=== PATIENT | male | born 1940 | race Caucasian/White ===

== ENCOUNTER 2017-07-08 09:10 | Observation (INO) ==
[2017-07-08] MEDS ORDERED: 0.9 % Sodium Chloride 1,000 ML IVC ONE (09:34)
--- NOTE | 2017-07-08 09:43 | Emergency Department Note ---
Disposition Clinical Impression: [id number] kidney injury, Dizziness, Near syncope, Exertional dyspnea Disposition: Admitted As Inpatient Condition: Good Time of Disposition: 12:32 General Adult HPI - General Chief complaint: ED Back Pain/Injury Stated complaint: Low back,hip pain,weakness Time Seen by Provider: 07/08/17 09:16 Source: patient, family Mode of arrival: wheelchair Limitations: no limitations Nursing Notes Reviewed: Yes Vital Signs Reviewed: Yes - History of Present Illness HPI Narrative: Patient presents to the ED via wheelchair with the chief complaint of dizziness. Patient reports that he has been feeling dizzy for about the last year but it has been worsening over the last few months. Reports that he has had several falls because he will stand up and feel very off-balance. States that he has seen his primary care physician for this, but no one has been able to figure out what was going on. States that he feels like he is on too many medications for his blood pressure, which he thinks could be contributing. States he just does not know what going on because he feels generally weak. Reports several falls over the last few months. Also complains of feeling short of breath sometimes at rest, but more so with exertion. He also gets dizzy with exertion. Denies any chest pain or heaviness. No abdominal pain, nausea, vomiting, diarrhea. Is also complaining of some low back pain with bilateral states that it makes his legs feel weak. No focal numbness, weakness or tingling. States that he just cannot keep going on like this. Pain Scale: 8 - Related Data Home Medications Medication Instructions Recorded Confirmed Antiox#10/Om3/Dha/Epa/Lut/Zeax 1 cap PO DAILY 07/08/17 07/08/17 [I-Caps with Lutein-[place] 3 Sfg] Aspirin [Lo-Dose Aspirin EC] 81 mg PO HS 07/08/17 07/08/17 Atorvastatin [Lipitor] 40 mg PO HS 07/08/17 07/08/17 Carvedilol [Coreg] 25 mg PO BID 07/08/17 07/08/17 Cholecalciferol (D-3) [Vitamin D] 5,000 unit PO DAILY 07/08/17 07/08/17 Clopidogrel [Plavix] 75 mg PO HS 07/08/17 07/08/17 Dutasteride [Dutasteride] 0.5 mg PO HS 07/08/17 07/08/17 Furosemide [Lasix] 20 mg PO DAILY 07/08/17 07/08/17 Gabapentin [Neurontin] 300 mg PO HS 07/08/17 07/08/17 Hydralazine HCl 100 mg PO BID 07/08/17 07/08/17 Insulin ASPART [NovoLOG] 15 - 18 unit SQ TIDWM 07/08/17 07/08/17 Insulin Glargine [Lantus] 35 unit SQ BID 07/08/17 07/08/17 Losartan Potassium [Cozaar] 50 mg PO DAILY 07/08/17 07/08/17 Magnesium Oxide [Magnesium] 400 mg PO BID 07/08/17 07/08/17 NIFEdipine XL (24 HR) [Procardia 60 mg PO HS 07/08/17 07/08/17 XL] Ranitidine HCl [Acid [employer]] 150 mg PO BID 07/08/17 07/08/17 Spironolactone [Aldactone] 25 mg PO BID 07/08/17 07/08/17 Allergies Allergy/AdvReac Type Severity Reaction Status Date / Time clonidine AdvReac Nausea Verified 07/08/17 12:03 enalaprilat [From Vasotec] AdvReac Nausea Verified 07/08/17 12:03 fentanyl AdvReac Nausea Verified 07/08/17 12:03 lisinopril AdvReac Nausea Verified 07/08/17 12:03 naproxen AdvReac Nausea Verified 07/08/17 12:03 simvastatin AdvReac Nausea Verified 07/08/17 12:03 tramadol AdvReac Nausea Verified 07/08/17 12:03 Review of Systems: As reviewed in the HPI. All other systems reviewed are negative or normal. Past Medical History - Past Medical History Attestation: Yes The following information was validated with the patient. Source: patient Medical history: Reports: arthritis, coronary artery disease, CVA, diabetes, GERD, glaucoma, hypertension, renal disease, other Surgical history: Reports: orthopedic, other (bilateral shoulder surgeries.), other (cervical and lumbar laminectmy with dissectomies.) Psychiatric history: Reports: anxiety, depression - Social History Smoking Status: Never smoker Smokeless Tobacco Status: No Alcohol use: Reports: none Drug use: Reports: none Physical Exam CONSTITUTIONAL: [no acute distress but does appear to feel unwell] SKIN: [Warm, dry, and intact without rash] EYES: [extraocular movements are intact, clear conjunctiva] HENT: [Normocephalic, atraumatic, moist mucus membranes] NECK: [no obvious swelling, normal range of motion, no carotid bruits] PULMONARY: [normal chest rise and fall, no respiratory distress or stridor CARDIOVASCULAR: [regular rate, distal extremities are warm and well perfused, no murmurs] GASTROINSTESTINAL: [nondistended, non-tender] GENITOURINARY: [deferred] NEUROLOGIC: [normal speech, moves all extremities, generalized weakness with no focal weakness. Finger to nose normal but slowed, rapid alternating movements slow but symmetric b/l, normal sensation throughout, CN 2-12 intact] MUSCULOSKELETAL: [no gross deformities, atraumatic] PSYCHIATRIC: [normal mood and affect] Course Course Narrative: Patient presenting with generalized weakness and dizziness which he describes more as near-syncope. Could be related to his multiple anti-hypertensive medications we are also considering neurologic and cardiogenic causes. Do not appreciate any murmurs to make me suspect aortic stenosis and he is not volume overloaded to suggest CHF. We will get labs including troponin, head CT, EKG, chest x-ray. We will likely need to admit for MRI, carotid ultrasound and echo. - Reevaluation(s) Reevaluation #1: Labs are back and are relatively unremarkable. He has a normal head CT and chest x-ray. His EKG is nonischemic. We will admit for the rest of the workup as described earlier. Patient and family agreeable with plan. Patient admitted to the hospitalist service under Dr. Ruelas. He did request that we get orthostatics, which have already been ordered. Vital Signs Temperature 98.7 F 07/08/17 09:13 Pulse Rate 64 07/08/17 09:13 Respiratory Rate 18 07/08/17 09:13 Blood Pressure 119/71 07/08/17 09:13 O2 Sat by Pulse Oximetry 95 07/08/17 09:13 Temperature 98.7 F 07/08/17 09:39 Pulse Rate 70 07/08/17 11:56 Respiratory Rate 18 07/08/17 12:06 Blood Pressure 122/59 07/08/17 12:06 O2 Sat by Pulse Oximetry 97 07/08/17 11:56 Oxygen Delivery Oxygen Delivery Room Air Medical Decision Making - Medical Records Medical records reviewed: Yes I reviewed the patient's medical records. - Lab Data Lab results reviewed: Yes I reviewed the patient's lab results. Result diagrams: 07/08/17 09:55 07/08/17 09:55 Lab Results 07/08/17 07/08/17 07/08/17 Range/Units 09:55 09:55 09:57 WBC 8.1 (4.3-11.1) K/mcL RBC 3.60 L (4.19-5.50) M/mcL Hgb 11.8 L (12.9-16.9) g/dL Hct 34.7 L (37.5-50.1) % MCV 96.4 (83.0-100.0) fL MCH 32.8 (28.0-33.3) pg MCHC 34.0 (31.6-35.5) g/dL RDW 13.1 (11.5-14.5) % Plt Count 246 (140-400) K/mcL MPV 9.6 (9.4-12.4) fL Immature Gran % 0.7 (0-4) % Seg Neutrophils % 67.4 % Lymphocytes % 16.9 % Monocytes % 9.9 % Eosinophils % 4.2 % Basophils % 0.9 % Neutrophils # 5.4 (1.6-8.9) K/mcL Lymphocytes # 1.4 (0.6-4.6) K/mcL Monocytes # 0.8 (0.0-1.3) K/mcL Eosinophils # 0.3 (0.0-0.6) K/mcL Basophils # 0.1 (0.0-0.2) K/mcL Sodium 138 (136-145) mEq/L Potassium 5.0 (3.5-5.1) mEq/L Chloride 110 H (98-107) mEq/L Carbon Dioxide 21 L (23-29) mEq/L BUN 48 H (8-23) mg/dL Creatinine 2.19 H (0.70-1.30) mg/dL Est GFR ( Amer) 35 L (> 60) Est GFR (Non-Af Amer) 29 L (> 60) BUN/Creatinine Ratio 22 (6-26) Glucose 170 H (70-105) mg/dL Calculated Osmolality 303 H (280-300) Calcium 8.9 (8.6-10.3) mg/dL Total Bilirubin 0.4 (0.3-1.0) mg/dL AST 14 (13-39) Units/L ALT 32 (7-52) Units/L Alkaline Phosphatase 44 (34-104) Units/L Troponin I < 0.03 (< 0.04) ng/mL Serum Total Protein 6.2 L (6.4-8.9) g/dL Albumin 3.9 (3.5-5.7) g/dL Globulin 2.3 L (2.4-3.5) g/dL Albumin/Globulin Ratio 1.7 (1.1-2.2) Urine Color Yellow (Yellow) Urine Clarity Clear (Clear) Urine pH 5.5 (5.0-8.0) pH Units Ur Specific [place] 1.024 (1.010-1.025) Urine Protein Negative (Neg-Trace) mg/dL Urine Glucose (UA) Normal (Normal) mg/dL Urine Ketones Negative (Negative) mg/dL Urine Blood Negative (Negative) Urine Nitrite Negative (Negative) Urine Bilirubin Negative (Negative) Urine Urobilinogen Normal (Normal) mg/dL Ur Leukocyte Esterase Negative (Negative) Ur Culture Indicated? NO (NO) - Radiology Data Radiology results reviewed: Yes I reviewed the patient's radiology results. - EKG Data EKG #1 EKG attestation: Yes I reviewed and interpreted this EKG. EKG results narrative: Sinus rhythm, rate 66, GA interval 186, QRS 93, QTc 400, left axis deviation, no acute ischemic changes
[2017-07-08 10:19] LABS: Basophils # 0.1 K/mcL (0.0-0.2); Basophils % 0.9 %; Eosinophils # 0.3 K/mcL (0.0-0.6); Eosinophils % 4.2 %; Hematocrit 34.7 % (37.5-50.1); Hemoglobin 11.8 g/dL (12.9-16.9); Immature Granulocytes % 0.7 % (0-4); Lymphocytes # 1.4 K/mcL (0.6-4.6); Lymphocytes % 16.9 %; Mean Corpuscular Hemoglobin 32.8 pg (28.0-33.3); Mean Corpuscular Volume 96.4 fL (83.0-100.0); Mean Platelet Volume 9.6 fL (9.4-12.4); Monocytes # 0.8 K/mcL (0.0-1.3); Monocytes % 9.9 %; Neutrophils # 5.4 K/mcL (1.6-8.9); Platelet Count 246 K/mcL (140-400); Red Cell Distribution Width 13.1 % (11.5-14.5); Segmented Neutrophils % 67.4 %
--- NOTE | 2017-07-08 10:26 | Emergency Department Note ---
Disposition Clinical Impression: [id number] kidney injury, Dizziness, Near syncope, Exertional dyspnea Disposition: Admitted As Inpatient Condition: Good General Adult HPI - General Chief complaint: ED Back Pain/Injury Stated complaint: Low back,hip pain,weakness Time Seen by Provider: 07/08/17 09:16 Source: patient, family Mode of arrival: wheelchair Limitations: no limitations - History of Present Illness Pain Scale: 8 - Related Data Home Medications Medication Instructions Recorded Confirmed Antiox#10/Om3/Dha/Epa/Lut/Zeax 1 cap PO DAILY 07/08/17 07/08/17 [I-Caps with Lutein-[place] 3 Sfg] Aspirin [Lo-Dose Aspirin EC] 81 mg PO HS 07/08/17 07/08/17 Atorvastatin [Lipitor] 40 mg PO HS 07/08/17 07/08/17 Carvedilol [Coreg] 25 mg PO BID 07/08/17 07/08/17 Cholecalciferol (D-3) [Vitamin D] 5,000 unit PO DAILY 07/08/17 07/08/17 Clopidogrel [Plavix] 75 mg PO HS 07/08/17 07/08/17 Dutasteride [Dutasteride] 0.5 mg PO HS 07/08/17 07/08/17 Furosemide [Lasix] 20 mg PO DAILY 07/08/17 07/08/17 Gabapentin [Neurontin] 300 mg PO HS 07/08/17 07/08/17 Hydralazine HCl 100 mg PO BID 07/08/17 07/08/17 Insulin ASPART [NovoLOG] 15 - 18 unit SQ TIDWM 07/08/17 07/08/17 Insulin Glargine [Lantus] 35 unit SQ BID 07/08/17 07/08/17 Losartan Potassium [Cozaar] 50 mg PO DAILY 07/08/17 07/08/17 Magnesium Oxide [Magnesium] 400 mg PO BID 07/08/17 07/08/17 NIFEdipine XL (24 HR) [Procardia 60 mg PO HS 07/08/17 07/08/17 XL] Ranitidine HCl [Acid Healthcare Insurance Sales Agent] 150 mg PO BID 07/08/17 07/08/17 Spironolactone [Aldactone] 25 mg PO BID 07/08/17 07/08/17 Allergies Allergy/AdvReac Type Severity Reaction Status Date / Time clonidine AdvReac Nausea Verified 07/08/17 12:03 enalaprilat [From Vasotec] AdvReac Nausea Verified 07/08/17 12:03 fentanyl AdvReac Nausea Verified 07/08/17 12:03 lisinopril AdvReac Nausea Verified 07/08/17 12:03 naproxen AdvReac Nausea Verified 07/08/17 12:03 simvastatin AdvReac Nausea Verified 07/08/17 12:03 tramadol AdvReac Nausea Verified 07/08/17 12:03 Past Medical History - Past Medical History Medical history: Reports: arthritis, coronary artery disease, CVA, diabetes, GERD, glaucoma, hypertension, renal disease, other Surgical history: Reports: orthopedic, other (bilateral shoulder surgeries.), other (cervical and lumbar laminectmy with dissectomies.) Psychiatric history: Reports: anxiety, depression - Social History Smoking Status: Never smoker Smokeless Tobacco Status: No Alcohol use: Reports: none Drug use: Reports: none Physical Exam - General Limitations: no limitations General appearance: alert, in no apparent distress Course Vital Signs Temperature 98.7 F 07/08/17 09:13 Pulse Rate 64 07/08/17 09:13 Respiratory Rate 18 07/08/17 09:13 Blood Pressure 119/71 07/08/17 09:13 O2 Sat by Pulse Oximetry 95 07/08/17 09:13 Temperature 97.7 F 07/08/17 12:30 Pulse Rate 68 07/08/17 12:30 Respiratory Rate 18 07/08/17 12:30 Blood Pressure 126/60 07/08/17 12:30 O2 Sat by Pulse Oximetry 96 07/08/17 12:30 Oxygen Delivery Oxygen Delivery Room Air Medical Decision Making - Lab Data Result diagrams: 07/08/17 09:55 07/08/17 09:55 Lab Results 07/08/17 07/08/17 07/08/17 Range/Units 09:55 09:55 09:57 WBC 8.1 (4.3-11.1) K/mcL RBC 3.60 L (4.19-5.50) M/mcL Hgb 11.8 L (12.9-16.9) g/dL Hct 34.7 L (37.5-50.1) % MCV 96.4 (83.0-100.0) fL MCH 32.8 (28.0-33.3) pg MCHC 34.0 (31.6-35.5) g/dL RDW 13.1 (11.5-14.5) % Plt Count 246 (140-400) K/mcL MPV 9.6 (9.4-12.4) fL Immature Gran % 0.7 (0-4) % Seg Neutrophils % 67.4 % Lymphocytes % 16.9 % Monocytes % 9.9 % Eosinophils % 4.2 % Basophils % 0.9 % Neutrophils # 5.4 (1.6-8.9) K/mcL Lymphocytes # 1.4 (0.6-4.6) K/mcL Monocytes # 0.8 (0.0-1.3) K/mcL Eosinophils # 0.3 (0.0-0.6) K/mcL Basophils # 0.1 (0.0-0.2) K/mcL Sodium 138 (136-145) mEq/L Potassium 5.0 (3.5-5.1) mEq/L Chloride 110 H (98-107) mEq/L Carbon Dioxide 21 L (23-29) mEq/L BUN 48 H (8-23) mg/dL Creatinine 2.19 H (0.70-1.30) mg/dL Est GFR ( Amer) 35 L (> 60) Est GFR (Non-Af Amer) 29 L (> 60) BUN/Creatinine Ratio 22 (6-26) Glucose 170 H (70-105) mg/dL Calculated Osmolality 303 H (280-300) Calcium 8.9 (8.6-10.3) mg/dL Total Bilirubin 0.4 (0.3-1.0) mg/dL AST 14 (13-39) Units/L ALT 32 (7-52) Units/L Alkaline Phosphatase 44 (34-104) Units/L Troponin I < 0.03 (< 0.04) ng/mL Serum Total Protein 6.2 L (6.4-8.9) g/dL Albumin 3.9 (3.5-5.7) g/dL Globulin 2.3 L (2.4-3.5) g/dL Albumin/Globulin Ratio 1.7 (1.1-2.2) Urine Color Yellow (Yellow) Urine Clarity Clear (Clear) Urine pH 5.5 (5.0-8.0) pH Units Ur Specific [place] 1.024 (1.010-1.025) Urine Protein Negative (Neg-Trace) mg/dL Urine Glucose (UA) Normal (Normal) mg/dL Urine Ketones Negative (Negative) mg/dL Urine Blood Negative (Negative) Urine Nitrite Negative (Negative) Urine Bilirubin Negative (Negative) Urine Urobilinogen Normal (Normal) mg/dL Ur Leukocyte Esterase Negative (Negative) Ur Culture Indicated? NO (NO) Attestation Statement - Attestation Attestation: I examined this patient and my medical decision-making was reviewed with the GYPSUM ROOFER/PA/Advanced Practice Nurse/Resident Physician. I agree with the documented findings, disposition and treatment plan as described except to the extent set forth below. Patient presents with multiple symptoms including generalized weakness, dyspnea with exertion and I did review the previous record, I have reviewed EKG showing normal sinus rhythm with rate of 66 without acute ischemic change and the patient does have a minimally weak appearance but is nontoxic in appearance, he does not have any vomiting or fevers. Workup in progress to look for intracranial mass or stroke, myocardial ischemia, question of abnormality is in progress. One other possibility is medication reaction or interactions or overmedication and the patient does feel that he takes too many blood pressure medicines so this is one other consideration. [id number]
[2017-07-08 10:38] LABS: Bilirubin,Urine Negative (Negative); Blood,Urine Negative (Negative); Clarity,Urine Clear (Clear); Color,Urine Yellow (Yellow); Glucose,Urine (UA) Normal (Normal); Ketones,Urine Negative (Negative); Leukocyte Esterase,Urine Negative (Negative); Nitrite,Urine Negative (Negative); PH,Urine 5.5 pH Units (5.0-8.0); Protein,Urine Negative (Neg-Trace); Specific Gravity,Urine 1.024 (1.010-1.025); Urobilinogen,Urine Normal (Normal)
[2017-07-08 10:39] LABS: Troponin I < 0.03 ng/mL (< 0.04)
[2017-07-08 11:11] LABS: Alanine Aminotransferase 32 Units/L (7-52); Albumin 3.9 g/dL (3.5-5.7); Albumin/Globulin Ratio 1.7 (1.1-2.2); Alkaline Phosphatase 44 Units/L (34-104); Aspartate Amino Transferase 14 Units/L (13-39); BUN/Creatinine Ratio 22 (6-26); Bilirubin,Total 0.4 mg/dL (0.3-1.0); Blood Urea Nitrogen 48 mg/dL (8-23); Calcium 8.9 mg/dL (8.6-10.3); Carbon Dioxide 21 mEq/L (23-29); Chloride 110 mEq/L (98-107); Globulin 2.3 g/dL (2.4-3.5); Glucose 170 mg/dL (70-105); Osmolality,Calculated 303 (280-300); Sodium 138 mEq/L (136-145); Total Protein 6.2 g/dL (6.4-8.9); eGFR For African Americans 35 (> 60); eGFR For Non-African Americans 29 (> 60)
[2017-07-08] MEDS ORDERED: Naloxone 0.4 MG/ML INJ IVP PRN (12:36)
[2017-07-08] MEDS ORDERED: D5% in Water 1,000 ML IVC PRN (12:49)
[2017-07-08] MEDS ORDERED: Dextrose Gel 15 GM/37.5 ML TUBE PO PRN ×2 (12:49)
[2017-07-08] MEDS ORDERED: *HR* Dextrose 50 % in Water (Syg) 50 ML SYRINGE IVP PRN (12:49)
--- NOTE | 2017-07-08 12:56 | Internal Med History&Physical ---
Date of Encounter: 07/08/17 Time of Encounter: 12:49 Internal Medicine - H&P: HPI Chief complaint: syncopal episode Admitted From: Emergency Dept Plans for Post Hospital Care: Home History of present illness: Mr. Mesa is a 77 year old male who has a background history of diabetes, hypertension, dyslipidemia, coronary artery disease, multiple back surgeries in the past, multiple shoulder surgeries in the past. Patient was brought to the emergency department as a shunt has a multiple episodes of fall/near fall in last 48 hours. It was noted that patient is progressively losing his balance and unable to stand on his feet. Patient recently had a fall. Patient denies chest pain, nausea, vomiting, abdominal pain, diarrhea or dizziness. Workup in the emergency room: Patient was evaluated in the emergency department. Basic labs were done. CT head was done. X-ray chest was negative for any acute abnormality. Reason for admission: Recurrent presyncopal syncopal episode of uncertain etiology with recurrent fall. This needs an workup as well as evaluation by the multi-speciality. Family history: Noncontributory Past Med Surg Social Fam HX - Past Medical History Medical history: arthritis, coronary artery disease, CVA, diabetes, GERD, glaucoma, hypertension, renal disease, other Psychiatric history: anxiety, depression - Past Surgical History Surgical History: orthopedic, other (bilateral shoulder surgeries.), other ( cervical and lumbar laminectmy with dissectomies.) - Social History Smoking Status: Never smoker Smokeless Tobacco Status: No Alcohol use: none Drug use: none - Family History Mother Family Member Ethnicity: Non- Living Status: Hx Family Cardiac Disorders: Yes (HEART PROBLEMS) Hx Family Respiratory Disorders: No Hx Family Cancer: No Hx Family GI Disorders: No Hx Family Endocrine Disorder: Yes (DM) Hx Family Neuromuscular Disorders: No Hx Family Neurologic Disorders: No Hx Family HEENT Disorders: No Hx Family Autoimmune Disorders: No Internal Medicine - H&P: Meds Antiox#10/Om3/Dha/Epa/Lut/Zeax [I-Caps with Lutein-[place] 3 Sfg] 1 cap PO DAILY 07/08/17 [History] Aspirin [Lo-Dose Aspirin EC] 81 mg PO HS 07/08/17 [History] Atorvastatin [Lipitor] 40 mg PO HS 07/08/17 [History] Carvedilol [Coreg] 25 mg PO BID 07/08/17 [History] Cholecalciferol (D-3) [Vitamin D] 5,000 unit PO DAILY 07/08/17 [History] Clopidogrel [Plavix] 75 mg PO HS 07/08/17 [History] Dutasteride [Dutasteride] 0.5 mg PO HS 07/08/17 [History] Furosemide [Lasix] 20 mg PO DAILY 07/08/17 [History] Gabapentin [Neurontin] 300 mg PO HS 07/08/17 [History] Hydralazine HCl 100 mg PO BID 07/08/17 [History] Insulin ASPART [NovoLOG] 15 - 18 unit SQ TIDWM 07/08/17 [History] Insulin Glargine [Lantus] 35 unit SQ BID 07/08/17 [History] Losartan Potassium [Cozaar] 50 mg PO DAILY 07/08/17 [History] Magnesium Oxide [Magnesium] 400 mg PO BID 07/08/17 [History] NIFEdipine XL (24 HR) [Procardia XL] 60 mg PO HS 07/08/17 [History] Ranitidine HCl [Acid [employer]obile Service [employer] Attendant] 150 mg PO BID 07/08/17 [History] Spironolactone [Aldactone] 25 mg PO BID 07/08/17 [History] 3 Allergy/AdvReac Type Severity Reaction Status Date / Time clonidine AdvReac Nausea Verified 07/08/17 12:03 enalaprilat [From Vasotec] AdvReac Nausea Verified 07/08/17 12:03 fentanyl AdvReac Nausea Verified 07/08/17 12:03 lisinopril AdvReac Nausea Verified 07/08/17 12:03 naproxen AdvReac Nausea Verified 07/08/17 12:03 simvastatin AdvReac Nausea Verified 07/08/17 12:03 tramadol AdvReac Nausea Verified 07/08/17 12:03 All Systems PM: A 10-system review of systems was performed and is negative for pertinent findings except as documented above in the HPI. - Constitutional Constitutional: fatigue, lethargy, malaise, night sweats, weakness - EENT Eyes: no change in vision, no discharge, no pain, no photophobia Ears: no ear discharge, no ear pain, no tinnitus Nose, mouth and throat: no dysphagia, no nasal discharge, no neck pain, no sore throat - Cardiovascular Cardiovascular ROS IM: no chest pain, no diaphoresis, no dyspnea, no lightheadedness, no palpitations, no syncope - Respiratory Respiratory: no cough, no dyspnea, no wheezing, no excessive phlegm production - Gastrointestinal Gastrointestinal: no abdominal pain, no diarrhea, no hematemesis, no hematochezia, no melena, no nausea, no vomiting - Musculoskeletal Musculoskeletal ROS IM: no numbness, no tingling - Integumentary Integumentary IM: no rash, no unusual bruising - Neurological Neurological ROS: no confusion, no convulsions, no focal weakness, no numbness, no tingling, no tremor(s) - Hematologic/Lymphatic Hematologic/Lymphatic: no easy bruising - Constitutional Vitals: Temp Pulse Resp BP Pulse Ox 97.7 F 68 18 126/60 96 07/08/17 12:30 07/08/17 12:30 07/08/17 12:30 07/08/17 12:30 07/08/17 12:30 General appearance: Present: A&O X 3, pleasant, no acute distress, answers questions appropriately - Head Head exam: Present: atraumatic, normocephalic - Eye Eye exam: Present: PERRL, conjuntiva pink, sclera anicteric Pupils: Present: PERRL - Neck Neck exam general surgery: Present: supple, trachea midline. Absent: lymphadenopathy - Respiratory Respiratory exam: Present: CTAB. Absent: accessory muscle use, rales, rhonchi, wheezes - Cardiovascular Cardiovascular exam: Present: RRR, +S1, +S2. Absent: diastolic murmur, gallop, rubs, systolic murmur - GI/Abdominal GI/Abdominal exam: Present: normal bowel sounds, soft, no peritoneal signs. Absent: distended, tenderness - Extremities Exam Extremities exam: Present: warm, radial pulses palpable and symmetrical. Absent : calf tenderness, cyanotic, pedal edema - Neurological Exam Neurological exam: Present: CN II-XII intact, oriented X3, no focal deficits. Absent: pronater drift, facial droop, speech deficit - Skin Skin exam: Present: dry, intact Internal Med - H&P Results - Labs CBC & Chem 7: 07/08/17 09:55 07/08/17 09:55 - Assessment and plan (1) Near syncope Current Visit: Yes Status: Acute Assessment and plan: Patient had a multiple episodes of near-syncope/syncope. Plan: Admit as observation. CT head: Negative. Ultrasound carotid, echocardiogram. Patient was complaining of hip joint pain. We will get the imaging of both hips. I examined this patient in the emergency department room #33. Patient's daughter and son-in-law were present at the bedside. Plan of care explained to the patient and family members. They verbalize understanding. (2) CAD (coronary artery disease) Current Visit: No Status: Acute Assessment and plan: Patient does have a coronary artery disease. At this point patient is on aspirin/Plavix/coreg/Lipitor We will continue home medication. Patient does not have any active chest pain now Qualifiers: Coronary Disease-Associated Artery/Lesion type: [place] artery [place] vs. transplanted heart: [place] heart Associated angina: without angina Qualified Code(s): I25.10 - Atherosclerotic heart disease of [place] coronary artery without angina pectoris (3) CKD (chronic kidney disease) Current Visit: No Status: Acute Assessment and plan: Patient is known to have a chronic kidney disease stage III. We will closely monitor the patient's renal physician. Qualifiers: Chronic kidney disease stage: stage 3 (moderate) Qualified Code(s): N18.3 - Chronic kidney disease, stage 3 (moderate) (4) Hypertension Current Visit: No Status: Acute Assessment and plan: Patient is presently on 3 different kinds of antihypertensive medication. This may be one of the reason for his recurrent dizziness. At this point I would like to hold the hydralazine for now. Close monitoring of the blood pressure. Qualifiers: Hypertension type: essential hypertension Qualified Code(s): I10 - Essential (primary) hypertension (5) Uncontrolled type 2 DM with peripheral circulatory disorder Current Visit: No Status: Acute Assessment and plan: Patient does have uncontrolled type 2 diabetes with peripheral circulatory disorder. We have resume the patient's home medication for the diabetes. We will follow the recommendations from the subcutaneous insulin order set. (6) DVT prophylaxis Current Visit: No Status: Acute Assessment and plan: Heparin Medical decision making: This patient has a moderate to severe risk of worsening in spite of being on appropriate medication due to the underlying complex comorbid condition. - Time Spent With Patient Total time spent is greater than 50% in coordination of care (as documented) at patient's floor/unit and/or counseling patient:
--- NOTE | 2017-07-08 15:05 | Electrocardiograph Report ---
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
[2017-07-08] MEDS: *HR* Heparin 5,000 UNIT/ML VIAL SQ SCH ×2 (15:28→21:10)
[2017-07-08] MEDS: Insulin LISPRO 300 UNITS/3 ML VIAL SQ SCH ×3 (16:58→20:35)
[2017-07-08] MEDS ORDERED: NON-FORMULARY MEDICATION 1 EACH EACH (Insulin Aspart 0 UNIT) SQ SCH (17:00)
[2017-07-08] MEDS ORDERED: NON-FORMULARY MEDICATION 1 EACH EACH (Insulin Glargine [Lantus] 35 UNIT) SQ SCH (21:00)
[2017-07-08] MEDS ORDERED: NIFEdipine XL (24 HR) 60 MG TAB.ER.24 PO SCH (21:00)
[2017-07-08] MEDS ORDERED: NON-FORMULARY MEDICATION 1 EACH EACH (Ranitidine Hcl [Acid Reducer] 150 MG) PO SCH (21:00)
[2017-07-08] MEDS: Magnesium Oxide 400 MG TABLET PO SCH (21:10)
[2017-07-08] MEDS: Spironolactone 25 MG TABLET PO SCH (21:10)
[2017-07-08] MEDS: Finasteride 5 MG TABLET PO SCH (21:10)
[2017-07-08] MEDS: Aspirin Enteric Coated 81 MG Tablet PO SCH (21:10)
[2017-07-08] MEDS: Insulin DETEMIR 100 UNIT/ML X5UNITS SQ SCH (21:12)
[2017-07-09 01:08] LABS: Basophils # 0.1 K/mcL (0.0-0.2); Basophils % 0.9 %; Eosinophils # 0.4 K/mcL (0.0-0.6); Eosinophils % 5.8 %; Hematocrit 32.7 % (37.5-50.1); Hemoglobin 10.7 g/dL (12.9-16.9); Immature Granulocytes % 0.4 % (0-4); Lymphocytes # 1.8 K/mcL (0.6-4.6); Lymphocytes % 25.2 %; Mean Corpuscular HGB Conc 32.7 g/dL (31.6-35.5); Mean Corpuscular Hemoglobin 31.5 pg (28.0-33.3); Mean Corpuscular Volume 96.2 fL (83.0-100.0); Mean Platelet Volume 9.6 fL (9.4-12.4); Monocytes # 0.8 K/mcL (0.0-1.3); Platelet Count 243 K/mcL (140-400); Red Cell Distribution Width 12.9 % (11.5-14.5); Segmented Neutrophils % 56.7 %
[2017-07-09 01:10] LABS: INR 1.1; Prothrombin Time 11.3 Seconds (9.4-12.1)
[2017-07-09 01:13] LABS: Activated Partial Thrombo Time 26.3 Seconds (26.0-36.0)
[2017-07-09 01:32] LABS: Albumin 3.8 g/dL (3.5-5.7); Albumin/Globulin Ratio 1.7 (1.1-2.2); Bilirubin,Total 0.2 mg/dL (0.3-1.0); Calcium 8.8 mg/dL (8.6-10.3); Chol/HDL Ratio 3.4 (0-4.9); Globulin 2.2 g/dL (2.4-3.5); Magnesium 2.1 mg/dL (1.6-2.6); Phosphorous 4.2 mg/dL (2.7-4.5); Potassium 4.8 mEq/L (3.5-5.1)
[2017-07-09] MEDS: *HR* Heparin 5,000 UNIT/ML VIAL SQ SCH ×3 (05:48→21:17)
[2017-07-09] MEDS: Insulin LISPRO 300 UNITS/3 ML VIAL SQ SCH ×7 (07:24→21:01)
[2017-07-09] MEDS: Spironolactone 25 MG TABLET PO SCH ×2 (08:35→21:17)
[2017-07-09] MEDS: Cholecalciferol (D-3) 1,000 UNIT TABLET PO SCH (08:35)
[2017-07-09] MEDS: Famotidine 20 MG TABLET PO SCH (08:35)
[2017-07-09] MEDS: Magnesium Oxide 400 MG TABLET PO SCH ×2 (08:35→21:17)
[2017-07-09] MEDS: Insulin DETEMIR 100 UNIT/ML X5UNITS SQ SCH ×2 (08:39→21:18)
[2017-07-09] MEDS: Multivit/Ca/Min/Fe/FA 1 TAB TABLET PO SCH (10:41)
[2017-07-09] MEDS: Acetaminophen 325 MG TABLET PO PRN ×2 (11:04→19:39)
--- NOTE | 2017-07-09 17:45 | Internal Med Progress Note ---
Date of Encounter: 07/09/17 Time of Encounter: 16:17 - Assessment and plan (1) Near syncope Current Visit: Yes Status: Acute Assessment and plan: Patient has had multiple episodes of near-syncope/syncope over last [address] head negative. U/S carotids with non-stenotic plaque. ECHO with LVEF 60-65%, normal LV size and function, mild concentric left ventricular hypertrophy, mild left ventricular diastolic dysfunction, normal RV structure and function, mild pulmonary hypertension, and no significant valvular dysfunction. This issues seems to be subacute, and PCP and recovery assistant have been trying to address BP medication for last 1 year. I believe that this most recent syncopal episode is likely secondary to hypotension with orthostatic worsening. Dizziness at this time is only when get gets up and tries to ambulate. Will order 1L normal saline bolus and IVF at 125 ml/hr to address hypotension as per below. Will hold home hydralazine and home nifedipine. Up only with assist. Will consult PT/OT as family believes he may be having difficulty walking due to multiple back/hip surgeries and chronic pain. Will consult his recovery assistant group as they have been trying to address this issue and may be able to provide some insight and guidance. Appreciate their input. Will monitor vitals and symptoms closely. If dizziness resolves with above measures, plan for discharge home tomorrow with close PCP and nephrology follow up. (2) Hypotension Current Visit: Yes Status: Acute Assessment and plan: Will give 1L NS bolus and continue IV NS at 125 ml/hr. BP medications adjusted as per above. Monitor vitals closely. Qualifiers: Hypotension type: hypotension due to drug Qualified Code(s): I95.2 - Hypotension due to drugs (3) CAD (coronary artery disease) Current Visit: Yes Status: Chronic Assessment and plan: Continue home medications, except adjustments made to BP regimen as per above. Qualifiers: Coronary Disease-Associated Artery/Lesion type: [place] artery [place] vs. transplanted heart: [place] heart Associated angina: without angina Qualified Code(s): I25.10 - Atherosclerotic heart disease of [place] coronary artery without angina pectoris (4) CKD (chronic kidney disease) Current Visit: Yes Status: Chronic Assessment and plan: History of chronic kidney disease stage III. Nephrology consulted; appreciate input. IVF as per above. Creatinine currently on high end of baseline. Repeat BMP in AM. Qualifiers: Chronic kidney disease stage: stage 3 (moderate) Qualified Code(s): N18.3 - Chronic kidney disease, stage 3 (moderate) (5) Hypertension Current Visit: Yes Status: Chronic Assessment and plan: Currently hypotensive and symptomatic. Adjusting BP medications as per above. Nephrology consulted; appreciate input. Monitor vitals closely. 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 (7) DVT prophylaxis Current Visit: Yes Status: Acute Assessment and plan: Continue SQ heparin. - Time Spent With Patient Total time spent is greater than 50% in coordination of care (as documented) at patient's floor/unit and/or counseling patient: 25 - 35 minutes - Subjective Interval history: Patient had no acute events overnight. No dizziness at rest during my interview and exam. He did have dizziness when getting up earlier today. He states that PCP and recovery assistant have been trying to optimize BP medications for last 1 year. He denies chest pain, SOB, fever, chills, nausea, vomiting, or abdominal pain. He has no complaints at this time. - Constitutional Vitals: Temp Pulse Resp BP Pulse Ox 97.4 F L 61 17 131/64 95 07/09/17 15:24 07/09/17 15:24 07/09/17 15:24 07/09/17 15:24 07/09/17 15:24 General appearance: Present: cooperative, A&O X 3, pleasant, no acute distress, obese, answers questions appropriately - Respiratory Respiratory exam: Present: CTAB. Absent: accessory muscle use, rales, rhonchi, wheezes Additional comments: Normal WOB - Cardiovascular Cardiovascular exam: Present: RRR, +S1, +S2. Absent: diastolic murmur, gallop, rubs, systolic murmur Additional comments: No BLE edema - GI/Abdominal GI/Abdominal exam: Present: normal bowel sounds, soft. Absent: distended, hepatomegaly, mass, splenomegaly, tenderness - Neurological Exam Neurological exam: Present: alert, CN II-XII intact, oriented X3, no focal deficits, strengths equal and symetr throughout. Absent: motor sensory deficit , facial droop, speech deficit - Psychiatric Psychiatric exam: Present: normal affect, normal mood. Absent: agitated, anxious, depressed - Skin Skin exam: Present: dry, intact, warm. Absent: cyanosis, rash Internal Medicine: Result - Labs CBC & Chem 7: 07/09/17 00:37 07/09/17 00:37 Labs: Short CBC 07/09/17 Range/Units 00:37 WBC 7.0 (4.3-11.1) K/mcL Hgb 10.7 L (12.9-16.9) g/dL Hct 32.7 L (37.5-50.1) % Plt Count 243 (140-400) K/mcL Neutrophils # 4.0 (1.6-8.9) K/mcL BMP 07/09/17 00:37 Sodium 138 Potassium 4.8 Chloride 109 H Carbon Dioxide 21 L BUN 41 H Creatinine 2.12 H Glucose 209 H Calcium 8.8 Cardiac Enzymes 07/08/17 07/09/17 Range/Units 19:54 00:37 Troponin I < 0.03 < 0.03 (< 0.04) ng/mL Liver Function 07/09/17 Range/Units 00:37 Total Bilirubin 0.2 L (0.3-1.0) mg/dL AST 12 L (13-39) Units/L ALT 26 (7-52) Units/L Alkaline Phosphatase 41 (34-104) Units/L Albumin 3.8 (3.5-5.7) g/dL - ABG Interpretation ABG results: PT/INR, D-dimer PT 11.3 Seconds (9.4-12.1) 07/09/17 00:37 - Impressions Impressions Echocardiogram 07/08/17 12:45 Impressions: LVEF 60-65%. Normal LV chamber size and function. Mild concentric left ventricular hypertrophy. Mild left ventricular diastolic dysfunction. Normal right ventricular structure and function. Mild pulmonary hypertension. No significant valvular dysfunction. Left Ventricular Wall Motion: Rest Echo Findings All wall segments showed normal motion. Findings: Study Quality * Technically adequate exam. ECG Findings * Normal sinus rhythm. Left Ventricle * LVEF 60-65%. * Normal LV chamber size and function. * Mild concentric left ventricular hypertrophy. * Mild left ventricular diastolic dysfunction. Right Ventricle * Normal right ventricular structure and function. Left Atrium * Mildly dilated left atrium. Right Atrium * Mildly dilated right atrium. Aortic Valve * Trileaflet aortic valve. * Mildly sclerotic aortic valve leaflets. * No aortic regurgitation. * No aortic stenosis. Mitral Valve * Mild mitral annular calcification * Trace mitral regurgitation. * No mitral stenosis. Tricuspid Valve * Normal tricuspid valve structure and function. * Trace tricuspid regurgitation. * Mild pulmonary hypertension. Pulmonic Valve * Pulmonic valve not well visualized. Aorta * Normally sized aortic root. Pericardium * The pericardium appears normal. IVC * The IVC is not well evaluated. Pulmonary Artery * Normal visualized portions of the main pulmonary artery. Consult Discharge Plan - Plan Referrals: Raven Rhodes DO [Primary Care Provider] -
[2017-07-09] MEDS ORDERED: 0.9 % Sodium Chloride 1,000 ML IVC ONE (17:52)
[2017-07-09] MEDS: 0.9 % Sodium Chloride 1,000 ML IVC SCH (19:39)
[2017-07-09] MEDS ORDERED: NIFEdipine XL (24 HR) 30 MG TAB.ER.24 PO SCH (21:00)
[2017-07-09] MEDS: Finasteride 5 MG TABLET PO SCH (21:17)
[2017-07-09] MEDS: Aspirin Enteric Coated 81 MG Tablet PO SCH (21:17)
[2017-07-10] MEDS: 0.9 % Sodium Chloride 1,000 ML IVC SCH (03:17)
[2017-07-10 05:42] LABS: Basophils # 0.1 K/mcL (0.0-0.2); Basophils % 0.8 %; Eosinophils # 0.5 K/mcL (0.0-0.6); Eosinophils % 6.7 %; Hematocrit 32.7 % (37.5-50.1); Hemoglobin 11.1 g/dL (12.9-16.9); Immature Granulocytes % 0.4 % (0-4); Lymphocytes # 1.6 K/mcL (0.6-4.6); Lymphocytes % 21.6 %; Mean Corpuscular HGB Conc 33.9 g/dL (31.6-35.5); Mean Corpuscular Hemoglobin 32.5 pg (28.0-33.3); Mean Corpuscular Volume 95.6 fL (83.0-100.0); Mean Platelet Volume 9.5 fL (9.4-12.4); Monocytes % 12.7 %; Neutrophils # 4.3 K/mcL (1.6-8.9); Platelet Count 233 K/mcL (140-400); Red Blood Count 3.42 M/mcL (4.19-5.50); Red Cell Distribution Width 12.8 % (11.5-14.5); Segmented Neutrophils % 57.8 %
[2017-07-10 06:00] LABS: Calcium 8.9 mg/dL (8.6-10.3)
[2017-07-10] MEDS: *HR* Heparin 5,000 UNIT/ML VIAL SQ SCH ×2 (06:03→13:53)
[2017-07-10] MEDS: Insulin LISPRO 300 UNITS/3 ML VIAL SQ SCH ×4 (07:55→11:28)
[2017-07-10] MEDS: Famotidine 20 MG TABLET PO SCH (08:55)
[2017-07-10] MEDS: Multivit/Ca/Min/Fe/FA 1 TAB TABLET PO SCH (08:55)
[2017-07-10] MEDS: Magnesium Oxide 400 MG TABLET PO SCH (08:55)
[2017-07-10] MEDS: Spironolactone 25 MG TABLET PO SCH (08:56)
[2017-07-10] MEDS: Cholecalciferol (D-3) 1,000 UNIT TABLET PO SCH (08:56)
[2017-07-10] MEDS: Insulin DETEMIR 100 UNIT/ML X5UNITS SQ SCH (08:57)
[2017-07-10] MEDS ORDERED: NIFEdipine XL (24 HR) 30 MG TAB.ER.24 PO SCH (12:00)
--- NOTE | 2017-07-10 13:12 | Nephrology Consult Note ---
Date of Encounter: 07/10/17 Time of Encounter: 12:52 Assessment and Plan (1) CKD (chronic kidney disease) Status: Chronic REnal function stable. He is followed by Dr. Mercado. Qualifiers: Chronic kidney disease stage: stage 3 (moderate) Qualified Code(s): N18.3 - Chronic kidney disease, stage 3 (moderate) (2) Hypertension Status: Chronic Patient describes labile hypertension. Currently his blood pressure is sightly elevated and I spoke with the covering hospitalist to add enough medication to get his SBP around 150 prior to discharge. I recommend he follow with Dr. Mercado for additional blood pressure management. Consider work-up for secondary causes given his report of labile blood pressure and possible symptoms with a sbp in the 120s?. Will defer for outpatient managment. Patient is currently asymptomatic with holding 2 antihypertensive medications. If patient remains asymptomatic I would be okay with discharge from a renal standpoint. Qualifiers: Hypertension type: essential hypertension Qualified Code(s): I10 - Essential (primary) hypertension History of Present Illness - Reason for Consult Consult date: 07/10/17 Chronic Kidney Disease - Chief Complaint near syncope - History of Present Illness Patient seen his family is at his bedside. Please see admission H&P for details. Patient reports he has a history of labile blood pressure and recently his medications were adjusted. He experienced a near syncopal episode. At the time of evaluation he states he feels "fine". He denies chest pain, dyspnea, palpitations, weakness or any other problems. Past Med Surg Social Fam HX - Past Medical History Medical history: arthritis, coronary artery disease, CVA, diabetes, GERD, glaucoma, hypertension, renal disease, other Psychiatric history: anxiety, depression - Past Surgical History Surgical History: orthopedic, other, other - Social History Smoking Status: Never smoker Smokeless Tobacco Status: No Alcohol use: none Drug use: none - Family History Mother Family Member Ethnicity: Non- Living Status: Hx Family Cardiac Disorders: Yes (HEART PROBLEMS) Hx Family Respiratory Disorders: No Hx Family Cancer: No Hx Family GI Disorders: No Hx Family Endocrine Disorder: Yes (DM) Hx Family Neuromuscular Disorders: No Hx Family Neurologic Disorders: No Hx Family HEENT Disorders: No Hx Family Autoimmune Disorders: No Medications and Allergies Antiox#10/Om3/Dha/Epa/Lut/Zeax [I-Caps with Lutein-[place] 3 Sfg] 1 cap PO DAILY 07/08/17 [History] Aspirin [Lo-Dose Aspirin EC] 81 mg PO HS 07/08/17 [History] Atorvastatin [Lipitor] 40 mg PO HS 07/08/17 [History] Carvedilol [Coreg] 25 mg PO BID 07/08/17 [History] Cholecalciferol (D-3) [Vitamin D] 5,000 unit PO DAILY 07/08/17 [History] Clopidogrel [Plavix] 75 mg PO HS 07/08/17 [History] Dutasteride 0.5 mg PO HS 07/08/17 [History] Furosemide [Lasix] 20 mg PO DAILY 07/08/17 [History] Gabapentin [Neurontin] 300 mg PO HS 07/08/17 [History] Insulin ASPART [NovoLOG] 15 - 18 unit SQ TIDWM 07/08/17 [History] Insulin Glargine [Lantus] 35 unit SQ BID 07/08/17 [History] Losartan Potassium [Cozaar] 50 mg PO DAILY 07/08/17 [History] Magnesium Oxide [Magnesium] 400 mg PO BID 07/08/17 [History] Ranitidine HCl [Acid Scoop Machine Operator] 150 mg PO BID 07/08/17 [History] Spironolactone [Aldactone] 25 mg PO BID 07/08/17 [History] NIFEdipine XL (24 HR) [Procardia XL] 30 mg PO DAILY 7 Days #7 tab.er.24 [Rx] NIFEdipine XL (24 HR) [Procardia XL] 30 mg PO DAILY 7 Days #7 tablet.er [Rx] 3 Allergy/AdvReac Type Severity Reaction Status Date / Time clonidine AdvReac Nausea Verified 07/08/17 12:03 enalaprilat [From Vasotec] AdvReac Nausea Verified 07/08/17 12:03 fentanyl AdvReac Nausea Verified 07/08/17 12:03 lisinopril AdvReac Nausea Verified 07/08/17 12:03 naproxen AdvReac Nausea Verified 07/08/17 12:03 simvastatin AdvReac Nausea Verified 07/08/17 12:03 tramadol AdvReac Nausea Verified 07/08/17 12:03 Review of Systems All Systems: reviewed and no additional remarkable complaints except as stated ( as documented in the HPI.) Exam - Vital Signs Vital signs: Initial Vital Signs Temp Pulse Resp BP Pulse Ox 98.7 F 64 18 119/71 95 07/08/17 09:13 07/08/17 09:13 07/08/17 09:13 07/08/17 09:13 07/08/17 09:13 Vital Signs - Last 8 Hours Temp Pulse Resp BP Pulse Ox 07/10/17 11:00 98.3 F 56 18 161/78 97 07/10/17 07:32 98.2 F 62 16 174/75 97 Intake and Output 07/09/17 07/10/17 07/10/17 23:59 07:59 15:59 Intake Total 240 / 240 1000 / 1000 120 / 120 Output Total 100 / 100 650 / 650 200 / 200 Balance 140 / 140 350 / 350 -80 / -80 Intake: IV Fluids 1000 / 1000 0.9 % Sodium Chloride 1,000 ML 1000 / 1000 @ 125 mls/hr IVC .Q8H MELITON Rx#: [id number] Oral 240 / 240 120 / 120 Output: Urine 100 / 100 650 / 650 200 / 200 Other: Meal Dinner Breakfast Percent of Meal Consumed 85% 100% Weight 93.894 kg Blood Glucose* 99 88 195 Patient Weight 07/10/17 23:59 Weight 93.894 kg - General Appearance General appearance: well-developed, well-nourished, obese EENT: ATNC Neck: supple Respiratory: clear Cardiology: no edema, regular rate, regular rhythm Gastrointestinal: obese Integumentary: warm and dry Neurologic: alert and oriented x3 Musculoskeletal: no cyanosis Psychiatric: mood/affect appropriate Results - Lab Results 07/10/17 04:51 07/10/17 04:51 Most recent lab results Calcium 8.9 mg/dL (8.6-10.3) 07/10/17 04:51 Phosphorus 4.2 mg/dL (2.7-4.5) 07/09/17 00:37 Magnesium 2.1 mg/dL (1.6-2.6) 07/09/17 00:37 Consult Discharge Plan - Plan Instructions: Syncope (DC), Hypotension (DC) Additional Instructions: Follow up with PCP in 2-3 days after discharge. Recheck BMP (CKD) at that time. Recheck BP at that time (labile hypertension). Hydralazine was discontinued during this hospitalization. Nifedipine dose was decreased during this hospitalization. Please adjust blood pressure medications as necessary to maintain systolic BP < 150 without syncope/dizziness. Follow up with nephrology as directed. Referred to outpatient PT/OT. Referrals: Raven Rhodes DO [Primary Care Provider] - Prescriptions: NIFEdipine XL (24 HR) [Procardia XL] 30 mg PO DAILY 7 Days #7 tab.er.24 NIFEdipine XL (24 HR) [Procardia XL] 30 mg PO DAILY 7 Days #7 tablet.er
[2017-07-10 13:25] VITALS: BP 139/55
--- NOTE | 2017-07-10 15:27 | Discharge Summary ---
- NOTES TO OUTPATIENT PROVIDER Notes to Outpatient Provider: Follow up with PCP in 2-3 days after discharge. Recheck BMP (CKD) at that time. Recheck BP at that time (labile hypertension). Hydralazine was discontinued during this hospitalization. Nifedipine dose was decreased during this hospitalization. Please adjust blood pressure medications as necessary to maintain systolic BP < 150 without syncope/ dizziness. Follow up with nephrology as directed. Referred to outpatient PT/ OT. Orders not resulted at time of discharge: Pending orders 07/11/17 04:00 Basic Metabolic Panel AM 0400 CBC [Complete Blood Count] [HEME] AM 0400 Date of Encounter: 07/10/17 Time of Encounter: 14:17 - Discharge Diagnosis (1) Near syncope Priority: Primary Status: Resolved (2) Hypotension Priority: Secondary Status: Resolved Qualifiers: Hypotension type: hypotension due to drug Qualified Code(s): I95.2 - Hypotension due to drugs (3) CAD (coronary artery disease) Priority: Secondary Status: Chronic Qualifiers: Coronary Disease-Associated Artery/Lesion type: [place] artery [place] vs. 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 Mesa is a 77 year old male admitted for syncope likely secondary to hypotension. Patient was admitted to general medical floor with telemetry. Fall precautions were instituted. He was given 1L NS bolus on the floor, then continued at NS at 100 ml/hr. Home hydralazine and nifedipine were held. ECHO and carotid ultrasound were obtained. ECHO showed LVEF 60-65%, normal LV size and function, mild concentric LV hypertrophy, mild LV diastolic dysfunction, normal RV structure and function, mild pulmonary hypertension, and no significant valvular dysfunction. Carotid duplex showed non-stenotic plaque bilaterally. Patient's syncope/dizziness resolved the next day with improvement in BP to 160s. Given complicated labile hypertension being managed by his graphotype operator Dr. Mercado, covering graphotype operator Dr. Castro was consulted. He recommended keeping systolic BP < 150. Patient's nifedipine was restarted at half usual dose of 30 mg QD. BP after this improved to systolic 130s, and he was still asymptomatic. He had PT/OT evaluation, and they recommended outpatient therapy. He will be provided a prescription for outpatient PT/OT. He will follow up with PCP in 2-3 days after discharge. BMP (CKD) can be rechecked at that time. BP can be rechecked at that time (labile hypertension). Hydralazine was discontinued during this hospitalization. Nifedipine dose was decreased during this hospitalization. Please adjust blood pressure medications as necessary to maintain systolic BP < 150 without syncope/ dizziness. Follow up with nephrology as directed. Patient has met maximum benefit of this hospitalization and will be discharged home in stable condition. Discharge discussed with: patient, nurse, clinical consultant (Program Rep Dr. Castro) - Time Spent with Patient Total time spent providing and/or coordinating discharge services: Less than 30 minutes - Discharge Medications Prescriptions: RX: NIFEdipine XL (24 HR) [Procardia XL] 30 mg PO DAILY 7 Days #7 tab.er.24 Home Medications: RX: Antiox#10/Om3/Dha/Epa/Lut/Zeax [I-Caps with Lutein-[place] 3 Sfg] 1 cap PO DAILY 07/08/17 [History] RX: Aspirin [Lo-Dose Aspirin EC] 81 mg PO HS 07/08/17 [History] RX: Atorvastatin [Lipitor] 40 mg PO HS 07/08/17 [History] RX: Carvedilol [Coreg] 25 mg PO BID 07/08/17 [History] RX: Cholecalciferol (D-3) [Vitamin D] 5,000 unit PO DAILY 07/08/17 [History] RX: Clopidogrel [Plavix] 75 mg PO HS 07/08/17 [History] RX: Dutasteride 0.5 mg PO HS 07/08/17 [History] RX: Furosemide [Lasix] 20 mg PO DAILY 07/08/17 [History] RX: Gabapentin [Neurontin] 300 mg PO HS 07/08/17 [History] RX: Insulin ASPART [NovoLOG] 15 - 18 unit SQ TIDWM 07/08/17 [History] RX: Insulin Glargine [Lantus] 35 unit SQ BID 07/08/17 [History] RX: Losartan Potassium [Cozaar] 50 mg PO DAILY 07/08/17 [History] RX: Magnesium Oxide [Magnesium] 400 mg PO BID 07/08/17 [History] RX: Ranitidine HCl [Acid Support Merchandiser] 150 mg PO BID 07/08/17 [History] RX: Spironolactone [Aldactone] 25 mg PO BID 07/08/17 [History] RX: NIFEdipine XL (24 HR) [Procardia XL] 30 mg PO DAILY 7 Days #7 tab.er.24 02/15 [Rx] Allergies/Adverse Reactions: 3 Allergy/AdvReac Type Severity Reaction Status Date / Time clonidine AdvReac Nausea Verified 07/08/17 12:03 enalaprilat [From Vasotec] AdvReac Nausea Verified 07/08/17 12:03 fentanyl AdvReac Nausea Verified 07/08/17 12:03 lisinopril AdvReac Nausea Verified 07/08/17 12:03 naproxen AdvReac Nausea Verified 07/08/17 12:03 simvastatin AdvReac Nausea Verified 07/08/17 12:03 tramadol AdvReac Nausea Verified 07/08/17 12:03 Date of admission: 07/08/17 11:47 Primary care physician: Nat Torres Consults: 07/09/17 14:59 Consult to Physical Therapy [CONS] Routine Comment: Evaluate, develop and implement POC Reason for Consult: weakness, trouble walking Does patient have active BEDREST order?: No Is patient medically & hemodynamically stable?: Yes Patient assessed for mobility or mobilized this visit?: Yes 07/09/17 15:13 Consult to Nephrology [CONS] Routine Consulting Provider: Kidney Kim/SARA/TALON/TED Reason for Consult: CKD 3, HTN Call Completed: No 07/10/17 08:44 Consult to Physical Therapy [CONS] Stat Comment: Evaluate, develop and implement POC Reason for Consult: Please see today. Evaluate, treat, and make recommendations. Plan for discharge today. Thanks. Does patient have active BEDREST order?: No Is patient medically & hemodynamically stable?: Yes Patient assessed for mobility or mobilized this visit?: No Discharging clinician: Yvan Green Anticipated date of discharge: 07/10/17 - Constitutional Vitals: Temp Pulse Resp BP Pulse Ox 98.3 F 63 18 139/55 97 07/10/17 11:00 07/10/17 13:23 07/10/17 11:00 07/10/17 13:24 07/10/17 11:00 General appearance: Present: cooperative, A&O X 3, pleasant, no acute distress, obese, answers questions appropriately - Respiratory Respiratory exam: Present: CTAB. Absent: accessory muscle use, rales, rhonchi, wheezes Additional comments: Normal WOB - Cardiovascular Cardiovascular exam: Present: RRR, +S1, +S2. Absent: diastolic murmur, gallop, rubs, systolic murmur Additional comments: No BLE edema - GI/Abdominal GI/Abdominal exam: Present: normal bowel sounds, soft. Absent: distended, hepatomegaly, mass, splenomegaly, tenderness - Psychiatric Psychiatric exam: Present: normal affect, normal mood. Absent: agitated, anxious, depressed - Skin Skin exam: Present: dry, intact, warm. Absent: cyanosis, rash - Patient Status Disposition: Home, Self-Care Condition: Good Functional capacity at discharge: uses cane/walker Overall status at discharge: patient is back to baseline - Discharge Instructions Instructions: Syncope (DC), Hypotension (DC) Follow Up With: Raven Rhodes DO [Primary Care Provider] - Additional Instructions: Follow up with PCP in 2-3 days after discharge. Recheck BMP (CKD) at that time. Recheck BP at that time (labile hypertension). Hydralazine was discontinued during this hospitalization. Nifedipine dose was decreased during this hospitalization. Please adjust blood pressure medications as necessary to maintain systolic BP < 150 without syncope/dizziness. Follow up with nephrology as directed. Referred to outpatient PT/OT. - Diet and Activity Activity: as per physical therapy Diet: diabetic diet, low fat, low cholesterol, low salt diet, other (Cardiac Diet, Renal Diet)
== END 2017-07-10 16:00 | disposition home or self-care (01) ==
LOC: 2ANU 09:10 → EMEROO 09:10 → 2ANU 12:18
PROVIDERS: ADMIT Hospitalist; ATTEND Hospitalist

== ENCOUNTER 2018-07-19 16:45 | Inpatient (IN) ==
[2018-07-19] MEDS ORDERED: Isovue-370 500 ML BOTTLE IVP ONE (17:06)
[2018-07-19] MEDS ORDERED: 0.9 % Sodium Chloride 1,000 ML IVC ONE (17:07)
--- NOTE | 2018-07-19 17:07 | Emergency Department Note ---
Disposition Clinical Impression: Hyperkalemia Cerebrovascular accident Qualifiers: CVA mechanism: unspecified Qualified Code(s): I63.9 - Cerebral infarction, unspecified [id number] kidney injury Qualifiers: Acute renal failure type: unspecified Chronic kidney disease stage: stage 3 (mami rincon) Qualified Code(s): N17.9 - Acute kidney failure, unspecified Disposition: Admitted As Inpatient Condition: Undetermined Time of Disposition: 22:27 General Adult HPI - General Stated complaint: weakness, Lt arm numbness Time Seen by Provider: 07/19/18 16:55 - Related Data Home Medications Medication Instructions Recorded Confirmed Antiox#10/Om3/Dha/Epa/Lut/Zeax 1 cap PO DAILY 07/08/17 07/19/18 [I-Caps with Lutein-[place] 3 Sfg] Aspirin [Lo-Dose Aspirin EC] 81 mg PO HS 07/08/17 07/19/18 Atorvastatin [Lipitor] 40 mg PO HS 07/08/17 07/19/18 Cholecalciferol (D-3) [Vitamin D] 5,000 unit PO DAILY 07/08/17 07/19/18 Clopidogrel [Plavix] 75 mg PO HS 07/08/17 07/19/18 Furosemide [Lasix] 20 mg PO DAILY 07/08/17 07/19/18 Gabapentin [Neurontin] 300 mg PO HS 07/08/17 07/19/18 Losartan Potassium [Cozaar] 50 mg PO DAILY 07/08/17 07/19/18 Ranitidine HCl [Acid Financial Analyst] 150 mg PO BID 07/08/17 07/19/18 Carvedilol 12.5 mg PO BID 07/19/18 07/19/18 Dutasteride 0.5 mg PO HS 07/19/18 07/19/18 Insulin Aspart Prot/Insuln Asp 30 - 60 unit SQ BID 07/19/18 07/19/18 [Novolog Mix 70-30 Vial] Magnesium Oxide [Magnesium] 400 mg PO BID 07/19/18 07/19/18 Spironolactone 50 mg PO BID 07/19/18 07/19/18 Previous Rx's Medication Instructions Recorded NIFEdipine XL (24 HR) [Procardia 30 mg PO DAILY 7 Days #7 tablet.er 07/10/17 XL] Allergies Allergy/AdvReac Type Severity Reaction Status Date / Time clonidine AdvReac Nausea Verified 08/24/17 16:47 enalaprilat [From Vasotec] AdvReac Nausea Verified 08/24/17 16:47 fentanyl AdvReac Nausea Verified 08/24/17 16:47 lisinopril AdvReac Nausea Verified 08/24/17 16:47 naproxen AdvReac Nausea Verified 08/24/17 16:47 simvastatin AdvReac Nausea Verified 08/24/17 16:47 tramadol AdvReac Nausea Verified 08/24/17 16:47 Past Medical History - Past Medical History Medical history: Reports: non-contributory Surgical history: Reports: orthopedic, other, other Psychiatric history: Reports: anxiety, depression - Social History Smoking Status: Never smoker Smokeless Tobacco Status: No Alcohol use: Reports: none Drug use: Reports: none Course Vital Signs Temperature 98.9 F 07/19/18 16:59 Pulse Rate 60 07/19/18 16:59 Respiratory Rate 18 07/19/18 16:59 Blood Pressure 146/65 07/19/18 16:59 O2 Sat by Pulse Oximetry 97 07/19/18 16:59 Temperature 98.9 F 07/19/18 16:59 Pulse Rate 60 07/19/18 22:08 Respiratory Rate 16 07/19/18 22:08 Blood Pressure 127/61 07/19/18 22:08 O2 Sat by Pulse Oximetry 98 07/19/18 22:08 Oxygen Delivery Oxygen Delivery Room Air Medical Decision Making - Lab Data Result diagrams: 07/19/18 17:10 07/19/18 17:10 Lab Results 07/19/18 07/19/18 07/19/18 Range/Units 17:10 17:10 17:10 WBC 7.5 (4.3-11.1) K/mcL RBC 3.90 L (4.19-5.50) M/mcL Hgb 12.2 L (12.9-16.9) g/dL Hct 36.6 L (37.5-50.1) % MCV 93.8 (83.0-100.0) fL MCH 31.3 (28.0-33.3) pg MCHC 33.3 (31.6-35.5) g/dL RDW 12.8 (11.5-14.5) % Plt Count 224 (140-400) K/mcL MPV 9.4 (9.4-12.4) fL PT 11.6 (9.4-12.1) Seconds INR 1.0 APTT 26.6 (26.0-36.0) Seconds Sodium 134 L (136-145) mEq/L Potassium 5.5 H (3.5-5.1) mEq/L Chloride 107 (98-107) mEq/L Carbon Dioxide 20 L (23-29) mEq/L BUN 58 H (8-23) mg/dL Creatinine 2.62 H (0.70-1.30) mg/dL Est GFR ( Amer) 29 L (> 60) Est GFR (Non-Af Amer) 24 L (> 60) BUN/Creatinine Ratio 22 (6-26) Glucose 253 H (70-105) mg/dL Calculated Osmolality 303 H (280-300) Calcium 8.6 (8.6-10.3) mg/dL Troponin I < 0.03 (< 0.04) ng/mL Attestation Statement - Attestation Attestation: I reviewed the residents documentation and agree with the residents assessment and plan of care. I have personally had face to face time with the patient. (Brief History, Brief Exam, and MDM) I personally supervised and was present for the tsai/critical portions of the following procedures completed by the resident: (add procedures performed here). [id number] time provided Patient arrives with neurologic symptoms including dysarthria and left upper extremity weakness that started 2 hours prior to arrival. Please see the resident physician's NIH stroke scale for detailed neurologic exam. Stroke alert activated. I attest to supervising the resident physician's interpretation of the ECG
--- NOTE | 2018-07-19 17:10 | Emergency Department Note ---
Disposition Clinical Impression: Hyperkalemia Cerebrovascular accident Qualifiers: CVA mechanism: unspecified Qualified Code(s): I63.9 - Cerebral infarction, unspecified [id number] kidney injury Qualifiers: Acute renal failure type: unspecified Chronic kidney disease stage: stage 3 (mami rincon) Qualified Code(s): N17.9 - Acute kidney failure, unspecified Disposition: Admitted As Inpatient Condition: Undetermined Referrals: Raven Rhodes DO [Primary Care Provider] - Forms: ED Satisfaction Letter Time of Disposition: 18:48 Neuro HPI - General Chief Complaint: ED Neuro Symptoms/Deficit Stated Complaint: weakness, Lt arm numbness Time Seen by Provider: 07/19/18 16:55 Source: patient, family Mode of arrival: wheelchair Limitations: no limitations Nursing Notes Reviewed: Yes Vital Signs Reviewed: Yes - History of Present Illness HPI Narrative: 78-year-old male with last known well, history of hypertension, hyperlipidemia, stage III kidney disease arrives to the emergency department with complaint of bilateral lower extremity weakness, paresthesias on the left upper extremity, slurring of his words and some expressive aphasia. Last known well 3 PM. This was 2 hours prior to presentation. Patient denies any chest pain, difficulty b reathing other than this weakness. He is also describing dizziness on evaluation in the room. - Related Data Home Medications: Home Medications Medication Instructions Recorded Confirmed Antiox#10/Om3/Dha/Epa/Lut/Zeax 1 cap PO DAILY 07/08/17 08/24/17 [I-Caps with Lutein-[place] 3 Sfg] Aspirin [Lo-Dose Aspirin EC] 81 mg PO HS 07/08/17 08/24/17 Atorvastatin [Lipitor] 40 mg PO HS 07/08/17 08/24/17 Carvedilol [Coreg] 25 mg PO BID 07/08/17 08/24/17 Cholecalciferol (D-3) [Vitamin D] 5,000 unit PO DAILY 07/08/17 08/24/17 Clopidogrel [Plavix] 75 mg PO HS 07/08/17 08/24/17 Dutasteride 0.5 mg PO HS 07/08/17 08/24/17 Furosemide [Lasix] 20 mg PO DAILY 07/08/17 08/24/17 Gabapentin [Neurontin] 300 mg PO HS 07/08/17 08/24/17 Insulin ASPART [NovoLOG] 15 - 18 unit SQ TIDWM 07/08/17 08/24/17 Insulin Glargine [Lantus] 35 unit SQ BID 07/08/17 08/24/17 Losartan Potassium [Cozaar] 50 mg PO DAILY 07/08/17 08/24/17 Magnesium Oxide [Magnesium] 400 mg PO BID 07/08/17 08/24/17 Ranitidine HCl [Acid Nuclear Medical Tech] 150 mg PO BID 07/08/17 08/24/17 Spironolactone [Aldactone] 25 mg PO BID 07/08/17 08/24/17 Previous Rx's Medication Instructions Recorded NIFEdipine XL (24 HR) [Procardia 30 mg PO DAILY 7 Days #7 tab.er.24 07/10/17 XL] NIFEdipine XL (24 HR) [Procardia 30 mg PO DAILY 7 Days #7 tablet.er 07/10/17 XL] cephALEXin [Cephalexin] 250 mg PO TID #21 tablet 08/24/17 Allergies/Adverse Reactions: Allergies Allergy/AdvReac Type Severity Reaction Status Date / Time clonidine AdvReac Nausea Verified 08/24/17 16:47 enalaprilat [From Vasotec] AdvReac Nausea Verified 08/24/17 16:47 fentanyl AdvReac Nausea Verified 08/24/17 16:47 lisinopril AdvReac Nausea Verified 08/24/17 16:47 naproxen AdvReac Nausea Verified 08/24/17 16:47 simvastatin AdvReac Nausea Verified 08/24/17 16:47 tramadol AdvReac Nausea Verified 08/24/17 16:47 All systems ED: reviewed and negative except as stated. Constitutional: Reports: weakness. Denies: fever, chills ENT ED: Denies: dysphagia Cardiovascular: Denies: chest pain Respiratory: Denies: dyspnea Gastrointestinal: Denies: abdominal pain, nausea, vomiting Genitourinary: Denies: urgency Musculoskeletal: Denies: back pain Integumentary: Denies: rash Neurological: Reports: weakness, numbness, paresthesias, vertigo. Denies: headache, confusion Past Medical History - Past Medical History Attestation: Yes The following information was validated with the patient. Source: patient, old records reviewed Medical history: Reports: hyperlipidemia, hypertension, renal disease Surgical history: Reports: orthopedic, other, other Psychiatric history: Reports: anxiety, depression - Social History Smoking Status: Never smoker Smokeless Tobacco Status: No Alcohol use: Reports: none Drug use: Reports: none Physical Exam - General Limitations: no limitations General appearance: alert, in no apparent distress - Head Head exam: atraumatic, normocephalic, normal inspection - Eye Eye exam: Present: normal appearance, PERRL, EOMI - ENT ENT exam: normal exam, normal oropharynx, mucous membranes moist - Neck Neck exam: Present: normal inspection, full ROM, trachea midline - Chest Chest inspection: Present: normal inspection, symmetric chest wall rise - Respiratory Respiratory exam: Present: normal lung sounds bilaterally - Cardiovascular Cardiovascular exam: Present: regular rate, normal rhythm, normal heart sounds - Abdominal Exam Abdominal exam: Present: soft, Non-Tender. Absent: tenderness, distention, guarding, rebound, rigidity - Extremities Exam Extremities exam: Present: normal inspection, full ROM, normal capillary refill. Absent: tenderness, pedal edema - Neurological Exam Neurological exam: Present: alert, oriented X3, CN II-XII intact - Expanded Neurological Exam Patient oriented to: Present: person, place, time Speech: Present: expressive aphasia Cranial nerves: EOM function (II, III, IV, ): Normal, facial sensation (V): Normal, facial palsy (VII): Normal Cerebellar function: finger to nose: Normal Motor strength - LUE: 4/5 Motor strength - RUE: 4/5 Motor strength - LLE: 3/5 Motor strength - RLE: 3/5 Sensory exam upper extremity: light touch: Abnormal Left Sensory exam lower extremity: light touch: Normal Coma Scale Eye Opening: Spontaneous Coma Scale Motor Response: Obeys Commands Coma Scale Verbal Response: Oriented Coma Scale Total: 15 - Skin Skin exam: Present: warm, dry, intact, normal color Course - Reevaluation(s) Reevaluation #1: I spoke with Dr. Duff who felt that the patient is not a tPa candidate. He stated to continue with CTA and admit patient if unremarkable. Patient will be given aspirin. We had a discussion regarding patient's CTA and kidney function. Using shared decision making, we agreed that it was worth the risk for the CTA. CTA and head CT noncontrast negative. The patient will be admitted to the hospital at this time and the administered aspirin. No further questions or concerns noted. The patient does have an acute kidney injury with an elevated potassium of 5.5. The patient was given a liter of IV fluids here in the ED. Troponin and EKG are unremarkable. Patient family made aware plan. No further questions or concerns. Time: 18:23 Vital Signs Temperature 98.9 F 07/19/18 16:59 Pulse Rate 60 07/19/18 16:59 Respiratory Rate 18 07/19/18 16:59 Blood Pressure 146/65 07/19/18 16:59 O2 Sat by Pulse Oximetry 97 07/19/18 16:59 Temperature 98.9 F 07/19/18 16:59 Pulse Rate 64 07/19/18 17:47 Respiratory Rate 18 07/19/18 17:47 Blood Pressure 133/64 07/19/18 17:47 O2 Sat by Pulse Oximetry 98 07/19/18 17:47 Oxygen Delivery Oxygen Delivery Room Air Neuro Symptoms/Deficit - MDM Narrative Medical decision making narrative: Accepted by Dr. Rodriguez. - Medical Records Medical records reviewed: Yes I reviewed the patient's medical records. - Lab Data Lab results reviewed: Yes I reviewed the patient's lab results. Result diagrams: 07/19/18 17:10 07/19/18 17:10 Lab Results 07/19/18 07/19/18 07/19/18 Range/Units 17:10 17:10 17:10 WBC 7.5 (4.3-11.1) K/mcL RBC 3.90 L (4.19-5.50) M/mcL Hgb 12.2 L (12.9-16.9) g/dL Hct 36.6 L (37.5-50.1) % MCV 93.8 (83.0-100.0) fL MCH 31.3 (28.0-33.3) pg MCHC 33.3 (31.6-35.5) g/dL RDW 12.8 (11.5-14.5) % Plt Count 224 (140-400) K/mcL MPV 9.4 (9.4-12.4) fL PT 11.6 (9.4-12.1) Seconds INR 1.0 APTT 26.6 (26.0-36.0) Seconds Sodium 134 L (136-145) mEq/L Potassium 5.5 H (3.5-5.1) mEq/L Chloride 107 (98-107) mEq/L Carbon Dioxide 20 L (23-29) mEq/L BUN 58 H (8-23) mg/dL Creatinine 2.62 H (0.70-1.30) mg/dL Est GFR ( Amer) 29 L (> 60) Est GFR (Non-Af Amer) 24 L (> 60) BUN/Creatinine Ratio 22 (6-26) Glucose 253 H (70-105) mg/dL Calculated Osmolality 303 H (280-300) Calcium 8.6 (8.6-10.3) mg/dL Troponin I < 0.03 (< 0.04) ng/mL - Radiology Data Radiology results reviewed: Yes I reviewed the patient's radiology results. Chest X-Ray 07/19/18 17:06 IMPRESSION: Stable portable study. D/ / Dyana Andrade Cha, MD / Dyana Andrade Cha, MD Interpreting Provider: Dyana Andrade Cha, MD Head CT 07/19/18 17:06 IMPRESSION: No acute intracranial abnormality. Mild generalized atrophy and chronic ischemic changes as above. 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 Paranasal sinuses and mastoids are otherwise clear. D/ / Stephen Pisano MD / Stephen Pisano MD Interpreting Provider: Stephen Pisano MD Head CTA 07/19/18 17:06 IMPRESSION: Unremarkable CTA of the head and neck. D/ / 07/19/2018 17:49:03 Parviz Bonilla MD / sari Interpreting Provider: Parviz Bonilla MD Neck CTA 07/19/18 17:07 IMPRESSION: Unremarkable CTA of the head and neck. D/ / 07/19/2018 17:49:03 Parviz Bonilla MD / sari Interpreting Provider: Parviz Bonilla MD - EKG Data EKG attestation: Yes I reviewed and interpreted this EKG. EKG results narrative: Heart rate 61 beats for minute. Normal sinus rhythm. No ST elevation or ST depression noted. No acute changes NIH Stroke Scale - Level of Consciousness LOC: Alert - LOC Questions LOC Questions: Answers both correctly - LOC Commands LOC Commands: Performs both correctly - Best Gaze Best Gaze: Normal - Visual Visual: No visual loss - Facial Palsy Facial Palsy: Normal - Motor Arms Motor Arm-Left: No drift for 10 seconds Motor Arm-Right: No drift for 10 seconds - Motor Legs Motor Leg-Left: Drift, does NOT hit bed Motor Leg-Right: Drift, does NOT hit bed - Limb Ataxia Limb Ataxia: Normal, No Ataxia - Sensory Sensory: Mild to moderate loss, "not as sharp" - Best Language Best Language: No aphasia - Dysarthria Dysarthria: Mild, slurs some words - Extinction and Inattention Extinction and Inattention: Normal - NIHSS Total Score NIHSS Total Score: 4 TPA Checklist - LKW: 3-4.5 hrs Add. Warnings/Precautions Patient/family understanding: The patient/family members have been counseled and understood the risk, benefit, and alternatives of treatment.
[2018-07-19 17:30] LABS: Hematocrit 36.6 % (37.5-50.1); Hemoglobin 12.2 g/dL (12.9-16.9); Mean Corpuscular HGB Conc 33.3 g/dL (31.6-35.5); Mean Corpuscular Hemoglobin 31.3 pg (28.0-33.3); Mean Corpuscular Volume 93.8 fL (83.0-100.0); Mean Platelet Volume 9.4 fL (9.4-12.4); Platelet Count 224 K/mcL (140-400); Red Cell Distribution Width 12.8 % (11.5-14.5)
[2018-07-19 17:37] LABS: Prothrombin Time 11.6 Seconds (9.4-12.1)
[2018-07-19 17:40] LABS: Activated Partial Thrombo Time 26.6 Seconds (26.0-36.0)
[2018-07-19 17:47] LABS: BUN/Creatinine Ratio 22 (6-26); Blood Urea Nitrogen 58 mg/dL (8-23); Calcium 8.6 mg/dL (8.6-10.3); Carbon Dioxide 20 mEq/L (23-29); Chloride 107 mEq/L (98-107); Glucose 253 mg/dL (70-105); Osmolality,Calculated 303 (280-300); Potassium 5.5 mEq/L (3.5-5.1); Sodium 134 mEq/L (136-145); eGFR For Non-African Americans 24 (> 60)
[2018-07-19 17:48] LABS: Troponin I < 0.03 ng/mL (< 0.04)
[2018-07-19] MEDS ORDERED: Aspirin 325 MG TABLET PO ONE (18:16)
[2018-07-19] MEDS ORDERED: *HR* Dextrose 50 % in Water (Syg) 50 ML SYRINGE IVP PRN (20:31)
[2018-07-19] MEDS ORDERED: Dextrose Gel 15 GM/37.5 ML TUBE PO PRN ×2 (20:31)
[2018-07-19] MEDS ORDERED: D5% in Water 1,000 ML IVC PRN (20:31)
--- NOTE | 2018-07-19 20:42 | Internal Med History&Physical ---
Date of Encounter: 07/19/18 Time of Encounter: 20:35 Internal Medicine - H&P: HPI Chief complaint: Strokelike symptoms History of present illness: Mr. Mesa is a 78 year old male with a past medical history of hypertension, hyperlipidemia, stage III kidney disease and diabetes who presented to the ED with complaints of bilateral lower extremity weakness, paresthesias a left upper extremity and slurred speech. Patient states that around noon today shortly after having lunch he felt extremely weak in his lower extremities from the hip down towards. He stated he had difficulty standing and ambulating to his car. The patient drove himself home and upon arrival required a family member to help him into the house. Denies any numbness or paresthesias of the lower extremities. No reports of loss of bowel or bladder control. He also expressed numbness in his left arm which she states he has at baseline but was worse than usual. He checked his blood sugar at home which was around 250. Patient subsequently presented to the ED 5 hours after symptom onset. ED documentation reports slurred speech and expressive aphasia to which the patient states he may have had. Family members in the room also noted some difficulty with his speech. Patient denies any prior history of stroke. He does report a recent 3- 4 day bout of loose stools which has since resolved. No recent use of antibiotics. No reports of fever, chills, worsening cough, chest pain, palpit ations, shortness of breath, nausea, vomiting or diarrhea at present. Stroke alert was called shortly after arrival and per her neurologist, did not feel he was a TPA candidate. Initial vitals otherwise on arrival were stable. CTA of the head and neck were unremarkable. Laboratory workup was notable for a mild hyperkalemia 5.5 and a creatinine of 2.6 to which is slightly elevated but near baseline in the setting of his CKD. Patient received 1 L fluid bolus in the ED in addition to a loading dose of aspirin. My assessment patient was alert oriented 3. No obvious focal deficits on examination. No evidence of slurred speech. Does report continued numbness in the left extremity. Needed for TIA/CVA workup. Past Med Surg Social Fam HX - Past Medical History Medical history: hyperlipidemia, hypertension, renal disease Additional medical history: stage 3 kidney disease Psychiatric history: anxiety, depression - Past Surgical History Surgical History: orthopedic, other, other Additional surgical history: B/L Shoulder,. cervical disc - Social History Smoking Status: Never smoker Smokeless Tobacco Status: No Alcohol use: none Drug use: none - Family History Mother Family Member Ethnicity: Non- Living Status: Hx Family Cardiac Disorders: Yes (HEART PROBLEMS) Hx Family Respiratory Disorders: No Hx Family Cancer: No Hx Family GI Disorders: No Hx Family Endocrine Disorder: Yes (DM) Hx Family Neuromuscular Disorders: No Hx Family Neurologic Disorders: No Hx Family HEENT Disorders: No Hx Family Autoimmune Disorders: No Internal Medicine - H&P: Meds Antiox#10/Om3/Dha/Epa/Lut/Zeax [I-Caps with Lutein-[place] 3 Sfg] 1 cap PO DAILY 07/08/17 [History] Aspirin [Lo-Dose Aspirin EC] 81 mg PO HS 07/08/17 [History] Atorvastatin [Lipitor] 40 mg PO HS 07/08/17 [History] Cholecalciferol (D-3) [Vitamin D] 5,000 unit PO DAILY 07/08/17 [History] Clopidogrel [Plavix] 75 mg PO HS 07/08/17 [History] Furosemide [Lasix] 20 mg PO DAILY 07/08/17 [History] Gabapentin [Neurontin] 300 mg PO HS 07/08/17 [History] Losartan Potassium [Cozaar] 50 mg PO DAILY 07/08/17 [History] Ranitidine HCl [Acid Investigations Consultant] 150 mg PO BID 07/08/17 [History] NIFEdipine XL (24 HR) [Procardia XL] 30 mg PO DAILY 7 Days #7 tablet.er 07/10/17 [Rx] Carvedilol 12.5 mg PO BID 07/19/18 [History] Dutasteride 0.5 mg PO HS 07/19/18 [History] Insulin Aspart Prot/Insuln Asp [Novolog Mix 70-30 Vial] 30 - 60 unit SQ BID 07/19/18 [History] Magnesium Oxide [Magnesium] 400 mg PO BID 07/19/18 [History] Spironolactone 50 mg PO BID 07/19/18 [History] Allergy/AdvReac Type Severity Reaction Status Date / Time clonidine AdvReac Nausea Verified 08/24/17 16:47 enalaprilat [From Vasotec] AdvReac Nausea Verified 08/24/17 16:47 fentanyl AdvReac Nausea Verified 08/24/17 16:47 lisinopril AdvReac Nausea Verified 08/24/17 16:47 naproxen AdvReac Nausea Verified 08/24/17 16:47 simvastatin AdvReac Nausea Verified 08/24/17 16:47 tramadol AdvReac Nausea Verified 08/24/17 16:47 All Systems PM: A 10-system review of systems was performed and is negative for pertinent findings except as documented above in the HPI. - Constitutional Constitutional: no chills, no fever(s), no night sweats - EENT Eyes: no change in vision, no discharge, no pain, no photophobia Ears: no ear discharge, no ear pain, no tinnitus Nose, mouth and throat: no dysphagia, no nasal discharge, no neck pain, no sore throat - Cardiovascular Cardiovascular ROS IM: no chest pain, no diaphoresis, no dyspnea, no lightheadedness, no palpitations, no syncope - Respiratory Respiratory: no cough, no dyspnea, no wheezing, no excessive phlegm production - Gastrointestinal Gastrointestinal: no abdominal pain, no diarrhea, no hematemesis, no hematochezia, no melena, no nausea, no vomiting - Musculoskeletal Musculoskeletal ROS IM: no numbness, no tingling - Integumentary Integumentary IM: no rash, no unusual bruising - Neurological Neurological ROS: no confusion, no convulsions, no focal weakness, no numbness, no tingling, no tremor(s) - Hematologic/Lymphatic Hematologic/Lymphatic: no easy bruising - Constitutional Vitals: Temp Pulse Resp BP Pulse Ox 98.9 F 66 18 151/72 98 07/19/18 16:59 07/19/18 20:15 07/19/18 20:15 07/19/18 20:15 07/19/18 20:15 Exam: General: Alert and oriented 3 Skin:Normal color, no rash, no lesions. HEENT:EOM, pupils equal, round and reactive. Cardiovascular:Normal S1 & S2, no rubs, murmurs or gallops. No JVD. Pulse regular. Lungs: Basilar crackles on the left posterior thorax. Remainder of lungs were clear Abdomen:Soft, non-tender, no rigidity. Extremities:No deformity, no edema or tenderness, no joint swelling or clubbing. Neurological:Normal cognition; cranial nerves II through XII intact. No p ronator drift. No evidence of dysmetria. Bilateral upper and lower extremities strength 4 out of 5. Sensation intact throughout. Pulses:Carotid and radial pulses normal +2. Rest of the physical exam is non contributory Internal Med - H&P Results - Labs CBC & Chem 7: 07/19/18 17:10 07/19/18 21:59 Labs: Short CBC 07/19/18 Range/Units 17:10 WBC 7.5 (4.3-11.1) K/mcL Hgb 12.2 L (12.9-16.9) g/dL Hct 36.6 L (37.5-50.1) % Plt Count 224 (140-400) K/mcL BMP 07/19/18 17:10 Sodium 134 L Potassium 5.5 H Chloride 107 Carbon Dioxide 20 L BUN 58 H Creatinine 2.62 H Glucose 253 H Calcium 8.6 Cardiac Enzymes 07/19/18 Range/Units 17:10 Troponin I < 0.03 (< 0.04) ng/mL - Impressions ITS Impressions Chest X-Ray 07/19/18 17:06 IMPRESSION: Stable portable study. D/ / Dyana Andrade Cha, MD / Dyana Andrade Cha, MD Interpreting Provider: Dyana Andrade Cha, MD Head CT 07/19/18 17:06 IMPRESSION: No acute intracranial abnormality. Mild generalized atrophy and chronic ischemic changes as above. 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 Paranasal sinuses and mastoids are otherwise clear. D/ / Stephen Pisano MD / Stephen Pisano MD Interpreting Provider: Stephen Pisano MD Head CTA 07/19/18 17:06 IMPRESSION: Unremarkable CTA of the head and neck. D/ / 07/19/2018 17:49:03 Parviz Boinlla MD / sari Interpreting Provider: Parviz Bonilla MD Neck CTA 07/19/18 17:07 IMPRESSION: Unremarkable CTA of the head and neck. D/ / 07/19/2018 17:49:03 Parviz Bonilla MD / sari Interpreting Provider: Parviz Bonilla MD - Assessment and Plan (1) Stroke-like symptoms Current Visit: Yes Status: Acute Assessment and plan: 78-year-old male presenting with stroke-like symptoms including expressive aphasia, left upper extremity paresthesias and bilateral lower extremity weakness concerning for TIA/CVA. Patient has risk factors including hypertension, diabetes and stage III chronic kidney disease. His bilateral lower extremity weakness would appear to be inconsistent with stroke-like symptoms, however, given the remainder of his symptoms cannot rule out stroke/TIA at this time. Aside from his left upper extremity paresthesias which at baseline is chronic, remainder of his neurologic exam appears to be normal. He does have weakness in his lower extremities 4 out of 5 on my assessment bilaterally. Does report a 3 to 4-day bout of loose stools this past weekend which he states has resolved which may be contributing to his mildly Lenore on chronic kidney injury and possibly his weakness. Guillain-Ruston syndrome can be considered but would be on the differential at this point. We will continue workup for stroke/TIA. Patient received loading dose of aspirin in the ED -Frequent neurologic checks/telemetry -We will allow permissive hypertension -Echocardiogram/carotid duplex -We will obtain MRI without contrast in the morning -Neurology consult (2) [id number] kidney injury Current Visit: Yes Status: Acute Assessment and plan: Acute on chronic kidney injury. History of CKD stage III followed by Dr. May. Patient's baseline creatinine appears to be near 2.2. Creatinine on arrival was 2.62. Possibly prerenal in the setting of recent bout of loose diarrhea. Patient received 1 L fluid bolus in the ED. We will reassess basic metabolic panel. Patient is voiding. We will continue to monitor. Qualifiers: Acute renal failure type: unspecified Chronic kidney disease stage: stage 3 (moderate) Qualified Code(s): N17.9 - Acute kidney failure, unspecified; N18.3 - Chronic kidney disease, stage 3 (moderate) (3) Type 2 diabetes mellitus Current Visit: Yes Status: Acute Assessment and plan: We will place patient on sliding scale insulin with blood glucose checks. Diabetic diet once passes speech and swallow eval. Qualifiers: Qualified Code(s): E11.9 - Type 2 diabetes mellitus without complications (4) Hyperkalemia Current Visit: Yes Status: Acute Assessment and plan: Mild hyperkalemia with a potassium of 5.5. Patient currently on an MARCO inhi bitor and Spironolactone. Patient received 1 L fluid bolus in the ED. Will hold MARCO inhibitor and Spironolactone additionally for permissive hypertension and reassess potassium at midnight. (5) CAD (coronary artery disease) Current Visit: No Status: Chronic Assessment and plan: History of coronary artery disease status post stents. Continue aspirin and beta edwardo, clopidogrel. Qualifiers: Coronary Disease-Associated Artery/Lesion type: unga artery [place] vs. transplanted heart: unga heart Associated angina: without angina Qualified Code(s): I25.10 - Atherosclerotic heart disease of unga coronary artery without angina pectoris (6) CKD (chronic kidney disease) Current Visit: No Status: Chronic Assessment and plan: History of chronic kidney disease stage III followed by Dr. May. We will hold MARCO inhibitor and potassium sparing diuretic for now given mild acute kidney injury likely prerenal. Qualifiers: Chronic kidney disease stage: stage 3 (moderate) Qualified Code(s): N18.3 - Chronic kidney disease, stage 3 (moderate) (7) DVT prophylaxis Current Visit: No Status: Acute Assessment and plan: Pneumatic compression devices. Patient currently on dual antiplatelet therapy. - Time Spent With Patient Total time spent is greater than 50% in coordination of care (as documented) at patient's floor/unit and/or counseling patient:
[2018-07-19] MEDS: Famotidine 20 MG TABLET PO SCH (22:34)
[2018-07-19] MEDS: Finasteride 5 MG TABLET PO SCH (22:34)
[2018-07-19] MEDS: Aspirin Enteric Coated 81 MG Tablet PO SCH (22:34)
[2018-07-19] MEDS: Gabapentin 300 MG CAPSULE PO SCH (22:34)
[2018-07-19] MEDS: Magnesium Oxide 400 MG TABLET PO SCH (22:35)
[2018-07-19] MEDS: Insulin DETEMIR 100 UNIT/ML X5UNITS SQ SCH (22:35)
[2018-07-19 22:46] LABS: Calcium 8.5 mg/dL (8.6-10.3); Potassium 5.4 mEq/L (3.5-5.1)
[2018-07-19] MEDS: Insulin LISPRO 300 UNITS/3 ML VIAL SQ SCH (23:53)
[2018-07-20 06:16] LABS: Prothrombin Time 11.5 Seconds (9.4-12.1)
[2018-07-20 06:32] LABS: Alanine Aminotransferase 15 Units/L (7-52); Albumin 3.7 g/dL (3.5-5.7); Albumin/Globulin Ratio 1.7 (1.1-2.2); Alkaline Phosphatase 44 Units/L (34-104); Aspartate Amino Transferase 12 Units/L (13-39); BUN/Creatinine Ratio 20 (6-26); Bilirubin,Total 0.4 mg/dL (0.3-1.0); Blood Urea Nitrogen 50 mg/dL (8-23); Calcium 8.9 mg/dL (8.6-10.3); Carbon Dioxide 20 mEq/L (23-29); Chloride 107 mEq/L (98-107); Chol/HDL Ratio 3.4 (0-4.9); Cholesterol 106 mg/dL (< 200); Globulin 2.2 g/dL (2.4-3.5); Glucose 227 mg/dL (70-105); HDL Cholesterol 31 mg/dL (40-59); LDL Cholesterol,Calculated 35 mg/dL (0-99); Osmolality,Calculated 304 (280-300); Potassium 5.5 mEq/L (3.5-5.1); Sodium 137 mEq/L (136-145); Total Protein 5.9 g/dL (6.4-8.9); Triglycerides 202 mg/dL (< 150); Troponin I < 0.03 ng/mL (< 0.04); eGFR For Non-African Americans 25 (> 60)
[2018-07-20 06:54] LABS: Estimated Average Glucose 192 mg/dl; Hemoglobin A1C 8.3 %
[2018-07-20] MEDS: Famotidine 20 MG TABLET PO SCH ×2 (08:43→20:21)
[2018-07-20] MEDS: Magnesium Oxide 400 MG TABLET PO SCH ×2 (08:43→20:21)
[2018-07-20] MEDS: Furosemide 20 MG TABLET PO SCH (08:43)
[2018-07-20] MEDS: Cholecalciferol (D-3) 1,000 UNIT TABLET PO SCH (08:43)
[2018-07-20] MEDS: Insulin LISPRO 300 UNITS/3 ML VIAL SQ SCH ×3 (08:43→17:12)
[2018-07-20] MEDS: Multivit/Ca/Min/Fe/FA 1 TAB TABLET PO SCH (08:43)
--- NOTE | 2018-07-20 10:54 | Neurology - Consult Note ---
<Gabriel Gutierrez J - Last Filed: 07/20/18 15:22> Date of Encounter: 07/20/18 Time of Encounter: 10:47 Assessment and Plan (1) Stroke-like symptoms Current Visit: Yes Status: Acute Neurology consulted to evaluate for cause of diffuse gross motor weakness Patient reports ambulatory dysfunction and gross weakness of bilateral legs which began yesterday, now progressing to bilateral upper extremities Known history of cervical and lumbar radiculopathy CT of head and ED negative for acute abnormality, CTA head and neck unremarkable as well CBC and chemistry panel without acute findings Recent 3 day history of diarrhea last week. Patient reporting leg weakness began shortly thereafter have been getting progressively worse. This is what pr ompted evaluation in the ED Diffuse gross motor weakness seen on exam today without lateralizin pres entation. This has progressed into the bilateral arms overnight. Additionally, he is areflexic. Areflexia would not be expected with a known L5-S1 broad base disc bulge and prior L4-5 and L5-S1 surgery and moderate cervical spinal canal stenosis. One would think he would have hyperreflexia instead. These findings are trouble laying and certainly places the diagnosis of GBS within my different ial. At this time we will attempt to obtain a lumbar puncture and CSF for analysis. If protein returns elevated patient would require treatment of GBS. Nonetheless, given presentation we will also continue to rule out an acute neurovascular event. MRI, carotid duplex and echocardiogram are all pending. At this time we will evaluate B12 and TSH as well. Continue with frequent neurological assessments per stroke protocol. Continue to closely monitor patient's neuro status. History of Present Illness Chief complaint: Bilateral leg weakness, left arm weakness and paresthesias HPI: Mr. Mesa is a 78 year old male with a PMH of HLD, HTN, CKD 3, anxiety and depression. At baseline the patient is independent, functional and ambulatory. He presented to [facility] ED with complaints of ambulatory dysfunction. He reports that he was at [employer] yesterday afternoon. At around noon he got up to add to his car and noticed that he had bilateral leg weakness. He reports that he was barely able to make it to his car. He drove himself home and was unable to get out of the car. He states that his son had to basically carry him in the house. On presentation to the ED continued to complain of bilateral lower extremity weakness and reports that the weakness and also now extended up into the left arm and he was also having paresthesias. Son at bedside and notes some mild speech slurring prior to arrival to the ED but notes that the slurred speech had resolved while in the ED. He denies experiencing any blurred vision during this event but admits to dizziness and headaches. Further, he denies chest pain, shortness of breath, palpitations. Of note he mentions that last week he had a 3 day bout of diarrhea with a couple of episodes daily. He states that the bilateral leg weakness started with the diarrhea but has been getting progressively worse up until yesterday 07/20/18. CT imaging obtained in the ED negative for acute intracranial abnormality. There is mild generalized atrophy with chronic ischemic changes. CTA of the head and neck are unremarkable. Evidence of CKD 4 on chemistry panel which is around patient's baseline. Neuro will continue to evaluate for cause of gross weakness Past Med Surg Social Fam HX - Past Medical History Medical history: hyperlipidemia, hypertension, renal disease Additional medical history: stage 3 kidney disease Psychiatric history: anxiety, depression - Past Surgical History Surgical History: orthopedic, other, other Additional surgical history: B/L Shoulder,. cervical disc - Social History Smoking Status: Never smoker Smokeless Tobacco Status: No Alcohol use: none Drug use: none - Family History Mother Family Member Ethnicity: Non- Living Status: Hx Family Cardiac Disorders: Yes (HEART PROBLEMS) Hx Family Respiratory Disorders: No Hx Family Cancer: No Hx Family GI Disorders: No Hx Family Endocrine Disorder: Yes (DM) Hx Family Neuromuscular Disorders: No Hx Family Neurologic Disorders: No Hx Family HEENT Disorders: No Hx Family Autoimmune Disorders: No Medications and Allergies Antiox#10/Om3/Dha/Epa/Lut/Zeax [I-Caps with Lutein-[place] 3 Sfg] 1 cap PO DAILY 07/08/17 [History] Aspirin [Lo-Dose Aspirin EC] 81 mg PO HS 07/08/17 [History] Atorvastatin [Lipitor] 40 mg PO HS 07/08/17 [History] Cholecalciferol (D-3) [Vitamin D] 5,000 unit PO DAILY 07/08/17 [History] Clopidogrel [Plavix] 75 mg PO HS 07/08/17 [History] Furosemide [Lasix] 20 mg PO DAILY 07/08/17 [History] Gabapentin [Neurontin] 300 mg PO HS 07/08/17 [History] Losartan Potassium [Cozaar] 50 mg PO DAILY 07/08/17 [History] Ranitidine HCl [Acid Tree [employer] Shrub Worker] 150 mg PO BID 07/08/17 [History] NIFEdipine XL (24 HR) [Procardia XL] 30 mg PO DAILY 7 Days #7 tablet.er 07/10/17 [Rx] Carvedilol 12.5 mg PO BID 07/19/18 [History] Dutasteride 0.5 mg PO HS 07/19/18 [History] Insulin Aspart Prot/Insuln Asp [Novolog Mix 70-30 Vial] 30 - 60 unit SQ BID 07/19/18 [History] Magnesium Oxide [Magnesium] 400 mg PO BID 07/19/18 [History] Spironolactone 50 mg PO BID 07/19/18 [History] Allergy/AdvReac Type Severity Reaction Status Date / Time clonidine AdvReac Nausea Verified 08/24/17 16:47 enalaprilat [From Vasotec] AdvReac Nausea Verified 08/24/17 16:47 fentanyl AdvReac Nausea Verified 08/24/17 16:47 lisinopril AdvReac Nausea Verified 08/24/17 16:47 naproxen AdvReac Nausea Verified 08/24/17 16:47 simvastatin AdvReac Nausea Verified 08/24/17 16:47 tramadol AdvReac Nausea Verified 08/24/17 16:47 All Systems: The remainder of the systems were reviewed and are negative Review of Systems: REVIEW OF SYSTEMS GENERAL: Negative for any nausea, vomiting, fevers Positive malaise and fatigue NEUROLOGIC: Negative for any blurry vision, blind spots, double vision, facial asymmetry, dysphagia, hemiparesis, hemisensory deficits, vertigo Positive-dizziness, gross motor weakness and bilateral arms and legs, paresthesias of left arm, difficulty with ambulating due to gross weakness, speech slurring HEENT: Negative for any head trauma, neck trauma, neck stiffness, photophobia, phonophobia, tinnitus CARDIAC: Negative for any chest pain, dyspnea on exertion, palpitations GASTROINTESTINAL: [id number] history of diarrhea; this has since resolved GENITOURINARY: Negative for any dysuria, hematuria, incontinence. ENDOCRINE: Thyroid trouble, heat/cold intolerance, excessive sweating, thirst MUSCULOSKELETAL: Negative-arthralgia or myalgia. Positive loss of strength bilateral arms and legs, decreased activity tolerance and limitations of motor activity diffusely INTEGUMENTARY: Negative for any rashes, eruptions, negative for any tick exposure Physical Examination - Vital Signs Vital Signs: Initial Vital Signs Temp Pulse Resp BP Pulse Ox 98.9 F 60 18 146/65 97 07/19/18 16:59 07/19/18 16:59 07/19/18 16:59 07/19/18 16:59 07/19/18 16:59 - Exam Exam: Examination: General Examination: *CONSTITUTIONAL: Alert and oriented x3, no acute distress *GENERAL APPEARANCE OF PATIENT appears healthy and well groomed *EYES: pupils equal, round, reactive to light and accommodation, conjunctiva clear without masses or ulcerations, fundi normal. *CARDIOVASCULAR no peripheral edema, distal temperature normal, dorsalis pedis pulses normal. See vital signs Musculoskeletal: *GAIT AND STATION normal, with normal Romberg testing, no abnormalities such as broad base gait or spasticity *ASSESSMENT OF MUSCLE STRENGTH IN THE UPPER AND LOWER EXTREMITIES bilateral deltoid, bicep, tricep, senior compliance analyst strength, hip flexors ,anterior tibialis, dorsoflexion of the foot 3/5 *MUSCLE TONE IN THE UPPER AND LOWER EXTREMITIES normal. No abnormal movements, fasciculations or atrophy identified. Neurological: *ORIENTATION to person, situation, time and place *RECURRENT AND REMOTE MEMORY intact *ATTENTION AND CONCENTRATION are normal *LANGUAGE FUNCTION no significant aphasia or dysarthia was noted. No evidence of hypophonia *FUND OF KNOWLEDGE aware of current events, past history, vocabulary *MENTAL attention span and concentration normal. *CN II optic fundi were normal, no papilledema noted. *CN III,IV, PERRLA extraocular eye movements were full, no nystagmus and no ptosis or ophthalmoplegia noted. *CN V shows normal sensation and jaw opens symmetrically. *CN VII shows normal facial movement symmetrically, upper and lower bilaterally. *CN VIII shows no significant hearing loss on exam *CN IX,,X palate elevated symmetrically *CN XI normal strength in the sternocleidomastoid muscles, symmetrical shoulder shrugging. *CN XII tongue protruded in the midline, with normal strength and movement. *SENSORY EXAMINATION light touch intact *REFLEXES: deep tendon reflexes were absent diffusely, no pathological reflexes were noted. *CEREBELLAR TESTING mild dysmetria noted bilaterally with finger to nose *PAIN LEVEL 0/10 Results - Laboratory Findings CBC and BMP: 07/19/18 17:10 07/20/18 05:01 Abnormal lab findings: Abnormal lab results RBC 3.90 M/mcL (4.19-5.50) L 07/19/18 17:10 Hgb 12.2 g/dL (12.9-16.9) L 07/19/18 17:10 Hct 36.6 % (37.5-50.1) L 07/19/18 17:10 Sodium 135 mEq/L (136-145) L 07/19/18 21:59 Potassium 5.5 mEq/L (3.5-5.1) H 07/20/18 05:01 Chloride 108 mEq/L (98-107) H 07/19/18 21:59 Carbon Dioxide 20 mEq/L (23-29) L 07/20/18 05:01 BUN 50 mg/dL (8-23) H 07/20/18 05:01 2.46 mg/dL (0.70-1.30) H 07/20/18 05:01 Est GFR ( Amer) 31 (> 60) L 07/20/18 05:01 Est GFR (Non-Af Amer) 25 (> 60) L 07/20/18 05:01 Glucose 227 mg/dL (70-105) H 07/20/18 05:01 POC Glucose 146 mg/dL (70-99) H 07/19/18 22:52 8.3 % (-5.6) H 07/20/18 05:01 304 (280-300) H 07/20/18 05:01 Calcium 8.5 mg/dL (8.6-10.3) L 07/19/18 21:59 AST 12 Units/L (13-39) L 07/20/18 05:01 5.9 g/dL (6.4-8.9) L 07/20/18 05:01 2.2 g/dL (2.4-3.5) L 07/20/18 05:01 Triglycerides 202 mg/dL (< 150) H 07/20/18 05:01 VLDL Cholesterol, Calc 40 mg/dL (< 31) H 07/20/18 05:01 31 mg/dL (40-59) L 07/20/18 05:01 - Diagnostic Findings Additional findings: CT/CT stroke alert head wo con IMPRESSION: No acute intracranial abnormality. Mild generalized atrophy and chronic ischemic changes as above. 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 Paranasal sinuses and mastoids are otherwise clear. CT/CT angio head IMPRESSION: Unremarkable CTA of the head and neck. Consult Discharge Plan - Plan Referrals: Raven Rhodes, [Primary Care Provider] - (Appointment has been requested. Our offices will call with an appointment time and date. If you do not hear from us, please call and schedule an appointment within 7-10 days after discharge.) <Jose Dye I - Last Filed: 07/20/18 16:00> Date of Encounter: 07/20/18 Assessment and Plan (1) AIDP (acute inflammatory demyelinating polyneuropathy) Current Visit: Yes Status: Acute I have personally performed a face to face diagnostic evaluation, including HPI, EXAM, which is included in the Assesment and plan, which was discussed with Gabriel Gutierrez CNP, I agree with the above outlined documentation. Patient history symptoms as well as exam findings, to be consistent with GBS/AIDP.(Guillain-Hesperia syndrome) Though this patient has an history of cervical spine disease status post surgery and has numbness and paresthesias and some weakness in his arms and also has some neural claudication , but before his GI symptoms he was still able to walk without much help. In the last 2-3 days it has gotten significantly worse to the point that he is not been able to get up and walk by himself, and now he is been having some weakness and heaviness in his upper extremities as well. On neurological examination He is alert awake and oriented 3, cranial nerves are intact, no evidence of any ophthalmoplegia or diplopia. Motor examination, 3+/4 minus at shoulder abduction elbow flexion and the senior compliance analyst. significant dysmetria on [id number]. Lower extremities he is also 4/4, with paresthesias, and difficulty in doing [id number], ankle dorsiflexion and plantarflexion is 3+. Sensory examination is intact, without any sensory level Reflexes are: 1/1 at elbow and wrist , 1/1 at the knees. 0 at ankles. PLAN: With this overall symptoms and condition and negative MRI of the brain, I would also suggest he should get an MRI of the cervical spine though it may not give us good description as he also has a history of cervical surgery but would do need to exclude any abnormality in the cervical spine as well, along with that we will check for vitamin B12 folate thyroid or any other metabolic abnormalities that may be causing or contributing to his symptoms. His symptoms are suggest only in 2 /3 days, it is a possibility they may get worse rather quickly so we need to keep an eye on his respiratory status as well as for any cardiac arrhythmias need to monitor his FVC/NIF twice a day. As if this started getting worse he may need to be intubated but currently seems to be stable. At the same time suggest to start him on IVIG, need to adjust the dosage according to her kidney function as is a history of renal failure. Unable to get a spinal tap as currently he is on Plavix and need to be on hold for at least for 7 days. Since that awaiting I suggest to start him empirically, He would need PT/OT consultation once he stabilizes and would need short-term rehabilitation as well. Discussed in detail with the patient and the family all questions were answered Jose Dye MD. NeurologyI (2) Stroke-like symptoms Current Visit: Yes Status: Acute History of Present Illness HPI: Mr. Mesa is a 78 year old male All Systems: The remainder of the systems were reviewed and are negative Physical Examination - Vital Signs Vital Signs: Initial Vital Signs Temp Pulse Resp BP Pulse Ox 98.9 F 60 18 146/65 97 07/19/18 16:59 07/19/18 16:59 07/19/18 16:59 07/19/18 16:59 07/19/18 16:59 Results - Laboratory Findings CBC and BMP: 07/19/18 17:10 07/20/18 05:01 Abnormal lab findings: Abnormal lab results RBC 3.90 M/mcL (4.19-5.50) L 07/19/18 17:10 Hgb 12.2 g/dL (12.9-16.9) L 07/19/18 17:10 Hct 36.6 % (37.5-50.1) L 07/19/18 17:10 Sodium 135 mEq/L (136-145) L 05/21/19 21:59 Potassium 5.5 mEq/L (3.5-5.1) H 07/20/18 05:01 Chloride 108 mEq/L (98-107) H 07/19/18 21:59 Carbon Dioxide 20 mEq/L (23-29) L 07/20/18 05:01 BUN 50 mg/dL (8-23) H 07/20/18 05:01 2.46 mg/dL (0.70-1.30) H 07/20/18 05:01 Est GFR ( Amer) 31 (> 60) L 07/20/18 05:01 Est GFR (Non-Af Amer) 25 (> 60) L 07/20/18 05:01 Glucose 227 mg/dL (70-105) H 07/20/18 05:01 POC Glucose 226 mg/dL (70-99) H 07/20/18 13:34 8.3 % (-5.6) H 07/20/18 05:01 304 (280-300) H 07/20/18 05:01 Calcium 8.5 mg/dL (8.6-10.3) L 07/19/18 21:59 AST 12 Units/L (13-39) L 07/20/18 05:01 5.9 g/dL (6.4-8.9) L 07/20/18 05:01 2.2 g/dL (2.4-3.5) L 07/20/18 05:01 Triglycerides 202 mg/dL (< 150) H 07/20/18 05:01 VLDL Cholesterol, Calc 40 mg/dL (< 31) H 07/20/18 05:01 31 mg/dL (40-59) L 07/20/18 05:01
--- NOTE | 2018-07-20 11:45 | Internal Med Progress Note ---
Hospitalist Progress Note - Encounter Date of Encounter: 07/20/18 Time of Encounter: 11:34 - Subjective Interval History: She was seen and examined earlier this morning neurology has been consulted highly suspicious for GBS-due to high suspicion of GBS patient will require close monitoring and will be transferred to nursing for with higher acuity-he will require greater than 2 midnight to complete workup and he will be transitioned to inpatient status - Exam Vitals: Temp Pulse Resp BP Pulse Ox 98.0 F 54 16 132/64 95 07/20/18 07:43 07/20/18 07:43 07/20/18 07:43 07/20/18 07:43 07/20/18 07:43 Exam: General: Alert and oriented 3 Skin:Normal color, no rash, no lesions. HEENT:EOM, pupils equal, round and reactive. Cardiovascular:Normal S1 & S2, no rubs, murmurs or gallops. No JVD. Pulse regular. Lungs: Basilar crackles on the left posterior thorax. Remainder of lungs were clear Abdomen:Soft, non-tender, no rigidity. Extremities:No deformity, no edema or tenderness, no joint swelling or clubbing. Neurological:Normal cognition; cranial nerves II through XII intact. Dizziness Gross motor weakness in bilateral legs difficulty with ambulating Pulses:Carotid and radial pulses normal +2. Rest of the physical exam is non contributory - Assessment and Plan (1) CAD (coronary artery disease) Current Visit: No Status: Chronic Assessment and Plan: History of coronary artery disease status post stents. Continue aspirin and beta edwardo, clopidogrel. (2) CKD (chronic kidney disease) Current Visit: No Status: Chronic Assessment and Plan: History of chronic kidney disease stage III followed [address] Dr[address] May. We will hold MARCO inhibitor and potassium sparing diuretic for now given mild acute kidney injury likely prerenal. Nephrology has been consulted-will require renal dose IVIG (3) Hyperkalemia Current Visit: Yes Status: Acute Assessment and Plan: Mild hyperkalemia with a potassium of 5.5. Patient currently on an MARCO inhibitor and Spironolactone. Patient received 1 L fluid bolus in the ED. Will hold MARCO inhibitor and Spironolactone -recheck chemistry (4) DVT prophylaxis Current Visit: No Status: Acute Assessment and Plan: Pneumatic compression devices. Patient currently on dual antiplatelet therapy. (5) Fmpjw-mz-rfulpvs kidney injury Current Visit: Yes Status: Acute Assessment and Plan: Acute on chronic kidney injury. History of CKD stage III followed by Dr. May. Patient's baseline creatinine appears to be near 2.2. Creatinine today2.46 We will reassess basic metabolic panel. Patient is voiding. We will continue to monitor (6) Stroke-like symptoms Current Visit: Yes Status: Acute Assessment and Plan: 78-year-old male presenting with stroke-like symptoms including expressive aphasia, left upper extremity paresthesias and bilateral lower extremity weakness concerning for TIA/CVA. Patient has risk factors including hypertension, diabetes and stage III chronic kidney disease. His bilateral lower extremity weakness would appear to be inconsistent with stroke-like symptoms, however, given the remainder of his symptoms cannot rule out stroke/TIA at this time. Aside from his left upper extremity paresthesias which at baseline is chronic, remainder of his neurologic exam appears to be normal. He does have weakness in his lower extremities 4 out of 5 on my assessment bilaterally. Does report a 3 to 4-day bout of loose stools this past weekend which he states has resolved which may be contributing to his mildly Lenore on chronic kidney injury and possibly his weakness. Guillain-Stantonsburg syndrome can be considered but would be on the differential at this point. We will continue workup for stroke/TIA. Patient received loading dose of aspirin in the ED -Frequent neurologic checks/telemetry -We will allow permissive hypertension -Echocardiogram Impressions: LVEF 60%. Mild concentric left ventricular hypertrophy with basal sigmoid septum. Mild left ventricular diastolic dysfunction. Normal right ventricular structure and function. Mild mitral regurgitation. Mild tricuspid regurgitation. No pulmonary hypertension. There is a small pericardial effusion present along the inferolateral wall of the LV. There is no echocardiographic evidence of tamponade. No evidence of PFO with agitated saline contrast. -MRI brain without contrast IMPRESSION: Chronic microvascular disease and bilateral remote lacunar infarcts without acute intracranial abnormality. Carotid duplexPreliminary report for bilateral carotid duplex is non-stenotic plaque bilaterally. Neurology consulted- highly suspect GBS-Petroleum the initiated on IVIG will need 5 days total dosing. Does have history CK D3 nephrology has been consulted concerning renal dose. We will closely monitor neuro state Respiratory consulted for close monitoring at [facility]-below 15 mL per take transferred to ICU this weekly every 6 hours PT and OT has been consulted Recommending MRI cervical spine to rule out any cervical abnormality-patient will need to be transferred to [place] for MRI due to history of metal Consulted rheumatology for GBS consult place will need follow-up in a.m. per day team (7) Type 2 diabetes mellitus Current Visit: Yes Status: Acute (8) AIDP (acute inflammatory demyelinating polyneuropathy) Current Visit: Yes Status: Suspected Assessment and Plan: -Neurology has been consulted based upon history symptoms as well as exam findings consistent with GBS/A IDP Frequent neurologic checks/telemetry -Echocardiogram Impressions: LVEF 60%. Mild concentric left ventricular hypertrophy with basal sigmoid septum. Mild left ventricular diastolic dysfunction. Normal right ventricular structure and function. Mild mitral regurgitation. Mild tricuspid regurgitation. No pulmonary hypertension. There is a small pericardial effusion present along the inferolateral wall of the LV. There is no echocardiographic evidence of tamponade. No evidence of PFO with agitated saline contrast. -MRI brain without contrast IMPRESSION: Chronic microvascular disease and bilateral remote lacunar infarcts without acute intracranial abnormality. Carotid duplexPreliminary report for bilateral carotid duplex is non-stenotic plaque bilaterally. Neurology consulted- highly suspect GBS-Petroleum the initiated on IVIG will need 5 days total dosing. Does have history CK D3 nephrology has been consulted concerning renal dose. We will closely monitor neuro state Respiratory consulted for close monitoring at [facility]-below 15 mL per take transfer red to ICU this weekly every 6 hours PT and OT has been consulted Recommending MRI cervical spine to rule out any cervical abnormality-patient will need to be transferred to [place] for MRI due to history of metal Consulted rheumatology for GBS consult place will need follow-up in a.m. per day team - Time Spent with Patient Total time spent is greater than 50% in coordination of care (as documented) at patient's floor/unit and/or counseling patient: Internal Medicine: Result - Labs CBC & Chem 7: 07/19/18 17:10 07/20/18 05:01 Labs: Short CBC 07/19/18 Range/Units 17:10 WBC 7.5 (4.3-11.1) K/mcL Hgb 12.2 L (12.9-16.9) g/dL Hct 36.6 L (37.5-50.1) % Plt Count 224 (140-400) K/mcL BMP 07/19/18 07/19/18 07/20/18 17:10 21:59 05:01 Sodium 134 L 135 L 137 Potassium 5.5 H 5.4 H 5.5 H Chloride 107 108 H 107 Carbon Dioxide 20 L 18 L 20 L BUN 58 H 53 H 50 H Creatinine 2.62 H 2.41 H 2.46 H Glucose 253 H 170 H 227 H Calcium 8.6 8.5 L 8.9 Cardiac Enzymes 07/19/18 07/20/18 Range/Units 17:10 05:01 Troponin I < 0.03 < 0.03 (< 0.04) ng/mL Liver Function 07/20/18 Range/Units 05:01 Total Bilirubin 0.4 (0.3-1.0) mg/dL AST 12 L (13-39) Units/L ALT 15 (7-52) Units/L Alkaline Phosphatase 44 (34-104) Units/L Albumin 3.7 (3.5-5.7) g/dL - ABG Interpretation ABG results: PT/INR, D-dimer PT 11.5 Seconds (9.4-12.1) 07/20/18 05:01 - Impressions Impressions Chest X-Ray 07/19/18 17:06 IMPRESSION: Stable portable study. D/ / Dyana Andrade Cha, MD / Dyana Andrade Cha, MD Interpreting Provider: Dyana Andrade Cha, MD Head CT 07/19/18 17:06 IMPRESSION: No acute intracranial abnormality. Mild generalized atrophy and chronic ischemic changes as above. 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 Paranasal sinuses and mastoids are otherwise clear. D/ / Stephen Pisano MD / Stephen Pisano MD Interpreting Provider: Stephen Pisano MD Head CTA 07/19/18 17:06 IMPRESSION: Unremarkable CTA of the head and neck. D/ / 07/19/2018 17:49:03 Parviz Bonilla MD / sari Interpreting Provider: Parviz Bonilla MD Neck CTA 07/19/18 17:07 IMPRESSION: Unremarkable CTA of the head and neck. D/ / 07/19/2018 17:49:03 Parviz Bonilla MD / sari Interpreting Provider: Parviz Bonilla MD Consult Discharge Plan - Plan Referrals: Raven Rhodes DO [Primary Care Provider] - (Appointment has been requested. Our offices will call with an appointment time and date. If you do not hear from us, please call and schedule an appointment within 7-10 days after discharge.) (1) CAD (coronary artery disease) Qualifiers: Coronary Disease-Associated Artery/Lesion type: [place] artery [place] vs. transplanted heart: [place] heart Associated angina: without angina Qualified Code(s): I25.10 - Atherosclerotic heart disease of [place] coronary artery without angina pectoris (2) CKD (chronic kidney disease) Qualifiers: Chronic kidney disease stage: stage 3 (moderate) Qualified Code(s): N18.3 - Chronic kidney disease, stage 3 (moderate) (5) Uyulz-sc-ludoeih kidney injury Qualifiers: Acute renal failure type: unspecified Chronic kidney disease stage: stage 3 (moderate) Qualified Code(s): N17.9 - Acute kidney failure, unspecified; N18.3 - Chronic kidney disease, stage 3 (moderate) (7) Type 2 diabetes mellitus Qualifiers: Qualified Code(s): E11.9 - Type 2 diabetes mellitus without complications
--- NOTE | 2018-07-20 13:05 | Electrocardiograph Report ---
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
[2018-07-20] MEDS ORDERED: IVIG (wt based) 5 GM/50 ML INFUS..BTL IVC SCH (15:45)
[2018-07-20 17:55] LABS: Calcium 9.1 mg/dL (8.6-10.3); Potassium 5.6 mEq/L (3.5-5.1)
[2018-07-20] MEDS: Immune Globulin, Gamma (IGG) 20 GM/200 ML INFUS..BTL IVC SCH (20:14)
[2018-07-20] MEDS: Gabapentin 300 MG CAPSULE PO SCH (20:21)
[2018-07-20] MEDS: Finasteride 5 MG TABLET PO SCH (20:21)
[2018-07-20] MEDS: Aspirin Enteric Coated 81 MG Tablet PO SCH (20:25)
[2018-07-20] MEDS: Immune Globulin, Gamma (IGG) 10 GM/100 ML INFUS..BTL IVC SCH (22:10)
[2018-07-20] MEDS: Immune Globulin, Gamma (IGG) 5 GM/50 ML INFUS..BTL IVC SCH (22:48)
[2018-07-20] MEDS: Insulin DETEMIR 100 UNIT/ML X5UNITS SQ SCH (23:48)
--- NOTE | 2018-07-21 08:50 | Internal Med Progress Note ---
Hospitalist Progress Note - Encounter Date of Encounter: 07/21/18 Time of Encounter: 09:00 - Subjective Interval History: Admitted for lower extremity weakness thought secondary to GBS. On IVIG - Exam Vitals: Temp Pulse Resp BP Pulse Ox 98.9 F 67 16 132/69 95 07/21/18 04:22 07/21/18 08:00 07/21/18 08:00 07/21/18 08:00 07/21/18 08:00 Exam: General: Alert and oriented 3 Skin:Normal color, no rash, no lesions. HEENT:EOM, pupils equal, round and reactive. Cardiovascular:Normal S1 & S2, no rubs, murmurs or gallops. No JVD. Pulse regular. Lungs: Basilar crackles on the left posterior thorax. Remainder of lungs were clear Abdomen:Soft, non-tender, no rigidity. Extremities:No deformity, no edema or tenderness, no joint swelling or clubbing. Neurological:Normal cognition; cranial nerves II through XII intact. Dizziness Gross motor weakness in bilateral legs difficulty with ambulating Pulses:Carotid and radial pulses normal +2. Rest of the physical exam is non contributory - Assessment and Plan (1) AIDP (acute inflammatory demyelinating polyneuropathy) Current Visit: Yes Status: Acute Assessment and Plan: -Neurology has been consulted based upon history symptoms as well as exam findings consistent with GBS/A IDP Neurology consulted- highly suspect GBS-Empirically they initiated him on IVIG will need 5 days total dosing. Does have history CK D3 nephrology has been consulted concerning renal dose. We will closely monitor neuro state Closely monitor respiratory status (2) Hyperkalemia Current Visit: Yes Status: Acute Assessment and Plan: Mild hyperkalemia with a potassium of 5.5. Patient currently on an MARCO inhibitor and Spironolactone. Patient received 1 L fluid bolus in the ED. Potassium trended up to 6.1 this am. Gave hyperkalemia cocktail with kayexalate and insulin, D50 and bicarb Repeat potassium was 4.9 (3) CAD (coronary artery disease) Current Visit: Yes Status: Chronic Assessment and Plan: History of coronary artery disease status post stents. Continue aspirin and beta edwardo, clopidogrel. (4) CKD (chronic kidney disease) Current Visit: Yes Status: Chronic Assessment and Plan: History of chronic kidney disease stage III followed [address] May. We will hold MARCO inhibitor and potassium sparing diuretic for now given mild acute kidney injury likely prerenal. Nephrology has been consulted-will require renal dose IVIG (5) Gmfrx-pz-skdxidy kidney injury Current Visit: Yes Status: Acute Assessment and Plan: Acute on chronic kidney injury. History of CKD stage III followed [address] May. Patient's baseline creatinine appears to be near 2.2. Creatinine today2.46 We will reassess basic metabolic panel. Patient is voiding. We will continue to monitor (6) Stroke-like symptoms Current Visit: Yes Status: Acute Assessment and Plan: Continue dual antiplatelet therapy. MRI showed no acute infarcts (7) Type 2 diabetes mellitus Current Visit: Yes Status: Acute Assessment and Plan: We will place patient on sliding scale insulin with blood glucose checks. Diabetic diet once passes speech and swallow eval. (8) DVT prophylaxis Current Visit: Yes Status: Acute Assessment and Plan: Pneumatic compression devices. - Time Spent with Patient Total time spent is greater than 50% in coordination of care (as documented) at patient's floor/unit and/or counseling patient: Internal Medicine: Result - Labs CBC & Chem 7: 07/21/18 09:31 07/21/18 14:33 Labs: BMP 07/20/18 17:23 Sodium 136 Potassium 5.6 H Chloride 109 H Carbon Dioxide 22 L BUN 42 H Creatinine 2.38 H Glucose 212 H Calcium 9.1 - ABG Interpretation ABG results: PT/INR, D-dimer PT 11.5 Seconds (9.4-12.1) 07/20/18 05:01 - Impressions Impressions Head CTA 07/19/18 17:06 IMPRESSION: 1. No high-grade stenosis or focal occlusion involving intracranial or cervical vasculature. No evidence of acute dissection. No evidence of aneurysm. 2. Moderate stenosis at junction of P1 and P2 segments of right posterior cerebral artery. D/ / 07/19/2018 17:49:03 Parviz Bonilla MD / sari Interpreting Provider: Parviz Bonilla MD Neck CTA 07/19/18 17:07 IMPRESSION: 1. No high-grade stenosis or focal occlusion involving intracranial or cervical vasculature. No evidence of acute dissection. No evidence of aneurysm. 2. Moderate stenosis at junction of P1 and P2 segments of right posterior cerebral artery. D/ / 07/19/2018 17:49:03 Parviz Bonilla MD / sari Interpreting Provider: Parviz Bonilla MD Brain MRI 07/20/18 19:44 IMPRESSION: Chronic microvascular disease and bilateral remote lacunar infarcts without acute intracranial abnormality. D/ / Gavin Braun / Gavin Braun Interpreting Provider: Gavin Braun Echocardiogram 07/20/18 19:46 Impressions: LVEF 60%. Mild concentric left ventricular hypertrophy with basal sigmoid septum. Mild left ventricular diastolic dysfunction. Normal right ventricular structure and function. Mild mitral regurgitation. Mild tricuspid regurgitation. No pulmonary hypertension. There is a small pericardial effusion present along the inferolateral wall of the LV. There is no echocardiographic evidence of tamponade. No evidence of PFO with agitated saline contrast. Left Ventricular Wall Motion: Rest Echo Findings All wall segments showed normal motion. Findings: Study Quality * Technically adequate exam. ECG Findings * Normal sinus rhythm. Left Ventricle * LVEF 60%. * Mild concentric left ventricular hypertrophy with basal sigmoid septum. No LVOTO. * Mild left ventricular diastolic dysfunction. Right Ventricle * Normal right ventricular structure and function. Left Atrium * Mildly dilated left atrium. Right Atrium * Normal right atrial size. Mitral Valve * Normal mitral valve structure. * No mitral stenosis. * Mild mitral annular calcification * Mild mitral regurgitation. Aortic Valve * No aortic regurgitation. * Trileaflet aortic valve. * Mildly calcified aortic valve leaflets. * No aortic stenosis. Tricuspid Valve * Mild tricuspid regurgitation. * Normal tricuspid valve structure. * Estimated RA pressure is 3 mmHg. * Estimated RVSP is 32 mmHg. * No pulmonary hypertension. Pulmonic Valve * Pulmonic valve is not well visualized. * No pulmonic stenosis. * No pulmonic regurgitation. Pulmonary Artery * Pulmonary artery not well visualized. Aorta * Normal aortic root size. Pericardium * There is a small pericardial effusion present along the inferolateral wall of the LV. * There is no echocardiographic evidence of tamponade. Interatrial Septum * No evidence of PFO by color Doppler. * No evidence of PFO with agitated saline contrast. IVC * Normal IVC dimensions and inspiratory collapse. Consult Discharge Plan - Plan Referrals: Raven Rhodes DO [Primary Care Provider] - (Appointment has been requested. Our offices will call with an appointment time and date. If you do not hear from us, please call and schedule an appointment within 7-10 days after discharge.) (3) CAD (coronary artery disease) Qualifiers: Coronary Disease-Associated Artery/Lesion type: [place] artery [place] vs. transplanted heart: [place] heart Associated angina: without angina Qualified Code(s): I25.10 - Atherosclerotic heart disease of [place] coronary artery without angina pectoris (4) CKD (chronic kidney disease) Qualifiers: Chronic kidney disease stage: stage 3 (moderate) Qualified Code(s): N18.3 - Chronic kidney disease, stage 3 (moderate) (5) Ctecq-ad-eyazmpj kidney injury Qualifiers: Acute renal failure type: unspecified Chronic kidney disease stage: stage 3 (moderate) Qualified Code(s): N17.9 - Acute kidney failure, unspecified; N18.3 - Chronic kidney disease, stage 3 (moderate) (7) Type 2 diabetes mellitus Qualifiers: Qualified Code(s): E11.9 - Type 2 diabetes mellitus without complications
[2018-07-21] MEDS: Cholecalciferol (D-3) 1,000 UNIT TABLET PO SCH (09:02)
[2018-07-21] MEDS: Insulin LISPRO 300 UNITS/3 ML VIAL SQ SCH ×3 (09:02→17:29)
[2018-07-21] MEDS: Multivit/Ca/Min/Fe/FA 1 TAB TABLET PO SCH (09:02)
[2018-07-21] MEDS: Famotidine 20 MG TABLET PO SCH ×2 (09:03→20:43)
[2018-07-21] MEDS: Furosemide 20 MG TABLET PO SCH (09:03)
[2018-07-21] MEDS: Magnesium Oxide 400 MG TABLET PO SCH ×2 (09:03→20:43)
[2018-07-21 09:51] LABS: Basophils # 0.1 K/mcL (0.0-0.2); Basophils % 0.8 %; Eosinophils # 0.2 K/mcL (0.0-0.6); Eosinophils % 2.6 %; Hematocrit 38.1 % (37.5-50.1); Hemoglobin 12.4 g/dL (12.9-16.9); Immature Granulocytes % 0.3 % (0-4); Lymphocytes # 0.6 K/mcL (0.6-4.6); Lymphocytes % 9.7 %; Mean Corpuscular HGB Conc 32.5 g/dL (31.6-35.5); Mean Corpuscular Volume 95.3 fL (83.0-100.0); Mean Platelet Volume 9.4 fL (9.4-12.4); Monocytes # 0.6 K/mcL (0.0-1.3); Monocytes % 9.2 %; Neutrophils # 4.7 K/mcL (1.6-8.9); Platelet Count 204 K/mcL (140-400); Red Cell Distribution Width 12.7 % (11.5-14.5); Segmented Neutrophils % 77.4 %
[2018-07-21 10:15] LABS: Calcium 8.6 mg/dL (8.6-10.3); Potassium 6.1 mEq/L (3.5-5.1)
[2018-07-21] MEDS ORDERED: Insulin Human Regular 5 UNIT, Sodium Bicarbonate 50 MEQ in D10% in Water 500 ML IVC ONE (10:30)
--- NOTE | 2018-07-21 10:37 | Nephrology Consult Note ---
Date of Encounter: 07/21/18 Time of Encounter: 10:05 Assessment and Plan (1) Hyperkalemia Current Visit: Yes Status: Acute (2) CKD (chronic kidney disease), stage IV Current Visit: Yes Status: Chronic History of Present Illness - Reason for Consult Consult date: 07/20/18 Acute Kidney Injury, Chronic Kidney Disease, hyperkalemia Requesting physician: Gabriel Gutierrez Past Med Surg Social Fam HX - Past Medical History Medical history: hyperlipidemia, hypertension, renal disease Additional medical history: stage 3 kidney disease Psychiatric history: anxiety, depression - Past Surgical History Surgical History: orthopedic, other, other Additional surgical history: B/L Shoulder,. cervical disc - Social History Smoking Status: Never smoker Smokeless Tobacco Status: No Alcohol use: none Drug use: none - Family History Mother Family Member Ethnicity: Non- Living Status: Hx Family Cardiac Disorders: Yes (HEART PROBLEMS) Hx Family Respiratory Disorders: No Hx Family Cancer: No Hx Family GI Disorders: No Hx Family Endocrine Disorder: Yes (DM) Hx Family Neuromuscular Disorders: No Hx Family Neurologic Disorders: No Hx Family HEENT Disorders: No Hx Family Autoimmune Disorders: No Medications and Allergies Antiox#10/Om3/Dha/Epa/Lut/Zeax [I-Caps with Lutein-[place] 3 Sfg] 1 cap PO DAILY 07/08/17 [History] Aspirin [Lo-Dose Aspirin EC] 81 mg PO HS 07/08/17 [History] Atorvastatin [Lipitor] 40 mg PO HS 07/08/17 [History] Cholecalciferol (D-3) [Vitamin D] 5,000 unit PO DAILY 07/08/17 [History] Clopidogrel [Plavix] 75 mg PO HS 07/08/17 [History] Furosemide [Lasix] 20 mg PO DAILY 07/08/17 [History] Gabapentin [Neurontin] 300 mg PO HS 07/08/17 [History] Losartan Potassium [Cozaar] 50 mg PO DAILY 07/08/17 [History] Ranitidine HCl [Acid Surgical [employer]] 150 mg PO BID 07/08/17 [History] NIFEdipine XL (24 HR) [Procardia XL] 30 mg PO DAILY 7 Days #7 tablet.er 07/10/17 [Rx] Carvedilol 12.5 mg PO BID 07/19/18 [History] Dutasteride 0.5 mg PO HS 07/19/18 [History] Insulin Aspart Prot/Insuln Asp [Novolog Mix 70-30 Vial] 30 - 60 unit SQ BID [History] Magnesium Oxide [Magnesium] 400 mg PO BID 07/19/18 [History] Spironolactone 50 mg PO BID 07/19/18 [History] Allergy/AdvReac Type Severity Reaction Status Date / Time clonidine AdvReac Nausea Verified 08/24/17 16:47 enalaprilat [From Vasotec] AdvReac Nausea Verified 08/24/17 16:47 fentanyl AdvReac Nausea Verified 08/24/17 16:47 lisinopril AdvReac Nausea Verified 08/24/17 16:47 naproxen AdvReac Nausea Verified 08/24/17 16:47 simvastatin AdvReac Nausea Verified 08/24/17 16:47 tramadol AdvReac Nausea Verified 08/24/17 16:47 Review of Systems All Systems: reviewed and no additional remarkable complaints except as stated Exam - Vital Signs Vital signs: Initial Vital Signs Temp Pulse Resp BP Pulse Ox 98.9 F 60 18 146/65 97 07/19/18 16:59 07/19/18 16:59 07/19/18 16:59 07/19/18 16:59 07/19/18 16:59 Vital Signs - Last 8 Hours Temp Pulse Resp BP Pulse Ox 07/21/18 08:00 67 16 132/69 95 07/21/18 04:22 98.9 F 85 15 122/93 93 Intake and Output 07/20/18 07/21/18 07/21/18 23:59 07:59 15:59 Intake Total 300.0 / 660.0 50 / 410 360 / 410 Output Total 250 / 1250 0 / 100 100 / 100 Balance 50.0 / -590.0 50 / 310 260 / 310 Intake: IV Fluids 300.0 / 300.0 50 / 50 Privigen 10% 10 GM/100 ML 10 gm 100.0 / 100.0 In 100 ml @ 0.05 GM/KG/HR 44. 95 mls/hr IVC DAILY@1800 [facility] Rx #:[id number] Privigen 10% 20 GM/200 ML 20 gm 200.0 / 200.0 In 200 ml @ 0.05 GM/KG/HR 44. 95 mls/hr IVC DAILY@1800 [facility] Rx #:[id number] Privigen 10% 5 GM/50 ML 5 gm In 50 / 50 50 ml @ 0.05 GM/KG/HR 44.95 mls/hr IVC DAILY@1800 [facility] Rx#: [id number] Oral 0 / 360 360 / 360 Output: Urine 250 / 1250 0 / 100 100 / 100 Other: Meal Breakfast Percent of Meal Consumed 100% Weight 92.4 kg 92.4 kg Blood Glucose* 226 236 Patient Weight 07/21/18 23:59 Weight 92.4 kg Results - Lab Results 07/21/18 09:31 07/21/18 09:31 Most recent lab results 07/21/18 09:31 Calcium 8.6 Consult Discharge Plan - Plan Referrals: Raven Rhodes, [Primary Care Provider] - (Appointment has been requested. Our offices will call with an appointment time and date. If you do not hear from us, please call and schedule an appointment within 7-10 days after discharge.)
--- NOTE | 2018-07-21 12:06 | Neurology Progress Note ---
<Gabriel Gutierrez - Last Filed: 07/21/18 13:25> Date of Encounter: 07/21/18 Time of Encounter: 12:03 Assessment and Plan (1) Stroke-like symptoms Current Visit: Yes Status: Acute (2) AIDP (acute inflammatory demyelinating polyneuropathy) Current Visit: Yes Status: Suspected Neurology consulted to evaluate for cause of diffuse gross motor weakness Patient reports ambulatory dysfunction and gross weakness of bilateral legs which began yesterday, now progressing to bilateral upper extremities Known history of cervical and lumbar radiculopathy CT of head in the ED negative for acute abnormality, CTA head and neck unremarkable as well Given recent history of GI illness and subsequent diffuse gross motor weakness the patient is thought to most likely have an acute inflammatory demyelinating polyneuropathy/GBS Exam findings today show improvement of bilateral arm weakness however, bilateral legs continue to be weaker than baseline, reflexes are 1+ b/l bicep, brachioradialis, triceps, patellar and Achilles c/w IVIG; however, given rapid improvement we will change IVIG dosing to a total of 3 doses PT/OT eval; will likely need long-term rehab continue with FVC monitoring, telemetry and frequent neuro assessment Subjective Principal diagnosis: acute inflammatory demyelinating polyneuropathy Interval history: Patient being seen today in follow-up for acute inflammatory demyelinating polyneuropathy. He presented yesterday evening with gross motor weakness. Patient's weakness began and legs and a sensitive to bilateral arms, additionally he was areflexic on my exam. This morning the weakness persists but is somewhat improving. He has improved strength in bilateral arms reports that he still feels weak overall and weak in bilateral legs. Reflexes are diminished today. He received his first dose of IVIG yesterday. Family present at bedside today. Discussed the need for rehabilitation following a diagnosis of acute inflammatory demyelinating polyneuropathy. We will have PT/OT evaluate the patient and determined that he and duration of therapy. Objective - Constitutional Vitals: Temp Pulse Resp BP Pulse Ox 98.9 F 65 17 133/79 95 07/21/18 04:22 07/21/18 11:39 07/21/18 11:39 07/21/18 11:39 07/21/18 11:39 Exam: Examination: General Examination: *CONSTITUTIONAL: Alert and oriented x3, no acute distress *GENERAL APPEARANCE OF PATIENT appears healthy and well groomed *EYES: pupils equal, round, reactive to light and accommodation, conjunctiva clear without masses or ulcerations, fundi normal. *CARDIOVASCULAR no peripheral edema, distal temperature normal, dorsalis pedis pulses normal. See vital signs PULMONARY: Lungs clear to auscultation bilaterally throughout anterior and posterior; no respiratory distress Musculoskeletal: *GAIT AND STATION normal, with normal Romberg testing, no abnormalities such as broad base gait or spasticity *ASSESSMENT OF MUSCLE STRENGTH IN THE UPPER AND LOWER EXTREMITIES bilateral deltoid, bicep, tricep, sound effects technician strength, hip flexors ,anterior tibialis, dorsoflexion of the foot 4/5 *MUSCLE TONE IN THE UPPER AND LOWER EXTREMITIES normal. No abnormal movements, fasciculations or atrophy identified. Neurological: *ORIENTATION to person, situation, time and place *RECURRENT AND REMOTE MEMORY intact *ATTENTION AND CONCENTRATION are normal *LANGUAGE FUNCTION no significant aphasia or dysarthia was noted. No evidence of hypophonia *FUND OF KNOWLEDGE aware of current events, past history, vocabulary *MENTAL attention span and concentration normal. *CN II optic fundi were normal, no papilledema noted. *CN III,IV, PERRLA extraocular eye movements were full, no nystagmus and no ptosis or ophthalmoplegia noted. *CN V shows normal sensation and jaw opens symmetrically. *CN VII shows normal facial movement symmetrically, upper and lower bilaterally. *CN VIII shows no significant hearing loss on exam *CN IX,,X palate elevated symmetrically *CN XI normal strength in the sternocleidomastoid muscles, symmetrical shoulder shrugging. *CN XII tongue protruded in the midline, with normal strength and movement. *SENSORY EXAMINATION light touch intact *REFLEXES: deep tendon reflexes were absent diffusely, no pathological reflexes were noted. *CEREBELLAR TESTING normal finger to nose exam *PAIN LEVEL 0/10 Results - Laboratory Findings CBC and BMP: 07/21/18 09:31 07/21/18 09:31 Abnormal lab findings: Abnormal lab results RBC 4.00 M/mcL (4.19-5.50) L 07/21/18 09:31 Hgb 12.4 g/dL (12.9-16.9) L 07/21/18 09:31 Hct 36.6 % (37.5-50.1) L 07/19/18 17:10 Sodium 134 mEq/L (136-145) L 07/21/18 09:31 Potassium 6.1 mEq/L (3.5-5.1) H 07/21/18 09:31 Chloride 109 mEq/L (98-107) H 07/20/18 17:23 Carbon Dioxide 20 mEq/L (23-29) L 07/21/18 09:31 BUN 40 mg/dL (8-23) H 07/21/18 09:31 2.45 mg/dL (0.70-1.30) H 07/21/18 09:31 Est GFR ( Amer) 31 (> 60) L 07/21/18 09:31 Est GFR (Non-Af Amer) 26 (> 60) L 07/21/18 09:31 Glucose 273 mg/dL (70-105) H 07/21/18 09:31 POC Glucose 236 mg/dL (70-99) H 07/21/18 08:04 8.3 % (-5.6) H 07/20/18 05:01 304 (280-300) H 07/20/18 05:01 Calcium 8.5 mg/dL (8.6-10.3) L 07/19/18 21:59 AST 12 Units/L (13-39) L 07/20/18 05:01 5.9 g/dL (6.4-8.9) L 07/20/18 05:01 2.2 g/dL (2.4-3.5) L 07/20/18 05:01 Triglycerides 202 mg/dL (< 150) H 07/20/18 05:01 VLDL Cholesterol, Calc 40 mg/dL (< 31) H 07/20/18 05:01 31 mg/dL (40-59) L 07/20/18 05:01 Consult Discharge Plan - Plan Referrals: Raven Rhodes, DO [Primary Care Provider] - (Appointment has been requested. Our offices will call with an appointment time and date. If you do not hear from us, please call and schedule an appointment within 7-10 days after discharge.) <Jose Dye I - Last Filed: 07/21/18 15:34> Date of Encounter: 07/21/18 Assessment and Plan (1) Stroke-like symptoms Current Visit: Yes Status: Acute (2) AIDP (acute inflammatory demyelinating polyneuropathy) Current Visit: Yes Status: Suspected I have personally performed a face to face diagnostic evaluation, including HPI, EXAM, which is included in the Assesment and plan, which was discussed with Gabriel Gutierrez CNP, I agree with the above outlined documentation. Overall pt seemed to doing much better, we will continue to monitor With a history of renal failure and good improvement with the initial 2 doses I have suggested to give only 3 total doses of IVIG Continue to monitor his kidney function If he continued to do well he could be discharged to the rehabilitation soon We will follow with you Jose Dye MD. NeurologyI Objective - Constitutional Vitals: Temp Pulse Resp BP Pulse Ox 98.9 F 65 17 133/79 95 07/21/18 04:22 07/21/18 11:39 07/21/18 11:39 07/21/18 11:39 07/21/18 11:39 Results - Laboratory Findings CBC and BMP: 07/21/18 09:31 07/21/18 14:33 Abnormal lab findings: Abnormal lab results RBC 4.00 M/mcL (4.19-5.50) L 07/21/18 09:31 Hgb 12.4 g/dL (12.9-16.9) L 07/21/18 09:31 Hct 36.6 % (37.5-50.1) L 07/19/18 17:10 Sodium 134 mEq/L (136-145) L 07/21/18 09:31 Potassium 6.1 mEq/L (3.5-5.1) H 07/21/18 09:31 Chloride 109 mEq/L (98-107) H 07/20/18 17:23 Carbon Dioxide 20 mEq/L (23-29) L 07/21/18 09:31 BUN 40 mg/dL (8-23) H 07/21/18 09:31 2.45 mg/dL (0.70-1.30) H 07/21/18 09:31 Est GFR ( Amer) 31 (> 60) L 07/21/18 09:31 Est GFR (Non-Af Amer) 26 (> 60) L 07/21/18 09:31 Glucose 273 mg/dL (70-105) H 07/21/18 09:31 POC Glucose 236 mg/dL (70-99) H 07/21/18 08:04 8.3 % (-5.6) H 07/20/18 05:01 304 (280-300) H 07/20/18 05:01 Calcium 8.5 mg/dL (8.6-10.3) L 07/19/18 21:59 AST 12 Units/L (13-39) L 07/20/18 05:01 5.9 g/dL (6.4-8.9) L 07/20/18 05:01 2.2 g/dL (2.4-3.5) L 07/20/18 05:01 Triglycerides 202 mg/dL (< 150) H 07/20/18 05:01 VLDL Cholesterol, Calc 40 mg/dL (< 31) H 07/20/18 05:01 31 mg/dL (40-59) L 07/20/18 05:01 500 mg/dL (Normal) H 07/21/18 13:52
[2018-07-21] MEDS: 0.9 % Sodium Chloride 1,000 ML IVC SCH (13:49)
[2018-07-21 14:50] LABS: Bilirubin,Urine Negative (Negative); Blood,Urine Negative (Negative); Clarity,Urine Clear (Clear); Color,Urine Yellow (Yellow); Glucose,Urine (UA) 500 mg/dL (Normal); Ketones,Urine Negative (Negative); Leukocyte Esterase,Urine Negative (Negative); Nitrite,Urine Negative (Negative); Protein,Urine Negative (Neg-Trace); Specific Gravity,Urine 1.019 (1.010-1.025); Urobilinogen,Urine Normal (Normal)
[2018-07-21] MEDS: Immune Globulin, Gamma (IGG) 20 GM/200 ML INFUS..BTL IVC SCH (17:41)
[2018-07-21] MEDS: Immune Globulin, Gamma (IGG) 10 GM/100 ML INFUS..BTL IVC SCH (19:49)
[2018-07-21] MEDS: Immune Globulin, Gamma (IGG) 5 GM/50 ML INFUS..BTL IVC SCH (20:27)
[2018-07-21] MEDS: Aspirin Enteric Coated 81 MG Tablet PO SCH (20:42)
[2018-07-21] MEDS: Finasteride 5 MG TABLET PO SCH (20:43)
[2018-07-21] MEDS: Gabapentin 300 MG CAPSULE PO SCH (20:43)
[2018-07-21] MEDS: Insulin DETEMIR 100 UNIT/ML X5UNITS SQ SCH (20:47)
[2018-07-21] MEDS ORDERED: Ondansetron 4 MG/2 ML VIAL IVP PRN (20:58)
[2018-07-22 04:31] LABS: Basophils # 0.1 K/mcL (0.0-0.2); Basophils % 0.8 %; Eosinophils # 0.3 K/mcL (0.0-0.6); Eosinophils % 4.3 %; Hematocrit 35.7 % (37.5-50.1); Hemoglobin 11.8 g/dL (12.9-16.9); Immature Granulocytes % 0.3 % (0-4); Lymphocytes # 0.9 K/mcL (0.6-4.6); Lymphocytes % 14.9 %; Mean Corpuscular HGB Conc 33.1 g/dL (31.6-35.5); Mean Corpuscular Hemoglobin 31.1 pg (28.0-33.3); Mean Corpuscular Volume 93.9 fL (83.0-100.0); Mean Platelet Volume 9.3 fL (9.4-12.4); Monocytes # 0.6 K/mcL (0.0-1.3); Monocytes % 9.8 %; Neutrophils # 4.4 K/mcL (1.6-8.9); Platelet Count 192 K/mcL (140-400); Red Cell Distribution Width 12.7 % (11.5-14.5); Segmented Neutrophils % 69.9 %
[2018-07-22 04:51] LABS: Calcium 8.6 mg/dL (8.6-10.3); Magnesium 1.7 mg/dL (1.6-2.6); Phosphorous 3.3 mg/dL (2.7-4.5); Potassium 4.9 mEq/L (3.5-5.1)
[2018-07-22] MEDS: 0.9 % Sodium Chloride 1,000 ML IVC SCH (06:16)
[2018-07-22] MEDS: Insulin LISPRO 300 UNITS/3 ML VIAL SQ SCH ×3 (08:15→18:34)
[2018-07-22] MEDS: Magnesium Oxide 400 MG TABLET PO SCH ×2 (08:16→20:25)
[2018-07-22] MEDS: Furosemide 20 MG TABLET PO SCH (08:16)
[2018-07-22] MEDS: Cholecalciferol (D-3) 1,000 UNIT TABLET PO SCH (08:16)
[2018-07-22] MEDS: Multivit/Ca/Min/Fe/FA 1 TAB TABLET PO SCH (08:17)
[2018-07-22] MEDS: Famotidine 20 MG TABLET PO SCH ×2 (08:17→20:24)
--- NOTE | 2018-07-22 10:03 | Internal Med Progress Note ---
Hospitalist Progress Note - Encounter Date of Encounter: 07/22/18 Time of Encounter: 10:00 - Subjective Interval History: No acute events overnight - Exam Vitals: Temp Pulse Resp BP Pulse Ox 98.0 F 75 20 173/86 95 07/22/18 07:19 07/22/18 07:19 07/22/18 05:38 07/22/18 07:19 07/22/18 07:19 Exam: General: Alert and oriented 3 Skin:Normal color, no rash, no lesions. HEENT:EOM, pupils equal, round and reactive. Cardiovascular:Normal S1 & S2, no rubs, murmurs or gallops. No JVD. Pulse regular. Lungs: Basilar crackles on the left posterior thorax. Remainder of lungs were clear Abdomen:Soft, non-tender, no rigidity. Extremities:No deformity, no edema or tenderness, no joint swelling or clubbing. Neurological:Normal cognition; cranial nerves II through XII intact. Dizziness Gross motor weakness in bilateral legs difficulty with ambulating Pulses:Carotid and radial pulses normal +2. Rest of the physical exam is non contributory - Assessment and Plan (1) AIDP (acute inflammatory demyelinating polyneuropathy) Current Visit: Yes Status: Acute Assessment and Plan: -Neurology has been consulted based upon history symptoms as well as exam findings consistent with GBS/A IDP Neurology consulted- highly suspect GBS-Empirically they initiated him on IVIG and will need 3 days total to complete course today LOwer extremity weakness has improved. Will commence discharge planning (2) Hyperkalemia Current Visit: Yes Status: Acute Assessment and Plan: Mild hyperkalemia with a potassium of 5.5. Patient currently on an MARCO inhibitor and Spironolactone. Patient received 1 L fluid bolus in the ED. Potassium trended up to 6.1 this am. Gave hyperkalemia cocktail with kayexalate and insulin, D50 and bicarb Repeat potassium was 4.9 Resolved (3) CAD (coronary artery disease) Current Visit: Yes Status: Chronic Assessment and Plan: coronary artery disease status post stents. Continue aspirin and beta edwardo, clopidogrel. (4) CKD (chronic kidney disease) Current Visit: Yes Status: Chronic Assessment and Plan: History of chronic kidney disease stage III followed by Dr. May. We will hold MARCO inhibitor and potassium sparing diuretic for now given mild acute kidney injury likely prerenal. Nephrology has been consulted-will require renally dosed IVIG (5) Uaqtb-bf-swkiitv kidney injury Current Visit: Yes Status: Acute Assessment and Plan: Acute on chronic kidney injury. Creatinine improving (6) Stroke-like symptoms Current Visit: Yes Status: Acute Assessment and Plan: Continue dual antiplatelet therapy. MRI showed no acute infarcts (7) Type 2 diabetes mellitus Current Visit: Yes Status: Acute Assessment and Plan: We will place patient on sliding scale insulin with blood glucose checks. Diabetic diet once passes speech and swallow eval. (8) DVT prophylaxis Current Visit: Yes Status: Acute Assessment and Plan: Pneumatic compression devices. - Time Spent with Patient Total time spent is greater than 50% in coordination of care (as documented) at patient's floor/unit and/or counseling patient: Internal Medicine: Result - Labs CBC & Chem 7: 07/22/18 03:35 07/22/18 03:35 Labs: Short CBC 07/22/18 Range/Units 03:35 WBC 6.3 (4.3-11.1) K/mcL Hgb 11.8 L (12.9-16.9) g/dL Hct 35.7 L (37.5-50.1) % Plt Count 192 (140-400) K/mcL Neutrophils # 4.4 (1.6-8.9) K/mcL BMP 07/21/18 07/21/18 07/22/18 09:31 14:33 03:35 Sodium 134 L 135 L Potassium 6.1 H 4.9 4.9 Chloride 106 104 Carbon Dioxide 20 L 23 BUN 40 H 39 H Creatinine 2.45 H 2.13 H Glucose 273 H 220 H Calcium 8.6 8.6 Urine 07/21/18 Range/Units 13:52 Urine Color Yellow (Yellow) Urine Clarity Clear (Clear) Urine pH 6.0 (5.0-8.0) pH Units Ur Specific Kerrick 1.019 (1.010-1.025) Urine Protein Negative (Neg-Trace) mg/dL Urine Glucose (UA) 500 H (Normal) mg/dL - ABG Interpretation ABG results: PT/INR, D-dimer PT 11.5 Seconds (9.4-12.1) 07/20/18 05:01 Consult Discharge Plan - Plan Referrals: Raven Rhodes DO [Primary Care Provider] - (Appointment has been requested. Our offices will call with an appointment time and date. If you do not hear from us, please call and schedule an appointment within 7-10 days after discharge.) (3) CAD (coronary artery disease) Qualifiers: Coronary Disease-Associated Artery/Lesion type: [place] artery [place] vs. transplanted heart: [place] heart Associated angina: without angina Qualified Code(s): I25.10 - Atherosclerotic heart disease of [place] coronary artery without angina pectoris (4) CKD (chronic kidney disease) Qualifiers: Chronic kidney disease stage: stage 3 (moderate) Qualified Code(s): N18.3 - Chronic kidney disease, stage 3 (moderate) (5) Eiutj-sx-fzlriza kidney injury Qualifiers: Acute renal failure type: unspecified Chronic kidney disease stage: stage 3 (moderate) Qualified Code(s): N17.9 - Acute kidney failure, unspecified; N18.3 - Chronic kidney disease, stage 3 (moderate) (7) Type 2 diabetes mellitus Qualifiers: Qualified Code(s): E11.9 - Type 2 diabetes mellitus without complications
--- NOTE | 2018-07-22 14:18 | Neurology Progress Note ---
<Gabriel Gutierrez J - Last Filed: 07/22/18 14:15> Date of Encounter: 07/22/18 Time of Encounter: 14:15 Assessment and Plan (1) Stroke-like symptoms Current Visit: Yes Status: Acute (2) AIDP (acute inflammatory demyelinating polyneuropathy) Current Visit: Yes Status: Acute Clinically, patient has improved significantly. No new deficits noted on todays exam. He is now ambulatory with a four wheeled walker for support. C/W IVIG; receiving final dose today for a total of 3-doses. Suggesting 3-total doses d/t h/o CKD III and significant rapid improvement. We are recommending rehab. F/u with Dr. Dye in the clinic 2-3 weeks after D/C. Neurology will sign off at this time. Please consult should any further need arise. Subjective Principal diagnosis: acute inflammatory demyelinating polyneuropathy Interval history: Patient being seen today in follow-up for acute inflammatory demyelinating poly neuropathy. He presented the evening of 07/20 with gross motor weakness. DX with AIDP/GBS. Subsequently was treated with IVIG and has improved significantly. Up in chair today and stating he would like to discharge to rehab today if possible. Objective - Constitutional Vitals: Temp Pulse Resp BP Pulse Ox 98.0 F 66 20 166/80 97 07/22/18 07:19 07/22/18 11:31 07/22/18 05:38 07/22/18 11:31 07/22/18 11:31 Exam: Examination: General Examination: *CONSTITUTIONAL: Alert and oriented x3, no acute distress *GENERAL APPEARANCE OF PATIENT appears healthy and well groomed *EYES: pupils equal, round, reactive to light and accommodation, conjunctiva clear without masses or ulcerations, fundi normal. *CARDIOVASCULAR no peripheral edema, distal temperature normal, dorsalis pedis pulses normal. See vital signs PULMONARY: Lungs clear to auscultation bilaterally throughout anterior and posterior; no respiratory distress Musculoskeletal: *GAIT AND STATION normal, with normal Romberg testing, no abnormalities such as broad base gait or spasticity *ASSESSMENT OF MUSCLE STRENGTH IN THE UPPER AND LOWER EXTREMITIES bilateral deltoid, bicep, tricep, ve teacher strength, hip flexors ,anterior tibialis, dorsoflexion of the foot 4/5; strength has significantly improved since admission *MUSCLE TONE IN THE UPPER AND LOWER EXTREMITIES normal. No abnormal movements, fasciculations or atrophy identified. Neurological: *ORIENTATION to person, situation, time and place *RECURRENT AND REMOTE MEMORY intact *ATTENTION AND CONCENTRATION are normal *LANGUAGE FUNCTION no significant aphasia or dysarthia was noted. No evidence of hypophonia *FUND OF KNOWLEDGE aware of current events, past history, vocabulary *MENTAL attention span and concentration normal. *CN II optic fundi were normal, no papilledema noted. *CN III,IV, PERRLA extraocular eye movements were full, no nystagmus and no ptosis or ophthalmoplegia noted. *CN V shows normal sensation and jaw opens symmetrically. *CN VII shows normal facial movement symmetrically, upper and lower bilaterally. *CN VIII shows no significant hearing loss on exam *CN IX,,X palate elevated symmetrically *CN XI normal strength in the sternocleidomastoid muscles, symmetrical shoulder shrugging. *CN XII tongue protruded in the midline, with normal strength and movement. *SENSORY EXAMINATION light touch intact *REFLEXES: deep tendon reflexes were absent diffusely, no pathological reflexes were noted. *CEREBELLAR TESTING normal finger to nose exam *PAIN LEVEL 0/10 Results - Laboratory Findings CBC and BMP: 07/22/18 03:35 07/22/18 03:35 Abnormal lab findings: Abnormal lab results RBC 3.80 M/mcL (4.19-5.50) L 07/22/18 03:35 Hgb 11.8 g/dL (12.9-16.9) L 07/22/18 03:35 Hct 35.7 % (37.5-50.1) L 07/22/18 03:35 MPV 9.3 fL (9.4-12.4) L 07/22/18 03:35 Sodium 135 mEq/L (136-145) L 07/22/18 03:35 Potassium 6.1 mEq/L (3.5-5.1) H 07/21/18 09:31 Chloride 109 mEq/L (98-107) H 07/20/18 17:23 Carbon Dioxide 20 mEq/L (23-29) L 07/21/18 09:31 BUN 39 mg/dL (8-23) H 07/22/18 03:35 2.13 mg/dL (0.70-1.30) H 07/22/18 03:35 Est GFR ( Amer) 36 (> 60) L 07/22/18 03:35 Est GFR (Non-Af Amer) 30 (> 60) L 07/22/18 03:35 Glucose 220 mg/dL (70-105) H 07/22/18 03:35 POC Glucose 288 mg/dL (70-99) H 07/21/18 20:50 8.3 % (-5.6) H 07/20/18 05:01 304 (280-300) H 07/20/18 05:01 Calcium 8.5 mg/dL (8.6-10.3) L 07/19/18 21:59 AST 12 Units/L (13-39) L 07/20/18 05:01 5.9 g/dL (6.4-8.9) L 07/20/18 05:01 2.2 g/dL (2.4-3.5) L 07/20/18 05:01 Triglycerides 202 mg/dL (< 150) H 07/20/18 05:01 VLDL Cholesterol, Calc 40 mg/dL (< 31) H 07/20/18 05:01 31 mg/dL (40-59) L 07/20/18 05:01 500 mg/dL (Normal) H 07/21/18 13:52 Consult Discharge Plan - Plan Referrals: Raven Rhodes DO [Primary Care Provider] - (Appointment has been requested. Our offices will call with an appointment time and date. If you do not hear from us, please call and schedule an appointment within 7-10 days after discharge.) <Jose Dye I - Last Filed: 07/22/18 15:47> Date of Encounter: 07/22/18 Assessment and Plan (1) Stroke-like symptoms Current Visit: Yes Status: Acute (2) AIDP (acute inflammatory demyelinating polyneuropathy) Current Visit: Yes Status: Acute I have personally performed a face to face diagnostic evaluation, including HPI, EXAM, which is included in the Assesment and plan, which was discussed with Gabriel Gutierrez CNP, I agree with the above outlined documentation. pt continued to imporve clinically suspect it was MILD CASE OF GBS< and with early diagnosis and treatment, improved significantly, after completion of 3 doses of IVIG< may be transferred to rehab, as his gait and balance may continue to be a issues for a while, may take a while to be back to baseline, may restart PLAVIX< and no need to do spinal tap at this time OK to transfer to rehab from neuro stand point Jose Dye MD Objective - Constitutional Vitals: Temp Pulse Resp BP Pulse Ox 98.0 F 68 20 175/81 95 07/22/18 07:19 07/22/18 15:36 07/22/18 05:38 07/22/18 15:36 07/22/18 15:36 Results - Laboratory Findings CBC and BMP: 07/22/18 03:35 07/22/18 03:35 Abnormal lab findings: Abnormal lab results RBC 3.80 M/mcL (4.19-5.50) L 07/22/18 03:35 Hgb 11.8 g/dL (12.9-16.9) L 07/22/18 03:35 Hct 35.7 % (37.5-50.1) L 07/22/18 03:35 MPV 9.3 fL (9.4-12.4) L 07/22/18 03:35 Sodium 135 mEq/L (136-145) L 07/22/18 03:35 Potassium 6.1 mEq/L (3.5-5.1) H 07/21/18 09:31 Chloride 109 mEq/L (98-107) H 07/20/18 17:23 Carbon Dioxide 20 mEq/L (23-29) L 07/21/18 09:31 BUN 39 mg/dL (8-23) H 07/22/18 03:35 2.13 mg/dL (0.70-1.30) H 07/22/18 03:35 Est GFR ( Amer) 36 (> 60) L 07/22/18 03:35 Est GFR (Non-Af Amer) 30 (> 60) L 07/22/18 03:35 Glucose 220 mg/dL (70-105) H 07/22/18 03:35 POC Glucose 288 mg/dL (70-99) H 07/21/18 20:50 8.3 % (-5.6) H 07/20/18 05:01 304 (280-300) H 07/20/18 05:01 Calcium 8.5 mg/dL (8.6-10.3) L 07/19/18 21:59 AST 12 Units/L (13-39) L 07/20/18 05:01 5.9 g/dL (6.4-8.9) L 07/20/18 05:01 2.2 g/dL (2.4-3.5) L 07/20/18 05:01 Triglycerides 202 mg/dL (< 150) H 07/20/18 05:01 VLDL Cholesterol, Calc 40 mg/dL (< 31) H 07/20/18 05:01 31 mg/dL (40-59) L 07/20/18 05:01 500 mg/dL (Normal) H 07/21/18 13:52
--- NOTE | 2018-07-22 15:26 | Nephrology Progress Note ---
Date of Encounter: 07/22/18 Time of Encounter: 13:30 - Assessment and Plan (1) Sifkx-bk-hgrcgvm kidney injury Current Visit: Yes Status: Acute : GFR seems to be improving. Currently at 30 (baseline of 34). MARCO-I on hold. On Lasix 20 mg PO. On IVIG. Good UOP of 0.7 cc/kg/hr. - Encourage PO fluids. - Avoid nephrotoxins. - Renal dose medications. Qualifiers: Acute renal failure type: unspecified Chronic kidney disease stage: stage 3 (moderate) Qualified Code(s): N17.9 - Acute kidney failure, unspecified; N18.3 - Chronic kidney disease, stage 3 (moderate) (2) CAD (coronary artery disease) Current Visit: Yes Status: Chronic Qualifiers: Coronary Disease-Associated Artery/Lesion type: [place] artery [place] vs. transplanted heart: [place] heart Associated angina: without angina Qualified Code(s): I25.10 - Atherosclerotic heart disease of [place] coronary artery without angina pectoris (3) CKD (chronic kidney disease) Current Visit: Yes Status: Chronic Qualifiers: Chronic kidney disease stage: stage 3 (moderate) Qualified Code(s): N18.3 - Chronic kidney disease, stage 3 (moderate) (4) Type 2 diabetes mellitus Current Visit: Yes Status: Acute Qualifiers: Qualified Code(s): E11.9 - Type 2 diabetes mellitus without complications (5) AIDP (acute inflammatory demyelinating polyneuropathy) Current Visit: Yes Status: Acute Subjective Principal diagnosis: acute inflammatory demyelinating polyneuropathy Interval history: When seen today, patient says that he was feeling much better. He says that the strength in the LE and UE has been progressively returning. He denies any focal weakness. Admits to some numbness/tingling in his LUE, however he says that has been a chronic issue. No numbness/tingling in his other extremities. He denies any SOB. Denies chest pain. Denies fever. Deneis SAL or dizziness. Denies any abdominal pain. Says that his stool has become more formed. Objective - Vital Signs Vital signs: Vital Signs Temp Pulse Resp BP Pulse Ox 07/22/18 11:31 66 166/80 97 07/22/18 07:19 98.0 F 75 173/86 95 07/22/18 05:38 97.7 F 79 20 187/94 96 07/21/18 22:36 12 95 07/21/18 21:18 98.2 F 71 16 195/87 96 07/21/18 16:49 68 16 161/82 94 Intake and Output 07/21/18 07/22/18 07/22/18 23:59 07:59 15:59 Intake Total 1240.0 / 1650.0 700 / 1080 380 / 1080 Output Total 975 / 1600 700 / 800 100 / 800 Balance 265.0 / 50.0 0 / 280 280 / 280 Intake: IV Fluids 700.0 / 750.0 600 / 600 0.9 % Sodium Chloride 1,000 ML 400 / 400 600 / 600 @ 75 mls/hr IVC .[id number] [facility] Rx #:[id number] Privigen 10% 10 GM/100 ML 10 gm 100 / 100 In 100 ml @ 0.05 GM/KG/HR 44. 95 mls/hr IVC DAILY@1800 [facility] Rx #:[id number] Privigen 10% 20 GM/200 ML 20 gm 200.0 / 200.0 In 200 ml @ 0.05 GM/KG/HR 44. 95 mls/hr IVC DAILY@1800 [facility] Rx #:[id number] Oral 540 / 900 100 / 480 380 / 480 Output: Urine 975 / 1600 700 / 800 100 / 800 Other: Meal Dinner Lunch Percent of Meal Consumed 80% 100% Stool Size Copious Stool Consistency loose Stool Color Brown # Bowel Movements 1 Weight 94.7 kg Blood Glucose* 291 197 280 Patient Weight 07/22/18 23:59 Weight 94.7 kg - General Appearance General appearance: Present: well-developed, well-nourished, appears started age EENT: Present: PERRL, mucous membranes moist, hearing intact Neck: Present: no JVD Respiratory: Present: clear Cardiology: Present: no murmurs, no rub, no gallops, no edema, regular rate, regular rhythm, normal S1, normal S2 Gastrointestinal: Present: normoactive bowel sounds, no tenderness, no guarding Integumentary: Present: no rash, warm and dry Neurologic: Present: no focal deficit, alert and oriented x3, reflexes 2+ and symmetric, strength 5/5, CN 3-12 intact Musculoskeletal: Present: no deformities, no erythema, no cyanosis, no clubbing Psychiatric: Present: mood/affect appropriate, cooperative - Lab 07/22/18 03:35 07/22/18 03:35 Most recent lab results 07/22/18 03:35 Calcium 8.6 Phosphorus 3.3 Magnesium 1.7 Consult Discharge Plan - Plan Referrals: Raven Rhodes, [Primary Care Provider] - (Appointment has been requested. Our offices will call with an appointment time and date. If you do not hear from us, please call and schedule an appointment within 7-10 days after discharge.)
[2018-07-22] MEDS: Immune Globulin, Gamma (IGG) 10 GM/100 ML INFUS..BTL IVC SCH (18:00)
[2018-07-22] MEDS: Immune Globulin, Gamma (IGG) 20 GM/200 ML INFUS..BTL IVC SCH (18:18)
[2018-07-22] MEDS: Finasteride 5 MG TABLET PO SCH (20:25)
[2018-07-22] MEDS: Gabapentin 300 MG CAPSULE PO SCH (20:25)
[2018-07-22] MEDS: Insulin DETEMIR 100 UNIT/ML X5UNITS SQ SCH (20:25)
[2018-07-22] MEDS: Aspirin Enteric Coated 81 MG Tablet PO SCH (20:25)
[2018-07-22] MEDS: Immune Globulin, Gamma (IGG) 5 GM/50 ML INFUS..BTL IVC SCH (20:56)
[2018-07-23 04:58] LABS: Basophils # 0.1 K/mcL (0.0-0.2); Basophils % 0.7 %; Eosinophils # 0.3 K/mcL (0.0-0.6); Eosinophils % 4.1 %; Hematocrit 34.8 % (37.5-50.1); Hemoglobin 11.5 g/dL (12.9-16.9); Immature Granulocytes % 0.4 % (0-4); Lymphocytes % 14.7 %; Mean Corpuscular Hemoglobin 31.1 pg (28.0-33.3); Mean Corpuscular Volume 94.1 fL (83.0-100.0); Mean Platelet Volume 9.3 fL (9.4-12.4); Monocytes # 0.9 K/mcL (0.0-1.3); Neutrophils # 4.7 K/mcL (1.6-8.9); Platelet Count 170 K/mcL (140-400); Red Cell Distribution Width 12.8 % (11.5-14.5); Segmented Neutrophils % 67.1 %
[2018-07-23 05:18] LABS: Calcium 8.7 mg/dL (8.6-10.3); Magnesium 1.6 mg/dL (1.6-2.6); Phosphorous 3.6 mg/dL (2.7-4.5); Potassium 4.6 mEq/L (3.5-5.1)
--- NOTE | 2018-07-23 07:44 | Discharge Summary ---
Date of Encounter: 07/23/18 Time of Encounter: 07:45 - Discharge Diagnosis (1) AIDP (acute inflammatory demyelinating polyneuropathy) Priority: Primary Status: Acute Assessment and Plan: 78 year old male with a past medical history of hypertension, hyperlipidemia, stage III kidney disease and diabetes who presented to the ED with complaints of bilateral lower extremity weakness, paresthesias a left upper extremity and slurred speech. Patient states that around noon today shortly after having lunch he felt extremely weak in his lower extremities from the hip down towards. He stated he had difficulty standing and ambulating to his car. The patient drove himself home and upon arrival required a family member to help him into the house. Denies any numbness or paresthesias of the lower extremities. He also expressed numbness in his left arm which she states he has at baseline but was worse than usual. He checked his blood sugar at home which was around 250. Patient subsequently presented to the ED 5 hours after symptom onset. ED documentation reports slurred speech and expressive aphasia to which the patient states he may have had. Family members in the room also noted some difficulty with his speech. Patient denies any prior history of stroke He was admitted to rule out stroke and had a stroke workup with MRI and echo done which came back. Neurology were consulted based upon history symptoms as we ll as exam findings consistent with GBS/AIDP. 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 He was also noted to be taking multiple antihypertensives and some of his BP meds were discontinued on discharge as polypharmacy may be contributing to his weakness. He was discharged in a stable condition to rehab. His weakness had improved at the time of discharge. 35 minutes was spent discharging this patient (2) Hyperkalemia Priority: Primary Status: Acute (3) CAD (coronary artery disease) Priority: Primary Status: Chronic Qualifiers: Coronary Disease-Associated Artery/Lesion type: [place] artery [place] vs. transplanted heart: [place] heart Associated angina: without angina Qualified Code(s): I25.10 - Atherosclerotic heart disease of [place] coronary artery without angina pectoris (4) CKD (chronic kidney disease) Priority: Primary Status: Chronic Qualifiers: Chronic kidney disease stage: stage 3 (moderate) Qualified Code(s): N18.3 - Chronic kidney disease, stage 3 (moderate) (5) Mchfb-iu-kgxerts kidney injury Priority: Primary Status: Acute Qualifiers: Acute renal failure type: unspecified Chronic kidney disease stage: stage 3 (moderate) Qualified Code(s): N17.9 - Acute kidney failure, unspecified; N18.3 - Chronic kidney disease, stage 3 (moderate) (6) Stroke-like symptoms Priority: Primary Status: Acute (7) Type 2 diabetes mellitus Priority: Primary Status: Acute Qualifiers: Qualified Code(s): E11.9 - Type 2 diabetes mellitus without complications (8) DVT prophylaxis Priority: Primary Status: Acute Hospital course: Mr. Mesa is a 78 year old male - Time Spent with Patient Total time spent providing and/or coordinating discharge services: - Discharge Medications Prescriptions: Continued Antiox#10/Om3/Dha/Epa/Lut/Zeax [I-Caps with Lutein-[place] 3 Sfg] 1 cap PO DAILY Aspirin [Lo-Dose Aspirin EC] 81 mg PO HS Atorvastatin [Lipitor] 40 mg PO HS Cholecalciferol (D-3) [Vitamin D] 5,000 unit PO DAILY Clopidogrel [Plavix] 75 mg PO HS Furosemide [Lasix] 20 mg PO DAILY Gabapentin [Neurontin] 300 mg PO HS Ranitidine HCl [Acid Staff Nurse Midwife] 150 mg PO BID Carvedilol 12.5 mg PO BID Dutasteride 0.5 mg PO HS Insulin Aspart Prot/Insuln Asp [Novolog Mix 70-30 Vial] 30 - 60 unit SQ BID Magnesium Oxide [Magnesium] 400 mg PO BID Discontinued Losartan Potassium [Cozaar] 50 mg PO DAILY NIFEdipine XL (24 HR) [Procardia XL] 30 mg PO DAILY 7 Days #7 tablet.er Spironolactone 50 mg PO BID Home Medications: Antiox#10/Om3/Dha/Epa/Lut/Zeax [I-Caps with Lutein-[place] 3 Sfg] 1 cap PO DAILY 07/08/17 [History] Aspirin [Lo-Dose Aspirin EC] 81 mg PO HS 07/08/17 [History] Atorvastatin [Lipitor] 40 mg PO HS 07/08/17 [History] Cholecalciferol (D-3) [Vitamin D] 5,000 unit PO DAILY 07/08/17 [History] Clopidogrel [Plavix] 75 mg PO HS 07/08/17 [History] Furosemide [Lasix] 20 mg PO DAILY 07/08/17 [History] Gabapentin [Neurontin] 300 mg PO HS 07/08/17 [History] Ranitidine HCl [Acid Staff Nurse Midwife] 150 mg PO BID 07/08/17 [History] Carvedilol 12.5 mg PO BID 07/19/18 [History] Dutasteride 0.5 mg PO HS 07/19/18 [History] Insulin Aspart Prot/Insuln Asp [Novolog Mix 70-30 Vial] 30 - 60 unit SQ BID 07/19/18 [History] Magnesium Oxide [Magnesium] 400 mg PO BID 07/19/18 [History] Allergies/Adverse Reactions: Allergy/AdvReac Type Severity Reaction Status Date / Time clonidine AdvReac Nausea Verified 08/24/17 16:47 enalaprilat [From Vasotec] AdvReac Nausea Verified 08/24/17 16:47 fentanyl AdvReac Nausea Verified 08/24/17 16:47 lisinopril AdvReac Nausea Verified 08/24/17 16:47 naproxen AdvReac Nausea Verified 08/24/17 16:47 simvastatin AdvReac Nausea Verified 08/24/17 16:47 tramadol AdvReac Nausea Verified 08/24/17 16:47 Date of admission: 07/20/18 17:01 Primary care physician: Nat Torres Consults: 07/19/18 19:44 Consult to Neurology [CONS] Routine Consulting Provider: Neurology [facility] Reason for Consult: TIA/CVA Call Completed: No 07/20/18 14:15 Consult to Occupational Therapy [CONS] Routine Comment: Evaluate, develop and implement POC Reason for Consult: weakness Does patient have active BEDREST order?: Yes Is patient medically & hemodynamically stable?: Yes Patient assessed for mobility or mobilized this visit?: No Consult to Physical Therapy [CONS] Routine Comment: Evaluate, develop and implement POC Reason for Consult: weakness Does patient have active BEDREST order?: Yes Is patient medically & hemodynamically stable?: Yes Patient assessed for mobility or mobilized this visit?: No 07/20/18 15:28 Consult to Respiratory Therapy [CONS] Routine Reason for Consult: Q4H FVC and NIF Time Notified: 15:28 Call Completed: Yes 07/20/18 15:29 Consult to Nephrology [CONS] Routine Consulting Provider: [facility] Reason for Consult: Dr. Mercado patient with h/o CKD III. We are dosing IVIG; nephrology recommendations appreciated. Time Notified: 15:35 Call Completed: Yes 07/20/18 17:09 Consult to Rheumatology [CONS] Routine Consulting Provider: Rheumatology Kim Reason for Consult: GBS Time Notified: 17:14 Call Completed: No 07/22/18 09:59 Consult to Lead Worker Of Housekeeping And Laundry [CONS] Routine Reason for SW Consult: swing bed/ rehab - Constitutional Vitals: Temp Pulse Resp BP Pulse Ox 98.3 F 75 16 159/83 92 07/23/18 07:28 07/23/18 07:28 07/23/18 07:28 07/23/18 07:28 07/23/18 07:28 Exam: General: Alert and oriented 3 Skin:Normal color, no rash, no lesions. HEENT:EOM, pupils equal, round and reactive. Cardiovascular:Normal S1 & S2, no rubs, murmurs or gallops. No JVD. Pulse regular. Lungs: Basilar crackles on the left posterior thorax. Remainder of lungs were clear Abdomen:Soft, non-tender, no rigidity. Extremities:No deformity, no edema or tenderness, no joint swelling or clubbing. Neurological:Normal cognition; cranial nerves II through XII intact. Dizziness Gross motor weakness in bilateral legs difficulty with ambulating Pulses:Carotid and radial pulses normal +2. Rest of the physical exam is non contributory - Patient Status Disposition: Transfer Hospital Swing Bed Condition: Undetermined - Discharge Instructions Follow Up With: Raven Rhodes DO [Primary Care Provider] - (Appointment has been requested. Our offices will call with an appointment time and date. If you do not hear from us, please call and schedule an appointment within 7-10 days after discharge.)
[2018-07-23] MEDS: Furosemide 20 MG TABLET PO SCH (09:26)
[2018-07-23] MEDS: Famotidine 20 MG TABLET PO SCH (09:26)
[2018-07-23] MEDS: Magnesium Oxide 400 MG TABLET PO SCH (09:26)
[2018-07-23] MEDS: Cholecalciferol (D-3) 1,000 UNIT TABLET PO SCH (09:26)
[2018-07-23] MEDS: Multivit/Ca/Min/Fe/FA 1 TAB TABLET PO SCH (09:27)
[2018-07-23] MEDS: Insulin LISPRO 300 UNITS/3 ML VIAL SQ SCH (09:32)
--- NOTE | 2018-07-23 09:43 | Physician Discharge Referral ---
- Diagnosis (1) AIDP (acute inflammatory demyelinating polyneuropathy) Priority: Primary Status: Acute (2) Hyperkalemia Priority: Primary Status: Acute (3) CAD (coronary artery disease) Priority: Primary Status: Chronic (4) CKD (chronic kidney disease) Priority: Primary Status: Chronic (5) Bukys-rg-hselvoi kidney injury Priority: Primary Status: Acute (6) Stroke-like symptoms Priority: Primary Status: Acute (7) Type 2 diabetes mellitus Priority: Primary Status: Acute (8) DVT prophylaxis Priority: Primary Status: Acute - Transfer Medications Home Medications: Antiox#10/Om3/Dha/Epa/Lut/Zeax [I-Caps with Lutein-[place] 3 Sfg] 1 cap PO DAILY 07/08/17 [History] Aspirin [Lo-Dose Aspirin EC] 81 mg PO HS 07/08/17 [History] Atorvastatin [Lipitor] 40 mg PO HS 07/08/17 [History] Cholecalciferol (D-3) [Vitamin D] 5,000 unit PO DAILY 07/08/17 [History] Clopidogrel [Plavix] 75 mg PO HS 07/08/17 [History] Furosemide [Lasix] 20 mg PO DAILY 07/08/17 [History] Gabapentin [Neurontin] 300 mg PO HS 07/08/17 [History] Ranitidine HCl [Acid Supervisor Wood Room] 150 mg PO BID 07/08/17 [History] Carvedilol 12.5 mg PO BID 07/19/18 [History] Dutasteride 0.5 mg PO HS 07/19/18 [History] Insulin Aspart Prot/Insuln Asp [Novolog Mix 70-30 Vial] 30 - 60 unit SQ BID 07/19/18 [History] Magnesium Oxide [Magnesium] 400 mg PO BID 07/19/18 [History] Allergies/Adverse Reactions: Allergy/AdvReac Type Severity Reaction Status Date / Time clonidine AdvReac Nausea Verified 08/24/17 16:47 enalaprilat [From Vasotec] AdvReac Nausea Verified 08/24/17 16:47 fentanyl AdvReac Nausea Verified 08/24/17 16:47 lisinopril AdvReac Nausea Verified 08/24/17 16:47 naproxen AdvReac Nausea Verified 08/24/17 16:47 simvastatin AdvReac Nausea Verified 08/24/17 16:47 tramadol AdvReac Nausea Verified 08/24/17 16:47 - Respiratory Orders Smoking Cessation: Smoking cessation has been advised. For more information, call the [place] Tobacco Quit Line at 4-762-JPGP-NOW. - Rehabiliation Orders Rehab Potential: Good - Diet Orders Cardiac CERTIFICATION: I certify that the transfer of the above named patient to an Extended Care Facility is necessary for the continuing treatment of the diagnosis listed. The above information is true and accurate reflection of patient's current condition. Confidential - Redisclosure prohibited without a patient's written consent.
[2018-07-23 11:35] VITALS: BP 142/86
== END 2018-07-23 12:28 | disposition other institution (70) | DRG 95 ==
LOC: EMEROOARM 16:45 → 3BNU 16:45 → 2NENU 07-20 19:41
PROVIDERS: ADMIT Internal Medicine Nephrology; ATTEND Internal Medicine Nephrology

== ENCOUNTER 2018-09-13 12:31 | Observation (INO) ==
--- NOTE | 2018-09-13 13:49 | Emergency Department Note ---
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 He did have IVIG while he was in the hospital in June which seemed to alleviate his symptoms significantly and he was discharged home with physical therapy. Patient states that he did finish his physical therapy and has another course started on Wednesday because he does not believe his symptoms have gotten better. He states that he does believe that they are actually getting worse. He did have follow-up today with Dr. Lund but that appointment was canceled. Patient is also complaining of a productive cough but no shortness of breath. Also of right hip pain. He states the weakness is in both of his lower legs. He also complains of a tingling se nsation in his upper arms that he states is related to cervical spine injury. Patient states that he has had loose stools over the past 2 days. Pain Scale: 10 - Related Data Home Medications Medication Instructions Recorded Confirmed Antiox#10/Om3/Dha/Epa/Lut/Zeax 1 cap PO DAILY 07/08/17 09/13/18 [I-Caps with Lutein-[place] 3 Sfg] Aspirin [Lo-Dose Aspirin EC] 81 mg PO HS 07/08/17 09/13/18 Atorvastatin [Lipitor] 40 mg PO HS 07/08/17 09/13/18 Cholecalciferol (D-3) [Vitamin D] 1,000 unit PO DAILY 07/08/17 09/13/18 Clopidogrel [Plavix] 75 mg PO HS 07/08/17 09/13/18 Gabapentin [Neurontin] 300 mg PO HS 07/08/17 09/13/18 Ranitidine HCl [Acid Production Line Technician] 150 mg PO BID 07/08/17 09/13/18 Carvedilol 12.5 mg PO BID 07/19/18 09/13/18 Dutasteride 0.5 mg PO HS 07/19/18 09/13/18 Insulin Aspart Prot/Insuln Asp 30 - 60 unit SQ TID 07/19/18 09/13/18 [Novolog Mix 70-30 Vial] Magnesium Oxide [Magnesium] 400 mg PO BID 07/19/18 09/13/18 Famotidine [Pepcid] 10 mg PO BID 07/23/18 09/13/18 Finasteride [Proscar] 5 mg PO HS 07/23/18 09/13/18 Multivit/Ca/Min/Fe/FA [Thera M 1 each PO DAILY 07/23/18 09/13/18 Plus] Ondansetron ODT [Zofran ODT] 4 mg SL Q6HR PRN 07/23/18 09/13/18 Furosemide [Lasix] 20 mg PO Q48H 09/13/18 09/13/18 Allergies Allergy/AdvReac Type Severity Reaction Status Date / Time clonidine AdvReac Nausea Verified 09/13/18 16:10 enalaprilat [From Vasotec] AdvReac Nausea Verified 09/13/18 16:10 fentanyl AdvReac Nausea Verified 09/13/18 16:10 lisinopril AdvReac Nausea Verified 09/13/18 16:10 naproxen AdvReac Nausea Verified 09/13/18 16:10 simvastatin AdvReac Nausea Verified 09/13/18 16:10 tramadol AdvReac Nausea Verified 09/13/18 16:10 All systems ED: reviewed and negative except as stated. Review of Systems: As Per HPI Constitutional: Denies: fever Cardiovascular: Denies: chest pain, syncope Respiratory: Reports: cough, sputum production. Denies: dyspnea Gastrointestinal: Reports: diarrhea (yesterday). Denies: abdominal pain, nausea, vomiting, hematemesis, melena, hematochezia Musculoskeletal: Reports: other (Right hip pain. Patient denies any trauma.) Neurological: Reports: weakness (Lower extremities worse than upper extr emities.), other (Tingling sensation bilateral upper extremities) Past Medical History - Past Medical History Attestation: Yes The following information was validated with the patient. Source: patient Medical history: Reports: coronary artery disease, diabetes, hyperlipidemia, hypertension, renal disease, other Surgical history: Reports: orthopedic, other Psychiatric history: Reports: anxiety, depression, other - Social History Smoking Status: Never smoker Smokeless Tobacco Status: No Alcohol use: Reports: none Drug use: Reports: none Physical Exam - General Limitations: no limitations General appearance: alert, in no apparent distress - Head Head exam: atraumatic, normocephalic, normal inspection - Eye Eye exam: Present: normal appearance, PERRL, EOMI - ENT ENT exam: normal exam, normal oropharynx, mucous membranes dry - Neck Neck exam: Present: normal inspection, full ROM, trachea midline - Chest Chest inspection: Present: normal inspection, symmetric chest wall rise - Respiratory Respiratory exam: Present: normal lung sounds bilaterally. Absent: respiratory distress, accessory muscle use - Cardiovascular Cardiovascular exam: Present: regular rate, normal rhythm, normal heart sounds - Abdominal Exam Abdominal exam: Present: soft, Non-Tender. Absent: tenderness, distention, guarding, rebound, rigidity, organomegaly, Guthrie's sign, Rovsing's sign, tenderness at McBurney's Point - Extremities Exam Extremities exam: Present: full ROM, tenderness (To palpation of right sciatic notch area.), normal capillary refill. Absent: calf tenderness - Expanded Upper Extremity Exam Shoulder exam: Present: normal inspection, full ROM Arm exam: Present: normal inspection, full ROM Elbow exam: Present: normal inspection, full ROM. Absent: tenderness Forearm/Wrist exam: Present: normal inspection, full ROM. Absent: tenderness Hand exam: Present: normal inspection, full ROM Neurosensory exam: Normal: other (2/4 reflexes: Brachioradialis and triceps and biceps bilaterally) Vascular exam: Normal: capillary refill (Less than 2 seconds) - Expanded Lower Extremity Exam Hip/Pelvis exam: Present: tenderness (To palpation of right sciatic notch. Has 4 out of 5 muscle strength in hips bilaterally.). Absent: deformity, crepitus Upper leg exam: Present: normal inspection Knee exam: Present: normal inspection, full ROM (3/5 muscle strength) Lower leg exam: Present: normal inspection, full ROM (3/5 muscle strength) - Back Exam Back exam: Present: sciatic notch tenderness (R). Absent: CVA tenderness (R), CVA tenderness (L) - Neurological Exam Neurological exam: Present: alert, oriented X3 - Psychiatric Psychiatric exam: Present: normal affect, normal mood - Skin Skin exam: Present: warm, dry, intact, normal color. Absent: rash, cyanosis Course Course Narrative: Patient appears well resting in bed. Does have lower extremity weakness. Good reflexes in upper and lower extremities. Neurology was consult. They state they do not believe that this is GBS. Patient was found to be hyperkalemic. He is clinically dehydrated. Has a history of chronic kidney disease with a creatinine that has been stable. GFR is stable as well. We will provide patie nt with a normal saline bolus at this time and reevaluate his potassium after hydration. He has no signs of cardiac insult secondary to hyperkalemia. He does have a normal QRS. He does report generalized weakness. He states he has not had any falls at home. He is normotensive at this time. He does over the daughter states it is hard to take care of him because of his weakness. Patient is supposed to start PT OT again on Wednesday secondary to his weakness. I do not believe there is any respiratory compromise at this time. Lung sounds are clear heart tones are normal. We did get a chest x-ray as well as a hip x-ray. He does have pain to his right sciatic notch. No flank tenderness. Abdomen is soft nontender nondistended. Urine without signs of infection at this time. We will admit patient to the hospital at this time for hyperkalemia and generalized weakness. - Consultations Consultation #1: I spoke with Gabriel the CLAY MAKER for neurology. He states he will be up to see the Pt. Time: 14:20 Consultation #2: Dr. Bonilla accepted patient in stable condition. Time: 16:40 Vital Signs Temperature 98.1 F 09/13/18 12:34 Pulse Rate 62 09/13/18 12:34 Respiratory Rate 16 09/13/18 12:34 Blood Pressure 131/60 09/13/18 12:34 O2 Sat by Pulse Oximetry 94 09/13/18 12:34 Temperature 98.1 F 09/13/18 12:34 Pulse Rate 56 09/13/18 15:39 Respiratory Rate 11 09/13/18 15:39 Blood Pressure 123/59 09/13/18 15:39 O2 Sat by Pulse Oximetry 97 09/13/18 15:39 Oxygen Delivery Oxygen Delivery Room Air Medical Decision Making - Medical Records Medical records reviewed: Yes I reviewed the patient's medical records. - Lab Data Lab results reviewed: Yes I reviewed the patient's lab results. Result diagrams: 09/13/18 15:07 09/13/18 15:07 Lab Results 09/13/18 09/13/18 09/13/18 Range/Units 15:07 15:07 15:29 WBC 7.8 (4.3-11.1) K/mcL RBC 3.83 L (4.19-5.50) M/mcL Hgb 12.1 L (12.9-16.9) g/dL Hct 36.6 L (37.5-50.1) % MCV 95.6 (83.0-100.0) fL MCH 31.6 (28.0-33.3) pg MCHC 33.1 (31.6-35.5) g/dL RDW 13.4 (11.5-14.5) % Plt Count 233 (140-400) K/mcL MPV 9.2 L (9.4-12.4) fL Immature Gran % 0.5 (0-4) % Seg Neutrophils % 62.9 % Lymphocytes % 22.2 % Monocytes % 10.5 % Eosinophils % 3.3 % Basophils % 0.6 % Neutrophils # 4.9 (1.6-8.9) K/mcL Lymphocytes # 1.7 (0.6-4.6) K/mcL Monocytes # 0.8 (0.0-1.3) K/mcL Eosinophils # 0.3 (0.0-0.6) K/mcL Basophils # 0.1 (0.0-0.2) K/mcL Sodium 135 L (136-145) mEq/L Potassium 6.2 H (3.5-5.1) mEq/L Chloride 110 H (98-107) mEq/L Carbon Dioxide 16 L (23-29) mEq/L BUN 48 H (8-23) mg/dL Creatinine 2.44 H (0.70-1.30) mg/dL Est GFR ( Amer) 31 L (> 60) Est GFR (Non-Af Amer) 26 L (> 60) BUN/Creatinine Ratio 20 (6-26) Glucose 152 H (70-105) mg/dL Calculated Osmolality 296 (280-300) Calcium 9.8 (8.6-10.3) mg/dL Total Bilirubin 0.3 (0.3-1.0) mg/dL AST 13 (13-39) Units/L ALT 20 (7-52) Units/L Alkaline Phosphatase 42 (34-104) Units/L Serum Total Protein 7.0 (6.4-8.9) g/dL Albumin 4.0 (3.5-5.7) g/dL Globulin 3.0 (2.4-3.5) g/dL Albumin/Globulin Ratio 1.3 (1.1-2.2) Urine Color Yellow (Yellow) Urine Clarity Clear (Clear) Urine pH 6.0 (5.0-8.0) pH Units Ur Specific [place] 1.015 (1.010-1.025) Urine Protein Negative (Neg-Trace) mg/dL Urine Glucose (UA) Normal (Normal) mg/dL Urine Ketones Negative (Negative) mg/dL Urine Blood Negative (Negative) Urine Nitrite Negative (Negative) Urine Bilirubin Negative (Negative) Urine Urobilinogen Normal (Normal) mg/dL Ur Leukocyte Esterase Negative (Negative) Ur Culture Indicated? NO (NO) - Radiology Data Radiology results reviewed: Yes I reviewed the patient's radiology results. Chest X-Ray 09/13/18 14:12 IMPRESSION: No significant findings in the chest. D/ / Uri Barraza MD / Uri Barraza MD Interpreting Provider: Uri Barraza MD Hip X-Ray 09/13/18 14:13 IMPRESSION: No acute fracture or significant hip osteoarthrosis. D/ / Juancho Durand MD / Juancho Durand MD Interpreting Provider: Juancho Durand MD - EKG Data EKG #1 EKG attestation: Yes I reviewed and interpreted this EKG. EKG results narrative: Sinus bradycardia at a rate of 59. CT interval is 188. QRS duration is 90. QT is 378. QTC is 375. No signs of acute ischemia. Poor R-wave progression. No signs of WPW or [place]. No significant change from previous EKG dated 07/19/2018. Attestation Statement - Attestation Attestation: Dr. Kim note: Patient seen in conjunction with emergency medicine resident Alina Gonzales. Please see her charting for complete documentation. Assessment [id number] time with the patient and I agree with patient's treatment and disposition. Aggressive weakness for the last 5 days without fever nausea vomiting or diarrhea. No chest pain. Progressive lower extremity weakness which patient attributes to his Guillain-Dupuyer syndrome which clinically is not obstructive the case based on his presentation of improved symptoms today compared to yesterday and no loss of reflexes for lower extremity muscle strength. It is thought the patient's symptoms are more to generalized weakness. Well-appearing without focal findings on examination. This is supported by the neurology consult on the ER. All blood work and testing is been reviewed. EKG: normal sinus rhythm without acute injury pattern and no significant interval changes.
[2018-09-13] MEDS ORDERED: 0.9 % Sodium Chloride 500 ML IVC STA ×2 (14:54→16:20)
[2018-09-13 15:29] LABS: Basophils # 0.1 K/mcL (0.0-0.2); Basophils % 0.6 %; Eosinophils # 0.3 K/mcL (0.0-0.6); Eosinophils % 3.3 %; Hematocrit 36.6 % (37.5-50.1); Hemoglobin 12.1 g/dL (12.9-16.9); Immature Granulocytes % 0.5 % (0-4); Lymphocytes # 1.7 K/mcL (0.6-4.6); Lymphocytes % 22.2 %; Mean Corpuscular HGB Conc 33.1 g/dL (31.6-35.5); Mean Corpuscular Hemoglobin 31.6 pg (28.0-33.3); Mean Corpuscular Volume 95.6 fL (83.0-100.0); Mean Platelet Volume 9.2 fL (9.4-12.4); Monocytes # 0.8 K/mcL (0.0-1.3); Monocytes % 10.5 %; Neutrophils # 4.9 K/mcL (1.6-8.9); Platelet Count 233 K/mcL (140-400); Red Blood Count 3.83 M/mcL (4.19-5.50); Red Cell Distribution Width 13.4 % (11.5-14.5); Segmented Neutrophils % 62.9 %; White Blood Count 7.8 K/mcL (4.3-11.1)
--- NOTE | 2018-09-13 15:30 | Neurology - Consult Note ---
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 His strength is 4/5 bilaterally upper and lower extremities, however, he appears to fatigue easily. DTR's are intact and there are no focal findings. He is not in any respiratory distress. 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 I suspect that his weakness was most likely exacerbated by his acute GI illness with a 3-4 day period of diarrhea. Further, it is not unusual for a diminished activity tolerance and a prolonged recovery with a GBS diagnosis. Nonetheless, I do not feel an LP is warranted at this time but I will order an MRI of the cervical spine to evaluate for cervical myelopathy. We are recommending PT/OT evaluation (inpatient rehab may be beneficial) and medical management. History of Present Illness Chief complaint: persistent weakness s/p GBS dx in June 2018 HPI: Mr. 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 He presents today to the ED with a concern for persistent weakness and diminished functional capacity since being discharged for GBS. He notes that he was supposed to have a neurology follow-up today but that it was cancelled therefore, he came to the ED seeking evaluation as his weakness has n ot improved as quickly as he expected. He notes that he has been receiving outpatient physical therapy since discharge and at one point was ambulatory with just a cane. However, over the last three days he has grown increasingly weak in the bilateral legs and is now requiring a walker. He states that he is worried that his symptoms are getting worse. He admits to having diarrhea x 3-4 days all day long prior to seeking evaluation today. He denies any focal weakness, facial asymmetry, dyspnea, dysphagia, or dysarthria. He admits to chornic b/l arm tingling which has not worsened from baseline and he is also having right hip pain with range of motion but not weight bearing. Hip x-ray h as been ordered and is pending. CBC showing a stable chronic anemia. Chemistry panel pending. Vitals reviewed, he is afebrile and hemodynamically stable. Past Med Surg Social Fam HX - Past Medical History Medical history: coronary artery disease, diabetes, hyperlipidemia, hypertension, renal disease, other Additional medical history: GBS Psychiatric history: anxiety, depression, other - Past Surgical History Surgical History: orthopedic, other Additional surgical history: B/L Shoulder,. cervical disc - Social History Smoking Status: Never smoker Smokeless Tobacco Status: No Alcohol use: none Drug use: none - Family History Father Family Member Ethnicity: Unknown Living Status: Hx Family Cancer: Yes (possible leukemia) Mother Family Member Ethnicity: Non- Living Status: Hx Family Cardiac Disorders: Yes (HEART PROBLEMS) Hx Family Respiratory Disorders: No Hx Family Cancer: No Hx Family GI Disorders: No Hx Family Endocrine Disorder: Yes (DM) Hx Family Neuromuscular Disorders: No Hx Family Neurologic Disorders: No Hx Family HEENT Disorders: No Hx Family Autoimmune Disorders: No Medications and Allergies Antiox#10/Om3/Dha/Epa/Lut/Zeax [I-Caps with Lutein-[place] 3 Sfg] 1 cap PO DAILY 07/08/17 [History] Aspirin [Lo-Dose Aspirin EC] 81 mg PO HS 07/08/17 [History] Atorvastatin [Lipitor] 40 mg PO HS 07/08/17 [History] Cholecalciferol (D-3) [Vitamin D] 1,000 unit PO DAILY 07/08/17 [History] Clopidogrel [Plavix] 75 mg PO HS 07/08/17 [History] Furosemide [Lasix] 20 mg PO DAILY 07/08/17 [History] Gabapentin [Neurontin] 300 mg PO HS 07/08/17 [History] Ranitidine HCl [Acid National Account Representative] 150 mg PO BID 07/08/17 [History] Carvedilol 12.5 mg PO BID 07/19/18 [History] Dutasteride 0.5 mg PO HS 07/19/18 [History] Insulin Aspart Prot/Insuln Asp [Novolog Mix 70-30 Vial] 30 - 60 unit SQ TID 07/19/18 [History] Magnesium Oxide [Magnesium] 400 mg PO BID 07/19/18 [History] Famotidine [Pepcid] 10 mg PO BID 07/23/18 [History] Finasteride [Proscar] 5 mg PO HS 07/23/18 [History] Multivit/Ca/Min/Fe/FA [Thera M Plus] 1 each PO DAILY 07/23/18 [History] Ondansetron ODT [Zofran ODT] 4 mg SL Q6HR PRN 07/23/18 [History] Furosemide [Lasix] 20 mg PO Q48H 09/13/18 [History] Allergy/AdvReac Type Severity Reaction Status Date / Time clonidine AdvReac Nausea Verified 09/13/18 16:10 enalaprilat [From Vasotec] AdvReac Nausea Verified 09/13/18 16:10 fentanyl AdvReac Nausea Verified 09/13/18 16:10 lisinopril AdvReac Nausea Verified 09/13/18 16:10 naproxen AdvReac Nausea Verified 09/13/18 16:10 simvastatin AdvReac Nausea Verified 09/13/18 16:10 tramadol AdvReac Nausea Verified 09/13/18 16:10 All Systems: The remainder of the systems were reviewed and are negative Review of Systems: REVIEW OF SYSTEMS GENERAL: Negative for any fevers, chills NEUROLOGIC: Negative for any blurry vision, blind spots, double vision, facial asymmetry, dysphagia, dysarthria, hemiparesis, hemisensory deficits, vertigo, ataxia, seizures, paralysis, tingling, numbness, unilateral weakness or numbness/tingling, discoordination, disequilibrium POSITIVE-decreased activity tolerance, recent diagnosis of Guillain-[place]; reporting persistent weakness in all 4 extremities HEENT: Negative for any head trauma, neck trauma, neck stiffness CARDIAC: Negative for any chest pain, dyspnea or chest pain PULMONARY: Negative for any shortness of breath, wheezing GASTROINTESTINAL: Negative for any abdominal pain, nausea, vomiting POSITIVE- he is reporting diarrhea for approximately 3-4 days prior to evaluation in the ED MUSCULOSKELETAL: POSITIVE-right hip pain; worse with range of motion. Loss of strength in all 4 extremities since June 2018 and decreased activity tolerance Physical Examination - Vital Signs Vital Signs: Initial Vital Signs Temp Pulse Resp BP Pulse Ox 98.1 F 62 16 131/60 94 09/13/18 12:34 09/13/18 12:34 09/13/18 12:34 09/13/18 12:34 09/13/18 12:34 - Exam Exam: Examination: General Examination: *CONSTITUTIONAL: Alert and oriented x3, no acute distress *GENERAL APPEARANCE OF PATIENT generally ill-appearing elderly male *EYES: pupils equal, round, reactive to light and accommodation, conjunctiva clear without masses or ulcerations, fundi normal. *CARDIOVASCULAR: RRR, no peripheral edema, distal temperature normal, dorsalis pedis pulses normal. 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 No abnormal movements, fasciculations or atrophy identified. Neurological: *ORIENTATION to person, situation, time and place *LANGUAGE AND FUNCTION no significant aphasia or dysarthia was noted. *ATTENTION AND CONCENTRATION are normal *LANGUAGE FUNCTION no significant aphasia or dysarthia was noted. *FUND OF KNOWLEDGE aware of current events, past history, vocabulary *MENTAL attention span and concentration normal. *CN II optic fundi were normal, no papilledema noted. *CN III,IV, PERRLA extraocular eye movements were full, no nystagmus and no ptosis noted. *CN V shows normal sensation and jaw opens symmetrically. *CN VII shows normal facial movement symmetrically, upper and lower bilaterally. *CN VIII shows no significant hearing loss on exam *CN IX-Xpalate elevated symmetrically *CN XI normal strength in the sternocleidomastoid muscles, symmetrical shoulder shrugging. *CN XII tongue protruded in the midline, with normal strength and movement. *SENSORY EXAMINATION light touch intact *REFLEXES: deep tendon reflexes were normal and symmetrical and brisk, grade 3/4 diffusely, no pathological reflexes were noted. *CEREBELLAR TESTING normal finger to nose, heel/knee/warren *PAIN LEVEL 2/10 - right hip pain; worse with movement of right leg and ROM Results - Laboratory Findings CBC and BMP: 09/13/18 15:07 09/13/18 15:07 Consult Discharge Plan - Plan Referrals: Raven Rhodes, DO [Primary Care Provider] -
[2018-09-13] MEDS: *HR* OxyCODONE/APAP 5/325 TABLET PO STA ×2 (15:35→15:41)
[2018-09-13 15:39] LABS: Bilirubin,Urine Negative (Negative); Blood,Urine Negative (Negative); Clarity,Urine Clear (Clear); Color,Urine Yellow (Yellow); Glucose,Urine (UA) Normal (Normal); Ketones,Urine Negative (Negative); Leukocyte Esterase,Urine Negative (Negative); Nitrite,Urine Negative (Negative); Protein,Urine Negative (Neg-Trace); Specific Gravity,Urine 1.015 (1.010-1.025); Urobilinogen,Urine Normal (Normal)
[2018-09-13 15:48] LABS: Albumin/Globulin Ratio 1.3 (1.1-2.2); Bilirubin,Total 0.3 mg/dL (0.3-1.0); Calcium 9.8 mg/dL (8.6-10.3); Potassium 6.2 mEq/L (3.5-5.1)
[2018-09-13 17:28] LABS: Calcium 9.2 mg/dL (8.6-10.3); Potassium 6.1 mEq/L (3.5-5.1)
[2018-09-13] MEDS ORDERED: Calcium Gluconate 1gm/50mL 1 GM/50 ML BAG IVPB ONE ×2 (17:30→17:34)
[2018-09-13] MEDS ORDERED: Ondansetron 4 MG/2 ML VIAL IVP PRN (17:35)
[2018-09-13] MEDS ORDERED: Naloxone 0.4 MG/ML INJ IVP PRN (17:35)
[2018-09-13] MEDS ORDERED: Dextrose Gel 15 GM/37.5 ML TUBE PO PRN ×2 (17:38)
[2018-09-13] MEDS ORDERED: D5% in Water 1,000 ML IVC PRN (17:38)
[2018-09-13] MEDS ORDERED: *HR* Dextrose 50 % in Water (Syg) 50 ML SYRINGE IVP PRN (17:38)
[2018-09-13] MEDS ORDERED: Sodium Bicarbonate 150 MEQ in D5% in Water 1,000 ML IVC SCH (17:45)
--- NOTE | 2018-09-13 17:45 | Internal Med History&Physical ---
Date of Encounter: 09/13/18 Time of Encounter: 18:00 Internal Medicine - H&P: HPI Chief complaint: weakness Admitted From: Home Plans for Post Hospital Care: Home History of present illness: Mr. Mesa is a 78 year old male with history of GBS recently diagnosed status post IVIG, CJD stage IV, CAD status post PCI, HTN, activity who came into the hospital due to generalized weakness. Patient was diagnosed with GBS back in June and then he was discharged to rehabilitation. His symptoms of weakness improved however did not resolve completely. 3 days ago, he started to experience 3-4 watery, nonbloody, and no mucus bowel movements associated with generalized abdominal pain and cramping. he denies fever or night sweats but he endorsed chills and feeling cold. He also had nausea but no emesis with his diarrhea. He also endorsed dizziness and lightheadedness for the past few days. He denied any recent sick contacts, travel, recent antibiotic use or recent hospitalization. She denied chest pain, shortness of breath, palpitation. Stat neurology consult was placed given the patient concern of worsening of his Guillain-[place] syndrome. Neurology evaluated the patient and they recommended MRI of the cervical spine but no suspicion of GBS flare. Upon presentation, patient was hemodynamically stable. Afebrile. Blood work was significant for hyperkalemia with potassium 6.2, creatinine 2.4. EKG did not show any ischemic or changes associated with hyperkalemia. Chest x-ray did not reveal any acute abnormality. Patient received 2 L of IV fluids in the emergency department. His UA was negative. Past Med Surg Social Fam HX - Past Medical History Medical history: coronary artery disease, diabetes, hyperlipidemia, hypertension, renal disease, other Additional medical history: GBS Psychiatric history: anxiety, depression, other - Past Surgical History Surgical History: orthopedic, other Additional surgical history: B/L Shoulder,. cervical disc - Social History Smoking Status: Never smoker Smokeless Tobacco Status: No Alcohol use: none Drug use: none - Family History Father Family Member Ethnicity: Unknown Living Status: Hx Family Cancer: Yes (possible leukemia) Mother Family Member Ethnicity: Non- Living Status: Hx Family Cardiac Disorders: Yes (HEART PROBLEMS) Hx Family Respiratory Disorders: No Hx Family Cancer: No Hx Family GI Disorders: No Hx Family Endocrine Disorder: Yes (DM) Hx Family Neuromuscular Disorders: No Hx Family Neurologic Disorders: No Hx Family HEENT Disorders: No Hx Family Autoimmune Disorders: No - Additional Family History Additional family history: No family history of malignancies Internal Medicine - H&P: Meds Antiox#10/Om3/Dha/Epa/Lut/Zeax [I-Caps with Lutein-[place] 3 Sfg] 1 cap PO DAILY 07/08/17 [History] Aspirin [Lo-Dose Aspirin EC] 81 mg PO HS 07/08/17 [History] Atorvastatin [Lipitor] 40 mg PO HS 07/08/17 [History] Cholecalciferol (D-3) [Vitamin D] 1,000 unit PO DAILY 07/08/17 [History] Clopidogrel [Plavix] 75 mg PO HS 07/08/17 [History] Gabapentin [Neurontin] 300 mg PO HS 07/08/17 [History] Ranitidine HCl [Acid Command Post Craftsman] 150 mg PO BID 07/08/17 [History] Carvedilol 12.5 mg PO BID 07/19/18 [History] Dutasteride 0.5 mg PO HS 07/19/18 [History] Insulin Aspart Prot/Insuln Asp [Novolog Mix 70-30 Vial] 30 - 60 unit SQ TID 07/19/18 [History] Magnesium Oxide [Magnesium] 400 mg PO BID 07/19/18 [History] Famotidine [Pepcid] 10 mg PO BID 07/23/18 [History] Finasteride [Proscar] 5 mg PO HS 07/23/18 [History] Multivit/Ca/Min/Fe/FA [Thera M Plus] 1 each PO DAILY 07/23/18 [History] Ondansetron ODT [Zofran ODT] 4 mg SL Q6HR PRN 07/23/18 [History] Furosemide [Lasix] 20 mg PO Q48H 09/13/18 [History] Allergy/AdvReac Type Severity Reaction Status Date / Time clonidine AdvReac Nausea Verified 09/13/18 16:10 enalaprilat [From Vasotec] AdvReac Nausea Verified 09/13/18 16:10 fentanyl AdvReac Nausea Verified 09/13/18 16:10 lisinopril AdvReac Nausea Verified 09/13/18 16:10 naproxen AdvReac Nausea Verified 09/13/18 16:10 simvastatin AdvReac Nausea Verified 09/13/18 16:10 tramadol AdvReac Nausea Verified 09/13/18 16:10 All Systems PM: A 10-system review of systems was performed and is negative for pertinent findings except as documented above in the HPI. - Constitutional Vitals: Temp Pulse Resp BP Pulse Ox 98.1 F 58 13 139/66 99 09/13/18 12:34 09/13/18 17:34 09/13/18 17:34 09/13/18 17:34 09/13/18 17:34 Exam: General: Patient is alert, oriented 3. Head: Atraumatic, normal inspection, normocephalic. Eye: EOMI, PERRLA, no scleral icterus noted. ENT: Mucous membranes moist. No odontogenic infection noted. Neck: Normal inspection, no meningismus. Respiratory: No respiratory distress, rhonchi, or wheezes noted. Cardiovascular: Regular rate and regular rhythm, S1 and S2 audible. No murmurs, rubs, or gallops. GI: Soft, nondistended, normal bowel sounds. Extremities:No joint swelling, pedal edema, or tenderness noted. Neurological: Alert, oriented 3, no focal deficits. Normal tendon reflexes in the knees, range of motion is normal with no weakness. +5 strength in upper and lower extremities Psychiatric: normal affect, normal mood. Skin: Dry, intact, warm. Normal color. No rashes. Internal Med - H&P Results - Labs CBC & Chem 7: 09/13/18 15:07 09/13/18 16:45 Labs: Short CBC 09/13/18 Range/Units 15:07 WBC 7.8 (4.3-11.1) K/mcL Hgb 12.1 L (12.9-16.9) g/dL Hct 36.6 L (37.5-50.1) % Plt Count 233 (140-400) K/mcL Neutrophils # 4.9 (1.6-8.9) K/mcL BMP 09/13/18 09/13/18 15:07 16:45 Sodium 135 L 137 Potassium 6.2 H 6.1 H Chloride 110 H 112 H Carbon Dioxide 16 L 19 L BUN 48 H 47 H Creatinine 2.44 H 2.36 H Glucose 152 H 136 H Calcium 9.8 9.2 Liver Function 07/16/19 Range/Units 15:07 Total Bilirubin 0.3 (0.3-1.0) mg/dL AST 13 (13-39) Units/L ALT 20 (7-52) Units/L Alkaline Phosphatase 42 (34-104) Units/L Albumin 4.0 (3.5-5.7) g/dL Urine 09/13/18 Range/Units 15:29 Urine Color Yellow (Yellow) Urine Clarity Clear (Clear) Urine pH 6.0 (5.0-8.0) pH Units Ur Specific [place] 1.015 (1.010-1.025) Urine Protein Negative (Neg-Trace) mg/dL Urine Glucose (UA) Normal (Normal) mg/dL - EKG Data -: EKG Interpreted by Myself EKG shows normal: sinus rhythm Rate: normal - EKG Data Prior EKG available for review: yes When compared to previous EKG: there are significant changes, there is no significant change - Impressions ITS Impressions Chest X-Ray 09/13/18 14:12 IMPRESSION: No significant findings in the chest. D/ / Uri Barraza MD / Uri Barraza MD Interpreting Provider: Uri Barraza MD Hip X-Ray 09/13/18 14:13 IMPRESSION: No acute fracture or significant hip osteoarthrosis. 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 Mesa is a 78 year old male with history of GBS recently diagnosed status post IVIG, CJD stage IV, CAD status post PCI, HTN, activity who came into the hospital due to generalized weakness. His symptoms are managed as following: Generalized weakness: - 2/2 his dehydration, diarrhea and hyperkalemia - We will rule out infectious etiology with blood cultures, urine cultures and GI panel - Check CPK to r/u rhabdo Hyperkalemia: - Likely2/2 ALEX and acidosis. Potassium is 6.2 trended to 6.1. No EKG changes. - We will give 1 dose of Kayexalate, started the patient on bicarbonate drip. - Check BMP in 3 hours and tomorrow. - 1 g of calcium gluconate was also given Diarrhea: - Associated with abdominal pain, CT abdomen and pelvis is pending. - Patient is afebrile, has no leukocytosis. - We will check GI panel, continue IV fluid as above. ALEX on CKD stage IV: - Cr is 2.4, BL 2.1. Likely prerenal due to diarrhea and dehydration. - continue IVF, monitor I&O, renal diet. - Nephrology consult placed. GBS: - No concern for a flareup, neurology evaluated - MRI of the spine is ordered. IDDM: - on 70/30 at home 30-40 unites BID - will start with levemir 22u qhs and MSSI, Bgm check TIAAC. CAD status post PCI: - Continue home medication DVT ppx" Heparin sc - Time Spent With Patient Total time spent is greater than 50% in coordination of care (as documented) at patient's floor/unit and/or counseling patient:
[2018-09-13] MEDS: *HR* Heparin 5,000 UNIT/ML VIAL SQ SCH (18:46)
[2018-09-13 20:12] LABS: Basophils # 0.1 K/mcL (0.0-0.2); Basophils % 0.7 %; Eosinophils # 0.3 K/mcL (0.0-0.6); Eosinophils % 4.2 %; Hematocrit 38.3 % (37.5-50.1); Hemoglobin 12.5 g/dL (12.9-16.9); Immature Granulocytes % 0.1 % (0-4); Lymphocytes # 1.9 K/mcL (0.6-4.6); Lymphocytes % 27.2 %; Mean Corpuscular HGB Conc 32.6 g/dL (31.6-35.5); Mean Corpuscular Hemoglobin 31.8 pg (28.0-33.3); Mean Corpuscular Volume 97.5 fL (83.0-100.0); Mean Platelet Volume 9.3 fL (9.4-12.4); Monocytes # 0.7 K/mcL (0.0-1.3); Monocytes % 9.7 %; Platelet Count 237 K/mcL (140-400); Red Blood Count 3.93 M/mcL (4.19-5.50); Red Cell Distribution Width 13.2 % (11.5-14.5); Segmented Neutrophils % 58.1 %; White Blood Count 6.9 K/mcL (4.3-11.1)
[2018-09-13 21:19] LABS: Calcium 9.8 mg/dL (8.6-10.3); Potassium 5.7 mEq/L (3.5-5.1)
[2018-09-13] MEDS ORDERED: *HR* OxyCODONE Immed Rel 5 MG TABLET PO ONE (22:09)
[2018-09-13] MEDS: Insulin DETEMIR 100 UNIT/ML X5UNITS SQ SCH (23:25)
[2018-09-13 23:40] LABS: Adenovirus F 40/41 PCR Not detected (Not detect); Astrovirus PCR Not detected (Not detect); C.difficile Toxin A/B Gene PCR Not detected (Not detect); Campylobacter by PCR Not detected (Not detect); Cryptosporidium by PCR Not detected (Not detect); Cyclospora cayetanensis PCR Not detected (Not detect); E. coli O157 by PCR Not detected (Not detect); Entamoeba histolytica PCR Not detected (Not detect); Enteroaggregative E.coli(EAEC) Not detected (Not detect); Enteropathogenic E.coli(EPEC) Not detected (Not detect); Enterotoxigenic E.coli (ETEC) Not detected (Not detect); Giardia lamblia PCR Not detected (Not detect); Norovirus GI/GII PCR Not detected (Not detect); Plesiomonas shigelloides PCR Not detected (Not detect); Rotavirus A PCR Not detected (Not detect); Salmonella PCR Not detected (Not detect); Sapovirus PCR Not detected (Not detect); Shig/EnteroinvasiveE coli EIEC Not detected (Not detect); Shigalike tox-prod E coli STEC Not detected (Not detect); Vibrio PCR Not detected (Not detect); Vibrio cholerae PCR Not detected (Not detect); Yersinia enterocolitica PCR Not detected (Not detect)
[2018-09-14] MEDS: *HR* Heparin 5,000 UNIT/ML VIAL SQ SCH ×2 (05:45→17:02)
[2018-09-14 06:49] LABS: Potassium 5.6 mEq/L (3.5-5.1)
--- NOTE | 2018-09-14 10:24 | Neurology Progress Note ---
Date of Encounter: 09/14/18 Time of Encounter: 10:20 Assessment and Plan (1) Generalized weakness Current Visit: No Status: Acute Recent diagnosis and treatment of Guillain-[place] Was participating in rehabilitation and strength improving; he was ambulatory with a cane Over the last 3 days he has had worsening bilateral leg weakness and is now walker dependent Overnight his leg weakness persists but has not worsened and there are no new neurological deficits The neurological exam is unchanged no focal findings and 4/5 strength in all muscle groups of the upper and lower extremities and DTR's are intact throughout He has a know h/o a previous Cervical spine surgery d/t cervical myelopathy Previous C-spine imaging reveals stenosis With preserved DTRs I do not expect an inflammatory demyelinating polyneuropathy as the cause of his weakness. However, cervical myelopathy cannot be fully excluded. As such an MRI of the cervical spine has been ordered and is pending. Further recommendations are pending cervical spine imaging. Continue with m edical and supportive care. Continue PT and OT. Subjective Principal diagnosis: Bilateral leg weakness Interval history: The patient was seen in follow-up today for evaluation of generalized bilateral leg weakness. In brief he is an 78-year-old male with a recent diagnosis and treatment for Guillain-[place] in July [id number]. While he notes his weakness has improved since his treatment of GBS he returned yesterday after experiencing increasing weakness and fatigue x 3 days in the setting of a GI illness. This morning the patient states that he feels about the same as yesterday on presentation. He denies any new neurological deficits developing overnight. Currently he is resting comfortably and in no acute distress and alert and oriented 3. At this juncture if the MRI of the cervical spine to assess for cervical myelopathy is pending. Objective - Constitutional Vitals: Temp Pulse Resp BP Pulse Ox 98.9 F 59 16 128/70 97 09/14/18 06:37 09/14/18 06:37 09/14/18 06:37 09/14/18 06:37 09/14/18 06:37 Exam: Examination: General Examination: *CONSTITUTIONAL: Alert and oriented x3, no acute distress *GENERAL APPEARANCE OF PATIENT generally ill-appearing elderly male *EYES: pupils equal, round, reactive to light and accommodation, conjunctiva clear without masses or ulcerations, fundi normal. *CARDIOVASCULAR: RRR, no peripheral edema, distal temperature normal, dorsalis pedis pulses normal. 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 No abnormal m ovements, fasciculations or atrophy identified. Neurological: *ORIENTATION to person, situation, time and place *LANGUAGE AND FUNCTION no significant aphasia or dysarthia was noted. *ATTENTION AND CONCENTRATION are normal *LANGUAGE FUNCTION no significant aphasia or dysarthia was noted. *FUND OF KNOWLEDGE aware of current events, past history, vocabulary *MENTAL attention span and concentration normal. *CN II optic fundi were normal, no papilledema noted. *CN III,IV, PERRLA extraocular eye movements were full, no nystagmus and no ptosis noted. *CN V shows normal sensation and jaw opens symmetrically. *CN VII shows normal facial movement symmetrically, upper and lower bilaterally. *CN VIII shows no significant hearing loss on exam *CN IX-Xpalate elevated symmetrically *CN XI normal strength in the sternocleidomastoid muscles, symmetrical shoulder shrugging. *CN XII tongue protruded in the midline, with normal strength and movement. *SENSORY EXAMINATION light touch intact *REFLEXES: deep tendon reflexes were normal and symmetrical and brisk, grade 3/4 diffusely, no pathological reflexes were noted. *CEREBELLAR TESTING normal finger to nose, heel/knee/warren *PAIN LEVEL 0/10 Results - Laboratory Findings CBC and BMP: 09/13/18 20:00 09/14/18 05:34 Abnormal lab findings: Abnormal lab results RBC 3.93 M/mcL (4.19-5.50) L 09/13/18 20:00 Hgb 12.5 g/dL (12.9-16.9) L 09/13/18 20:00 Hct 36.6 % (37.5-50.1) L 09/13/18 15:07 MPV 9.3 fL (9.4-12.4) L 09/13/18 20:00 Sodium 135 mEq/L (136-145) L 09/13/18 15:07 Potassium 5.6 mEq/L (3.5-5.1) H 09/14/18 05:34 Chloride 108 mEq/L (98-107) H 09/14/18 05:34 Carbon Dioxide 20 mEq/L (23-29) L 09/14/18 05:34 BUN 40 mg/dL (8-23) H 09/14/18 05:34 Creatinine 2.32 mg/dL (0.70-1.30) H 09/14/18 05:34 Est GFR ( Amer) 33 (> 60) L 09/14/18 05:34 Est GFR (Non-Af Amer) 27 (> 60) L 09/14/18 05:34 Glucose 194 mg/dL (70-105) H 09/14/18 05:34 POC Glucose 101 mg/dL (70-99) H 09/13/18 20:44 Calculated Osmolality 301 (280-300) H 09/14/18 05:34 Consult Discharge Plan - Plan Referrals: Raven Rhodes DO [Primary Care Provider] -
--- NOTE | 2018-09-14 12:02 | Nephrology Consult Note ---
Date of Encounter: 09/14/18 Time of Encounter: 12:00 Assessment and Plan (1) Xipee-pk-gkuorlk kidney injury Current Visit: No Status: Acute The patient has mild acute kidney injury on chronic kidney disease. He is pretty close to his baseline renal function. I suspect etiology is secondary to decreased oral intake along with diarrhea. He reports that his nausea is improving and his diarrhea is also improving. I recommend gentle hydration to see if his renal function returns back to baseline. I recommend avoiding nephrotoxic agents. I also recommend adjusting medications for renal function. No need for a renal biopsy or hemodialysis at this time. Qualifiers: Acute renal failure type: unspecified Chronic kidney disease stage: stage 3 (moderate) Qualified Code(s): N17.9 - Acute kidney failure, unspecified; N18.3 - Chronic kidney disease, stage 3 (moderate) (2) Hyperkalemia Current Visit: Yes Status: Acute Mild hyperkalemia that should improve with medical management will give low-dose Kayexalate along with IV saline (3) Weakness Current Visit: Yes Status: Acute (4) Hypertension Current Visit: Yes Status: Chronic Titrate blood pressure medications needed Qualifiers: Hypertension type: essential hypertension Qualified Code(s): I10 - Essential (primary) hypertension (5) Insulin-requiring or dependent type II diabetes mellitus Current Visit: Yes Status: Chronic Per the primary team. History of Present Illness - Reason for Consult Consult date: 09/14/18 Acute Kidney Injury, Chronic Kidney Disease, hyperkalemia - Chief Complaint ALEX on CKD hyperkalemia. - History of Present Illness Mr. 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 The time my evaluation his biggest complaint was pain in his right hip and weakness more so in his hips. He denies chest pain, he denies dyspnea, he denies vomiting, he does have some nausea and some diarrhea. [facility] consult secondary to the patient having hyperkalemia along with acute kidney injury on chronic kidney disease. Past Med Surg Social Fam HX - Past Medical History Medical history: coronary artery disease, diabetes, hyperlipidemia, hyp ertension, renal disease, other Additional medical history: GBS Psychiatric history: anxiety, depression, other - Past Surgical History Surgical History: orthopedic, other Additional surgical history: B/L Shoulder,. cervical disc - Social History Smoking Status: Never smoker Smokeless Tobacco Status: No Alcohol use: none Drug use: none - Family History Father Family Member Ethnicity: Unknown Living Status: Hx Family Cancer: Yes (possible leukemia) Mother Family Member Ethnicity: Non- Living Status: Hx Family Cardiac Disorders: Yes (HEART PROBLEMS) Hx Family Respiratory Disorders: No Hx Family Cancer: No Hx Family GI Disorders: No Hx Family Endocrine Disorder: Yes (DM) Hx Family Neuromuscular Disorders: No Hx Family Neurologic Disorders: No Hx Family HEENT Disorders: No Hx Family Autoimmune Disorders: No Medications and Allergies Antiox#10/Om3/Dha/Epa/Lut/Zeax [I-Caps with Lutein-Wing 3 Sfg] 1 cap PO DAILY 07/08/17 [History] Aspirin [Lo-Dose Aspirin EC] 81 mg PO HS 07/08/17 [History] Atorvastatin [Lipitor] 40 mg PO HS 07/08/17 [History] Cholecalciferol (D-3) [Vitamin D] 1,000 unit PO DAILY 07/08/17 [History] Clopidogrel [Plavix] 75 mg PO HS 07/08/17 [History] Gabapentin [Neurontin] 300 mg PO HS 07/08/17 [History] Ranitidine HCl [Acid Publishing Agent] 150 mg PO BID 07/08/17 [History] Carvedilol 12.5 mg PO BID 07/19/18 [History] Dutasteride 0.5 mg PO HS 07/19/18 [History] Insulin Aspart Prot/Insuln Asp [Novolog Mix 70-30 Vial] 30 - 60 unit SQ TID 07/19/18 [History] Magnesium Oxide [Magnesium] 400 mg PO BID 07/19/18 [History] Famotidine [Pepcid] 10 mg PO BID 07/23/18 [History] Finasteride [Proscar] 5 mg PO HS 07/23/18 [History] Multivit/Ca/Min/Fe/FA [Thera M Plus] 1 each PO DAILY 07/23/18 [History] Ondansetron ODT [Zofran ODT] 4 mg SL Q6HR PRN 07/23/18 [History] Furosemide [Lasix] 20 mg PO Q48H 09/13/18 [History] Allergy/AdvReac Type Severity Reaction Status Date / Time clonidine AdvReac Nausea Verified 09/13/18 16:10 enalaprilat [From Vasotec] AdvReac Nausea Verified 09/13/18 16:10 fentanyl AdvReac Nausea Verified 09/13/18 16:10 lisinopril AdvReac Nausea Verified 09/13/18 16:10 naproxen AdvReac Nausea Verified 09/13/18 16:10 simvastatin AdvReac Nausea Verified 09/13/18 16:10 tramadol AdvReac Nausea Verified 09/13/18 16:10 Review of Systems All Systems: reviewed and no additional remarkable complaints except as stated (As documented in the history of present illness) Exam - Vital Signs Vital signs: Initial Vital Signs Temp Pulse Resp BP Pulse Ox 98.1 F 62 16 131/60 94 09/13/18 12:34 09/13/18 12:34 09/13/18 12:34 09/13/18 12:34 09/13/18 12:34 Vital Signs - Last 8 Hours Temp Pulse Resp BP Pulse Ox 09/14/18 10:41 97.8 F 75 12 156/67 95 09/14/18 06:37 98.9 F 59 16 128/70 97 09/14/18 04:13 98.3 F 62 17 137/65 95 Intake and Output 09/13/18 09/14/18 09/14/18 23:59 07:59 15:59 Intake Total 1000 / 1000 240 / 240 Output Total 200 / 200 Balance 1000 / 1000 -200 / 40 240 / 40 Intake: IV Fluids 1000 / 1000 0.9 % Sodium Chloride 500 ML @ 1000 / 1000 999 mls/hr IVC .Q31M [facility] Rx#: [id number] Oral 240 / 240 Output: Urine 200 / 200 Other: Meal Breakfast Percent of Meal Consumed 100% Stool Size Moderate Stool Consistency loose liquid Stool Color Brown Yellow # Bowel Movements 1 Weight 91.1 kg Blood Glucose* 101 178 244 Patient Weight 09/14/18 23:59 Weight 91.1 kg - General Appearance General appearance: well-developed, well-nourished EENT: ATNC Neck: supple Respiratory: course breath sounds Cardiology: no edema, regular rate Gastrointestinal: no tenderness Integumentary: warm and dry Neurologic: alert and oriented x3 Musculoskeletal: no cyanosis Psychiatric: mood/affect appropriate Results - Lab Results 09/13/18 20:00 09/14/18 05:34 Most recent lab results 09/14/18 05:34 Calcium 9.0 Consult Discharge Plan - Plan Referrals: Raven Rhodes, [Primary Care Provider] -
[2018-09-14] MEDS: Insulin LISPRO 300 UNITS/3 ML VIAL SQ SCH ×3 (12:36→17:02)
[2018-09-14] MEDS: Sodium Bicarbonate 75 MEQ in 0.45 % Sodium Chloride 1,000 ML IVC SCH (12:43)
--- NOTE | 2018-09-14 12:59 | Internal Med Progress Note ---
Hospitalist Progress Note - Encounter Date of Encounter: 09/14/18 Time of Encounter: 12:58 - Subjective Interval History: No acute events overnight. Patient reports right hip and bilateral leg pain. Had MRI done yesterday. - Exam Vitals: Temp Pulse Resp BP Pulse Ox 97.8 F 75 12 156/67 95 09/14/18 10:41 09/14/18 10:41 09/14/18 10:41 09/14/18 10:41 09/14/18 10:41 Exam: GENERAL: Not in distress. Alert and Oriented X3 HEENT: EOMI, PERRLA MOUTH: Good oral hygiene NECK:No JVD, No lymph nodes. CHEST AND LUNGS: Normal breath sounds, no wheezes or crackles HEART: S1 and S2 normal, no murmurs ABDOMEN: Soft, nontender, no organomegaly GENITOURINARY: SKIN: Normal color, no rahses, no lesions EXTREMITIES: No deformity, no edema, no tenderness, no joint swelling or clubbing NEUROLOGICAL: Normal cognition. 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 Mesa is a 78 year old male with history of GBS recently diagnosed on July [id number],status post IVIG, CJD stage IV, CAD status post PCI, HTN, activity who came into the hospital due to generalized weakness. Patient stated that after his diagnoses of GBS he had been improving since his rehabilitation. His recent worsening of weakness started when he developed diarrhea. Generalized weakness: - most likely from diarrhea and dehydration which has currently resolved. - Patient states that diarrhea has considerably reduced to one bowel movement today. - He continues to feel weak but much better than at presentation. ALEX on CKD Stage IV - Creatinine today is 2.32 which is somewhat at patient's baseline - Evaluation of his past BMP shows that his kidney function has been declining over the last year - Diarrhea with dehydration most likely contributed to mild acute kidney injury he presented with - Seen by nephrology who recommend gentle hydration and avoiding nephrotoxic agents - No need for renal biopsy at this time. Hyperkalemia - Potassium remains elevated at 5.6 - Gradually decreasing from levels at admission - Most likely related to mild ALEX on CKD. - Will continue to monitor GBS - Recently diagnosed in June 2018 - Patient's worsening weakness most likely related to diarrhea and not flare of GBS - MRI shows sequelae of cervical spine surgery, mild right neural forminal narrowing atC3-C4 secondary to disc bulge. Mild spinal canal narrowing from disc bulge at C5-C6. IDDM: - on 70/30 at home 30-40 unites BID - On levemir 22u qhs and MSSI, Bgm check TIAAC. CAD status post PCI: - Continue home medication DVT ppx" Heparin sc - Time Spent with Patient Total time spent is greater than 50% in coordination of care (as documented) at patient's floor/unit and/or counseling patient: Internal Medicine: Result - Labs CBC & Chem 7: 09/13/18 20:00 09/14/18 05:34 Labs: Short CBC 09/13/18 09/13/18 Range/Units 15:07 20:00 WBC 7.8 6.9 (4.3-11.1) K/mcL Hgb 12.1 L 12.5 L (12.9-16.9) g/dL Hct 36.6 L 38.3 (37.5-50.1) % Plt Count 233 237 (140-400) K/mcL Neutrophils # 4.9 4.0 (1.6-8.9) K/mcL BMP 09/13/18 09/13/18 09/13/18 15:07 16:45 20:00 Sodium 135 L 137 138 Potassium 6.2 H 6.1 H 5.7 H Chloride 110 H 112 H 114 H Carbon Dioxide 16 L 19 L 16 L BUN 48 H 47 H 44 H Creatinine 2.44 H 2.36 H 2.34 H Glucose 152 H 136 H 102 Calcium 9.8 9.2 9.8 09/14/18 05:34 Sodium 138 Potassium 5.6 H Chloride 108 H Carbon Dioxide 20 L BUN 40 H Creatinine 2.32 H Glucose 194 H Calcium 9.0 Liver Function 09/13/18 Range/Units 15:07 Total Bilirubin 0.3 (0.3-1.0) mg/dL AST 13 (13-39) Units/L ALT 20 (7-52) Units/L Alkaline Phosphatase 42 (34-104) Units/L Albumin 4.0 (3.5-5.7) g/dL Urine 09/13/18 Range/Units 15:29 Urine Color Yellow (Yellow) Urine Clarity Clear (Clear) Urine pH 6.0 (5.0-8.0) pH Units Ur Specific [place] 1.015 (1.010-1.025) Urine Protein Negative (Neg-Trace) mg/dL Urine Glucose (UA) Normal (Normal) mg/dL - Impressions Impressions Chest X-Ray 09/13/18 14:12 IMPRESSION: No significant findings in the chest. D/ / Uri Barraza MD / Uri Barraza MD Interpreting Provider: Uri Barraza MD Hip X-Ray 09/13/18 14:13 IMPRESSION: No acute fracture or significant hip osteoarthrosis. D/ / Juancho Durand MD / Juancho Durand MD Interpreting Provider: Juancho Durand MD Abdomen/Pelvis CT 09/13/18 17:50 IMPRESSION: No acute abnormality in the abdomen or pelvis. Colonic diverticulosis without diverticulitis. Inferior urinary bladder wall thickening in the setting of prostatomegaly. D/ / Juancho Durand MD / Juancho Durand MD Interpreting Provider: Juancho Durand MD Cervical Spine MRI 09/14/18 16:46 IMPRESSION: 1. Sequelae of anterior cervical discectomy and fusion from C3-C5. 2. Mild right neural foraminal narrowing at C3-4 secondary to a disc bulge and facet arthropathy. 3. Disc bulge at C6-7 mildly narrowing the spinal canal. D/ / 09/14/2018 12:28:10 Yoni Ribeiro MD / sophia Interpreting Provider: Yoni Ribeiro MD Consult Discharge Plan - Plan Referrals: Raven Rhodes DO [Primary Care Provider] - (1) Hypertension Qualifiers: Hypertension type: essential hypertension Qualified Code(s): I10 - Essential (primary) hypertension
[2018-09-14] MEDS: Insulin DETEMIR 100 UNIT/ML X5UNITS SQ SCH (20:04)
[2018-09-15] MEDS: Sodium Bicarbonate 75 MEQ in 0.45 % Sodium Chloride 1,000 ML IVC SCH (01:35)
[2018-09-15] MEDS: *HR* Heparin 5,000 UNIT/ML VIAL SQ SCH ×2 (05:50→17:39)
[2018-09-15 06:31] LABS: Potassium 5.3 mEq/L (3.5-5.1)
[2018-09-15 06:32] LABS: Calcium 8.9 mg/dL (8.6-10.3)
[2018-09-15] MEDS: Insulin LISPRO 300 UNITS/3 ML VIAL SQ SCH ×3 (07:52→17:38)
[2018-09-15] MEDS ORDERED: *HR* OxyCODONE/APAP 5/325 TABLET PO ONE (10:26)
--- NOTE | 2018-09-15 11:58 | Nephrology Progress Note ---
Date of Encounter: 09/15/18 Time of Encounter: 11:55 - Assessment and Plan (1) Vhdyj-zw-cmsgolz kidney injury Current Visit: No Status: Acute The patient has mild acute kidney injury on chronic kidney disease. He is pretty close to his baseline renal function. I suspect etiology is secondary to decreased oral intake along with diarrhea. He reports that his nausea is improving and his diarrhea is also improving. His renal function is improving with intravenous hydration. I recommend avoiding nephrotoxic agents. I also recommend adjusting medications for renal function. No need for a renal biopsy or hemodialysis at this time. Qualifiers: Acute renal failure type: unspecified Chronic kidney disease stage: stage 3 (moderate) Qualified Code(s): N17.9 - Acute kidney failure, unspecified; N18.3 - Chronic kidney disease, stage 3 (moderate) (2) Hyperkalemia Current Visit: Yes Status: Acute Mild hyperkalemia that is improving with medical management. (3) Weakness Current Visit: Yes Status: Acute (4) Hypertension Current Visit: Yes Status: Chronic Qualifiers: Hypertension type: essential hypertension Qualified Code(s): I10 - Essential (primary) hypertension (5) Insulin-requiring or dependent type II diabetes mellitus Current Visit: Yes Status: Chronic Subjective Principal diagnosis: Bilateral leg weakness Interval history: Patient same. He is sitting in a chair. He still has his right hip pain. Review of systems otherwise is stable. Objective - Vital Signs Vital signs: Vital Signs Temp Pulse Resp BP Pulse Ox 09/15/18 07:37 98.0 F 61 16 164/67 99 09/15/18 04:23 98.0 F 70 17 164/75 95 09/15/18 00:17 98.3 F 62 17 154/73 97 09/14/18 16:28 98.3 F 69 16 157/70 95 Intake and Output 09/14/18 09/15/18 09/15/18 23:59 07:59 15:59 Intake Total 240 / 600 1075 / 1555 480 / 1555 Output Total 800 / 1000 200 / 1000 Balance 240 / 90 275 / 555 280 / 555 Intake: IV Fluids 1075 / 1075 Sodium Bicarbonate 75 MEQ In 0. 1075 / 1075 45% Sodium Chloride 1,000 ML @ 100 mls/hr IVC .[id number] [facility] Rx# :[id number] Oral 240 / 600 480 / 480 Output: Urine 800 / 1000 200 / 1000 Other: Meal Breakfast Percent of Meal Consumed 100% Weight 91.4 kg Blood Glucose* 115 128 Patient Weight 09/15/18 23:59 Weight 91.4 kg - General Appearance General appearance: Present: well-developed, well-nourished EENT: Present: ATNC Cardiology: Present: regular rate Neurologic: Present: alert and oriented x3 Musculoskeletal: Present: no cyanosis Psychiatric: Present: mood/affect appropriate - Lab 09/13/18 20:00 09/15/18 05:16 Most recent lab results 09/15/18 05:16 Calcium 8.9 Consult Discharge Plan - Plan Referrals: Raven Rhodes DO [Primary Care Provider] -
--- NOTE | 2018-09-15 17:29 | Internal Med Progress Note ---
Hospitalist Progress Note - Encounter Date of Encounter: 09/15/18 Time of Encounter: 09:35 - Subjective Interval History: No acute events ovenight. Patient complains of right sided lower back pain and right lower extremities at time of encounter. - Exam Vitals: Temp Pulse Resp BP Pulse Ox 36.7 C 62 17 163/76 96 09/15/18 16:53 09/15/18 16:53 09/15/18 16:53 09/15/18 16:53 09/15/18 16:53 Exam: GENERAL: In mild distress complaining of lower back pain. Alert and Oriented HEENT: EOMI, PERRLA MOUTH: Good oral hygiene NECK:No JVD, No lymph nodes. CHEST AND LUNGS: Normal breath sounds, no wheezes or crackles HEART: S1 and S2 normal, no murmurs ABDOMEN: Soft, nontender, no organomegaly GENITOURINARY: SKIN: Normal color, no rahses, no lesions EXTREMITIES: No deformity, no edema, no tenderness, no joint swelling or clubbing NEUROLOGICAL: Power of 4/5 in lower extremities. Sensation intact. Exam remains unchanged from yesterdy. - Assessment and Plan (1) Hypertension Current Visit: Yes Status: Chronic (2) Hyperkalemia Current Visit: Yes Status: Acute (3) AIDP (acute inflammatory demyelinating polyneuropathy) Current Visit: No Status: Chronic (4) Insulin-requiring or dependent type II diabetes mellitus Current Visit: Yes Status: Chronic (5) Weakness Current Visit: Yes Status: Acute - Summary of Assessment and Plan Summary of Assessment and Plan: Mr. Mesa is a 78 year old male with history of GBS recently diagnosed on July [id number],status post IVIG, CJD stage IV, CAD status post PCI, HTN, activity who came into the hospital due to generalized weakness. Patient stated that after his diagnoses of GBS he had been improving since his rehabilitation. His recent worsening of weakness started when he developed diarrhea. Generalized weakness: - Weakness is improving - Patient no longer has diarrhea ALEX on CKD Stage IV - Creatinine trending down - Now at 2.16 - We will continue to encourage gentle hydration Hyperkalemia - Gradually resolving. Currently at 5.3 - Will continue to monitor GBS - Recently diagnosed in June 2018 - MRI shows sequelae of cervical spine surgery, mild right neural forminal narrowing atC3-C4 secondary to disc bulge. Mild spinal canal narrowing from disc bulge at C5-C6. - Seen by physical therapy who recommend some inpatient rehabilitation after discharge IDDM: - on 70/30 at home 30-40 unites BID - On levemir 22u qhs and MSSI, Bgm check TIAAC. CAD status post PCI: - Continue home medication DVT ppx" Heparin sc - Time Spent with Patient Total time spent is greater than 50% in coordination of care (as documented) at patient's floor/unit and/or counseling patient: Internal Medicine: Result - Labs CBC & Chem 7: 09/13/18 20:00 09/15/18 05:16 Labs: BMP 09/15/18 05:16 Sodium 142 Potassium 5.3 H Chloride 106 Carbon Dioxide 24 BUN 29 H Creatinine 2.16 H Glucose 119 H Calcium 8.9 Consult Discharge Plan - Plan Referrals: Raven Rhodes, [Primary Care Provider] - (1) Hypertension Qualifiers: Hypertension type: essential hypertension Qualified Code(s): I10 - Essential (primary) hypertension
[2018-09-15] MEDS: Insulin DETEMIR 100 UNIT/ML X5UNITS SQ SCH (21:32)
[2018-09-16] MEDS: *HR* Heparin 5,000 UNIT/ML VIAL SQ SCH (05:46)
[2018-09-16 07:57] LABS: Calcium 8.9 mg/dL (8.6-10.3); Potassium 5.3 mEq/L (3.5-5.1)
[2018-09-16] MEDS: Insulin LISPRO 300 UNITS/3 ML VIAL SQ SCH ×2 (08:28→11:44)
--- NOTE | 2018-09-16 09:19 | Nephrology Progress Note ---
Date of Encounter: 09/16/18 Time of Encounter: 08:30 - Assessment and Plan (1) Twkxn-mv-qyhgbph kidney injury Current Visit: No Status: Acute Trending back to baseline. 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 Okay to discharge from a Nephro perspective (the pt is hopeful to return to Rehab at [place]). Qualifiers: Acute renal failure type: unspecified Chronic kidney disease stage: stage 3 (moderate) Qualified Code(s): N17.9 - Acute kidney failure, unspecified; N18.3 - Chronic kidney disease, stage 3 (moderate) (2) Hyperkalemia Current Visit: Yes Status: Acute Still 5.3, today which is mildly elevated. emt intermediate he needs a diet that is very low in K+ and may need Lokelma vs Veltassa for recurrent/chronic h yperkalemia. I will plan to monitor him closely on this issue and will consider these Rx as an outpt. (3) Hypertension Current Visit: Yes Status: Chronic Qualifiers: Hypertension type: essential hypertension Qualified Code(s): I10 - Essential (primary) hypertension (4) Insulin-requiring or dependent type II diabetes mellitus Current Visit: Yes Status: Chronic Per the primary team. (5) Weakness Current Visit: Yes Status: Acute GBS as per primary. Agree with returning to focused rehab. Subjective Principal diagnosis: Bilateral leg weakness Interval history: The patient was seen and examined earlier today. He did not affirm any palpitations, nausea, vomiting, or chest pain. He said that he hopes to return to rehabilitation soon to work on his lower extremity strength. He voiced a desire to discharge today. Objective - Vital Signs Vital signs: Vital Signs Temp Pulse Resp BP Pulse Ox 09/16/18 07:29 98.1 F 60 20 155/68 93 09/16/18 04:06 98 F 66 20 162/81 96 09/16/18 00:22 97.8 F 74 17 172/72 96 09/15/18 20:24 97.9 F 61 17 164/73 96 09/15/18 16:53 98.0 F 62 17 163/76 96 09/15/18 11:51 97.8 F 66 19 183/74 98 Intake and Output 09/15/18 09/16/18 09/16/18 23:59 07:59 15:59 Output Total 550 / 1550 175 / 175 Balance -550 / 5 -175 / -175 Output: Urine 550 / 1550 175 / 175 Other: Blood Glucose* 180 135 - General Appearance General appearance: Present: well-developed, well-nourished, chronically ill EENT: Present: ATNC, PERRL, mucous membranes moist Neck: Present: no JVD, no carotid bruit, supple Respiratory: Present: no kyphosis, clear Cardiology: Present: no edema, regular rate, regular rhythm, normal S1, normal S2 Gastrointestinal: Present: normoactive bowel sounds, no tenderness, no guarding Integumentary: Present: no rash, warm and dry Neurologic: Present: alert and oriented x3 Additional Comments: bilateral lower extremity weakness Musculoskeletal: Present: no deformities, no erythema, no cyanosis Psychiatric: Present: mood/affect appropriate, cooperative - Lab 09/13/18 20:00 09/16/18 07:08 Most recent lab results 09/16/18 07:08 Calcium 8.9 Consult Discharge Plan - Plan Referrals: Raven Rhodes DO [Primary Care Provider] -
[2018-09-16] MEDS ORDERED: *HR* OxyCODONE/APAP 5/325 TABLET PO ONE (10:01)
--- NOTE | 2018-09-16 11:27 | Discharge Summary ---
- NOTES TO OUTPATIENT PROVIDER Notes to Outpatient Provider: Patient to follow up with cell biologist for persistent hyperkalemia Orders not resulted at time of discharge: Pending orders 09/13/18 14:01 ECG 12 lead ECG [ECG] Stat 09/13/18 20:00 Culture,Blood [BC] Stat Date of Encounter: 09/16/18 Time of Encounter: 11:22 - Discharge Diagnosis (1) Weakness Priority: Primary Status: Acute (2) Hypertension Priority: Secondary Status: Chronic Qualifiers: Hypertension type: essential hypertension Qualified Code(s): I10 - Essential (primary) hypertension (3) Hyperkalemia Priority: Secondary Status: Acute (4) 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 Mesa is a 78 year old male - Time Spent with Patient Total time spent providing and/or coordinating discharge services: - Discharge Medications Prescriptions: New OxyCODONE/APAP 5/325 [Percocet 5/325 MG] 1 each PO Q8HR PRN 3 Days #9 tablet PRN Reason: Pain Continued Antiox#10/Om3/Dha/Epa/Lut/Zeax [I-Caps with Lutein-[place] 3 Sfg] 1 cap PO DAILY Aspirin [Lo-Dose Aspirin EC] 81 mg PO HS Atorvastatin [Lipitor] 40 mg PO HS Cholecalciferol (D-3) [Vitamin D] 5,000 unit PO DAILY Ranitidine HCl [Acid Territory Account Executive] 150 mg PO BID Carvedilol 12.5 mg PO BID Dutasteride 0.5 mg PO HS Insulin Aspart Prot/Insuln Asp [Novolog Mix 70-30 Vial] 20 - 60 unit SQ TIDWM Magnesium Oxide [Magnesium] 400 mg PO BID Furosemide [Lasix] 20 mg PO Q48H NIFEdipine [Nifedipine ER] 30 mg PO DAILY Losartan Potassium 50 mg PO DAILY Spironolactone 50 mg PO BID Discontinued Clopidogrel [Plavix] 75 mg PO HS No Action Gabapentin [Neurontin] 100 mg PO HS Home Medications: Antiox#10/Om3/Dha/Epa/Lut/Zeax [I-Caps with Lutein-[place] 3 Sfg] 1 cap PO DAILY 07/08/17 [History] Aspirin [Lo-Dose Aspirin EC] 81 mg PO HS 07/08/17 [History] Atorvastatin [Lipitor] 40 mg PO HS 07/08/17 [History] Cholecalciferol (D-3) [Vitamin D] 5,000 unit PO DAILY 07/08/17 [History] Ranitidine HCl [Acid Territory Account Executive] 150 mg PO BID 07/08/17 [History] Carvedilol 12.5 mg PO BID 07/19/18 [History] Dutasteride 0.5 mg PO HS 07/19/18 [History] Insulin Aspart Prot/Insuln Asp [Novolog Mix 70-30 Vial] 20 - 60 unit SQ TIDWM 07/19/18 [History] Magnesium Oxide [Magnesium] 400 mg PO BID 07/19/18 [History] Furosemide [Lasix] 20 mg PO Q48H 09/13/18 [History] Gabapentin [Neurontin] 100 mg PO HS 09/14/18 [History] Losartan Potassium 50 mg PO DAILY 09/14/18 [History] NIFEdipine [Nifedipine ER] 30 mg PO DAILY 09/14/18 [History] Spironolactone 50 mg PO BID 09/14/18 [History] OxyCODONE/APAP 5/325 [Percocet 5/325 MG] 1 each PO Q8HR PRN 3 Days #9 tablet 09/16/18 [Rx] Allergies/Adverse Reactions: Allergy/AdvReac Type Severity Reaction Status Date / Time clonidine AdvReac Nausea Verified 09/13/18 16:10 enalaprilat [From Vasotec] AdvReac Nausea Verified 09/13/18 16:10 fentanyl AdvReac Nausea Verified 09/13/18 16:10 lisinopril AdvReac Nausea Verified 09/13/18 16:10 naproxen AdvReac Nausea Verified 09/13/18 16:10 simvastatin AdvReac Nausea Verified 09/13/18 16:10 tramadol AdvReac Nausea Verified 09/13/18 16:10 Date of admission: 09/13/18 17:24 Primary care physician: Nat Torres Consults: 09/13/18 14:21 Consult to Neurology [CONS] Stat Consulting Provider: [facility] Reason for Consult: GBS, weakness progressing Call Completed: Yes 09/13/18 17:43 Consult to Nephrology [CONS] Routine Consulting Provider: Kidney [facility]/ORIMI/TALON/TED Reason for Consult: hyperkalemia, CKD stage IV Call Completed: No 09/15/18 09:48 Consult to Physical Therapy [CONS] Routine Comment: Evaluate, develop and implement POC Reason for Consult: Evaluate and help in decision for next level of care Does patient have active BEDREST order?: No Is patient medically & hemodynamically stable?: Yes - Constitutional Vitals: Temp Pulse Resp BP Pulse Ox 36.7 C 60 20 155/68 93 09/16/18 07:29 09/16/18 07:29 09/16/18 07:29 09/16/18 07:09/16/18 07:29 Exam: GENERAL: Not in distress. HEENT: EOMI, PERRLA MOUTH: Good oral hygiene NECK:No JVD, No lymph nodes. CHEST AND LUNGS: Normal breath sounds, no wheezes or crackles HEART: S1 and S2 normal, no murmurs ABDOMEN: Soft, nontender, no organomegaly GENITOURINARY: SKIN: Normal color, no rahses, no lesions EXTREMITIES: No deformity, no edema, no tenderness, no joint swelling or clubbing NEUROLOGICAL: Power of 4/5 in lower extremities. Sensation intact. Exam remains unchanged from yesterdy. - Patient Status Disposition: Home, Self-Care Functional capacity at discharge: uses cane/walker Overall status at discharge: patient is progressing back to baseline - Discharge Instructions Follow Up With: Raven Rhodes DO [Primary Care Provider] - - Diet and Activity Activity: as per physical therapy
--- NOTE | 2018-09-16 13:07 | Physician Discharge Referral ---
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 (5) Insulin-requiring or dependent type II diabetes mellitus Priority: Secondary Status: Chronic - Transfer Medications Home Medications: Antiox#10/Om3/Dha/Epa/Lut/Zeax [I-Caps with Lutein-[place] 3 Sfg] 1 cap PO DAILY 07/08/17 [History] Aspirin [Lo-Dose Aspirin EC] 81 mg PO HS 07/08/17 [History] Atorvastatin [Lipitor] 40 mg PO HS 07/08/17 [History] Cholecalciferol (D-3) [Vitamin D] 5,000 unit PO DAILY 07/08/17 [History] Clopidogrel [Plavix] 75 mg PO HS 07/08/17 [History] Ranitidine HCl [Acid Business Systems Administrator] 150 mg PO BID 07/08/17 [History] Carvedilol 12.5 mg PO BID 07/19/18 [History] Dutasteride 0.5 mg PO HS 07/19/18 [History] Insulin Aspart Prot/Insuln Asp [Novolog Mix 70-30 Vial] 20 - 60 unit SQ TIDWM 07/19/18 [History] Magnesium Oxide [Magnesium] 400 mg PO BID 07/19/18 [History] Furosemide [Lasix] 20 mg PO Q48H 09/13/18 [History] Gabapentin [Neurontin] 100 mg PO HS 09/14/18 [History] Losartan Potassium 50 mg PO DAILY 09/14/18 [History] NIFEdipine [Nifedipine ER] 30 mg PO DAILY 09/14/18 [History] Spironolactone 50 mg PO BID 09/14/18 [History] Allergies/Adverse Reactions: Allergy/AdvReac Type Severity Reaction Status Date / Time clonidine AdvReac Nausea Verified 09/13/18 16:10 enalaprilat [From Vasotec] AdvReac Nausea Verified 09/13/18 16:10 fentanyl AdvReac Nausea Verified 09/13/18 16:10 lisinopril AdvReac Nausea Verified 09/13/18 16:10 naproxen AdvReac Nausea Verified 09/13/18 16:10 simvastatin AdvReac Nausea Verified 09/13/18 16:10 tramadol AdvReac Nausea Verified 09/13/18 16:10 - Respiratory Orders Smoking Cessation: Smoking cessation has been advised. For more information, call the [place] Tobacco Quit Line at 1-162-DUDB-NOW. - Advance Directives Code Status: DNR-Arrest/Don't Intubate - Rehabiliation Orders Rehab Potential: Good - Diet Orders Regular CERTIFICATION: I certify that the transfer of the above named patient to an Extended Care Facility is necessary for the continuing treatment of the diagnosis listed. The above information is true and accurate reflection of patient's current condition. Confidential - Redisclosure prohibited without a patient's written consent.
[2018-09-16] MEDS ORDERED: *HR* OxyCODONE/APAP 5/325 TABLET PO PRN (16:03)
[2018-09-16 17:34] VITALS: BP 158/90
--- NOTE | 2018-09-16 23:07 | Electrocardiograph Report ---
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
== END 2018-09-16 18:01 | disposition home or self-care (01) ==
LOC: 2ANU 12:31 → EMEROOARM 12:31 → SUATTDRO 17:24 → 2ANU 17:55
PROVIDERS: ADMIT Internal Medicine; ATTEND Internal Medicine

== ENCOUNTER 2018-11-14 06:01 | Inpatient (IN) ==
[~2018-11-14 06:01] MED LIST: Bacitracin 50,000 UNIT, Polymyxin B Sulfate 500,000 UNIT, Sodium Chloride IRRigation 1,... IR ONE
[2018-11-14] MEDS ORDERED: *HR* FentaNYL (PF) 100 MCG/2 ML VIAL ONE (06:30)
[2018-11-14] MEDS ORDERED: *HR* Propofol 200 MG/20 ML VIAL IVP ONE (06:30)
[2018-11-14] MEDS ORDERED: *HR* Remifentanil 1 MG VIAL IVP ONE ×2 (06:31→10:20)
[2018-11-14] MEDS ORDERED: *HR* Succinylcholine 200 MG/10 ML VIAL IVP ONE (06:38)
[2018-11-14] MEDS ORDERED: Ondansetron 4 MG/2 ML VIAL ONE (06:38)
[2018-11-14] MEDS ORDERED: Lidocaine -MPF 2% 2 ML VIAL ONE ×2 (06:38→11:00)
[2018-11-14] MEDS ORDERED: *HR* Phenylephrine 10 MG/ML VIAL ONE (06:38)
[2018-11-14] MEDS ORDERED: Lidocaine HCL 4 ML Topical Solution (Laryng-O-Jet Kit Sterile Pak) TP ONE (06:38)
[2018-11-14] MEDS ORDERED: *HR* Rocuronium Bromide 50 MG/5 ML VIAL ONE (06:38)
[2018-11-14] MEDS ORDERED: CeFAZolin Syr 2,000MG/20 ML 2,000 MG/20 ML SYRINGE IVPB ONE (06:41)
[2018-11-14] MEDS ORDERED: 0.9 % Sodium Chloride 500 ML IVC SCH (06:45)
[2018-11-14] MEDS ORDERED: Acetaminophen IV 1,000 MG/100 ML INFUS..BTL IVPB ONE (07:48)
[2018-11-14] MEDS ORDERED: Gabapentin 300 MG CAPSULE PO ONE (07:48)
--- NOTE | 2018-11-14 07:52 | Anesthesia Evaluation PreOp ---
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 (chronic back pain) Other Medical History: Renal (CKD), Diabetes Type II (insulin dependent TID) Anesthesia History: No Prior Anesthetic Complications, Past Anesthesia Alcohol Use: none Drug use: none Medications and Allergies Antiox#10/Om3/Dha/Epa/Lut/Zeax [I-Caps with Lutein-[place] 3 Sfg] 1 cap PO QAM 07/08/17 [History] Aspirin [Lo-Dose Aspirin EC] 81 mg PO HS 07/08/17 [History] Atorvastatin [Lipitor] 40 mg PO HS 07/08/17 [History] Cholecalciferol (D-3) [Vitamin D] 5,000 unit PO QAM 07/08/17 [History] Ranitidine HCl [Acid [place]] 150 mg PO BID 07/08/17 [History] Carvedilol 12.5 mg PO BID 07/19/18 [History] Dutasteride 0.5 mg PO HS 07/19/18 [History] Insulin Aspart Prot/Insuln Asp [Novolog Mix 70-30 Vial] 30 - 40 unit SQ TIDWM 07/19/18 [History] Magnesium Oxide [Magnesium] 400 mg PO BID 07/19/18 [History] Furosemide [Lasix] 20 mg PO Q48H 09/13/18 [History] NIFEdipine [Nifedipine ER] 30 mg PO QPM 09/14/18 [History] Clopidogrel [Plavix] 75 mg PO DAILY 11/14/18 [History] Gabapentin [Neurontin] 300 mg PO HS 11/14/18 [History] Tramadol HCl [Ultram] 50 mg PO QID PRN 11/14/18 [History] Allergy/AdvReac Type Severity Reaction Status Date / Time acetaminophen [From Vicodin] Allergy Unknown Verified 11/14/18 07:24 hydrocodone Allergy Unknown Verified 11/14/18 07:24 clonidine AdvReac Nausea Verified 11/14/18 07:24 enalaprilat [From Vasotec] AdvReac Nausea Verified 11/14/18 07:24 fentanyl AdvReac Nausea Verified 11/14/18 07:24 lisinopril AdvReac Nausea Verified 11/14/18 07:24 naproxen AdvReac Nausea Verified 11/14/18 07:24 simvastatin AdvReac Nausea Verified 11/14/18 07:24 tramadol AdvReac Nausea Verified 11/14/18 07:24 Anesthesia Results - Labs Laboratory Tests 10/26/18 11/09/18 11/09/18 11:09 10:13 10:13 WBC 7.9 Hgb 12.8 L Hct 40.0 Plt Count 394 PT 11.8 INR 1.0 APTT 31.4 Sodium Potassium Chloride 106 Carbon Dioxide BUN Creatinine Est GFR (Non-Af Amer) 11/09/18 10:13 WBC Hgb Hct Plt Count PT INR APTT Sodium 140 Potassium 3.8 Chloride Carbon Dioxide 26 BUN 24 H Creatinine 1.52 H Est GFR (Non-Af Amer) 44 L - Imaging EKG: report reviewed Additional studies: 06/2018 echo with saline Impressions: LVEF 60%. Mild concentric left ventricular hypertrophy with basal sigmoid septum. Mild left ventricular diastolic dysfunction. Normal right ventricular structure and function. Mild mitral regurgitation. Mild tricuspid regurgitation. No pulmonary hypertension. There is a small pericardial effusion present along the inferolateral wall of the LV. There is no echocardiographic evidence of tamponade. No evidence of PFO with agitated saline contrast. 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
--- NOTE | 2018-11-14 08:09 | History & Physical Report ---
Date of Encounter: 11/14/18 Time of Encounter: 08:08 24 Hour HP Update - Instructions Instructions: If the History and Physical is less than 30 days old and was completed prior to A.M. admission and or procedure and has NOT been updated on calendar day of procedure please complete this update prior to performing procedure. - Update Patient reports changes in Medical Condition: No Changes in examination, assessment, or condition: No Changes in Medication: No Preop tests/diagnostics Reviewed: Yes Pre-Op MRSA Screen: Negative Surgery Remains Indicated: Yes Consent for Planned Operative Procedure(s) Verified: Yes - Pre-Operative Checklist Preoperative Checklist Indicated: No Prophylactic Antibiotic Ordered: Yes Home Medications Include Beta Lesly: Yes Beta Lesly Taken Today (Day of Surgery): No Beta Lesly Taken Yesterday (Day Prior to Surgery): Yes Is VTE Prophylaxis Indicated?: Yes
[2018-11-14] MEDS ORDERED: Ondansetron 4 MG/2 ML VIAL IVP ONE (08:14)
[2018-11-14] MEDS ORDERED: *HR* Promethazine 25 MG/ML VIAL IVP PRN (08:14)
[2018-11-14] MEDS ORDERED: D5% in Water 250 ML ONE (09:03)
[2018-11-14] MEDS ORDERED: *HR* HYDROMORPHONE 2 MG/ML VIAL ONE (10:59)
--- NOTE | 2018-11-14 11:07 | Orthopedic Operative Note ---
Date of procedure: 11/14/18 Pre-op diagnosis: Lumbar stenosis, lumbar radiculopathy, status post laminectomy Post-op diagnosis: same Operation/Findings: Posterior lumbar interbody fusion L4-L5: The patient successfully underwent general endotracheal anesthesia. The patient was given antibiotics prior to the start of the procedure. Compression boots and stockings were used for deep vein thrombosis prophylaxis. A Henson catheter was placed. Leads for neuro monito ring were placed on the upper and lower extremities. This included the cranium. The neuro monitoring personnel confirmed there were satisfactory readings prior to the start of the procedure. The patient was turned prone on the John table. The back was prepped and draped in the usual sterile fashion. An incision was was marked and centered over the involved L4-L5 levels in the mid line. The incision was deepened through the lumbar fascia. Bovie cautery and Henry elevators were used to reflect the paraspinal musculature at the lateral extent of the transverse processes of the involved L4 and L5 levels. Josette clamps were placed over the L4 and L5 spinous processes. An intraoperative lateral fluorograph was obtained. A conversation was held between the surgeon and radiologist and both confirmed we had the correct operative levels. We then placed pedicle screws in standard fashion with the aid of fluoroscopy and anatomic landmarks. Briefly a starter awl was used. A gearshift was subsequently used to enter the agricultural aircraft pilot hole via a transpedicular route into the vertebral body. The agricultural aircraft pilot hole was tapped with an undersized instrument, and subsequently four 6.5 x 40 mm pedicle screws were placed bilaterally at the indicated L4 and L5 levels. The screws were tested with the aid of the neurologic monitoring staff via pedicle screw stimulation. All reading suggested there was no significant cortical wall breech. The screws were also evaluated fluoro- graphically and appeared to be in satisfactory position. We then turned our attention to the decompression portion of the procedure. We removed the supraspinous and interspinous ligaments and subsequently the insertion of the ligamentum flavum on the undersurface of the proximal L4 lamina was dislodged with a curette. We then removed the ligamentum flavum as well as undercut the L4-L5 facets at this L4-L5 level to decompress the lateral recesses. We also performed a L4 laminectomy. After the decompression, which was over and above that which was required to place the interbody graft, the foramen and traversing roots at this L4-L5 level were found to be free and patent. We also took part of the medial facets in order to aid in the decompression. We then protected the neural elements including the thecal sac and traversing nerve root on the right with a dural retractor. We made an annulotomy into the L4-L5 disc space and then removed entire disc material using Pituitary instruments. We trialed various size grafts after the endplates were prepared for graft insertion. A 10 x 26 enter body graft fit well within the L4-L5 disc space. We obtained some bone from the right posterior superior iliac spine through us a separate incision and combined with this with the bone which we had saved from the laminectomy portion of the procedure. This autograft bone was first placed in the anterior portion of the L4-L5 disc space and additional bone was placed within the interbody graft spacer. We then placed the interbody graft spacer obliquely across the L4-L5 disc space towards the midline while protecting the neural elements with a root retractor. When the graft was found to be in satisfactory position the irrigator overhead was removed. We then copiously irrigated the wound. We then decorticated the L4-L5 transverse processes as well as the facet joints of the involved L4 and L5 levels to aid in the posterolateral fusion. We placed autograft bone in the lateral gutters over these regions. We then placed rods within the screw heads of the involved L4 and L5 levels and first locked the distal screws and then subsequently locked the proximal screws so as to improve and reduce the spondylolisthesis previously seen. We then closed the wound in layers with 1 Vicryl for the fascia, 2-0 Vicryl. Subcutaneous tissue, and Dermabond was used for skin closure. Sterile dressings were placed over the wound. The patient was turned supine on a hospital bed and extubated. All sponge instruments and needle counts were correct at the end of the procedure. The patient tolerated the procedure well without complications. Anesthesia: GETA Surgeon: Stephen Hardy Jr Was there an apartment community assistant manager present: No Estimated blood loss (cc): 80 Specimen: None Condition: stable Disposition: PACU
[2018-11-14] MEDS: *HR* HYDROmorphone (PF) 1 MG/ML SYRINGE IVP PRN ×4 (11:24→11:51)
[2018-11-14] MEDS: *HR* Labetalol 20 MG/4 ML SYRINGE IVP PRN ×2 (11:30→11:42)
--- NOTE | 2018-11-14 12:12 | Anesthesia Evaluation Post Op ---
Date of Encounter: 11/14/18 Time of Encounter: 12:12 - Vital Signs Vital Signs: Vital Signs/O2 Sat, Most Current Temp Pulse Resp BP Pulse Ox 97.8 F 71 12 181/102 97 11/14/18 11:45 11/14/18 11:45 11/14/18 11:45 11/14/18 11:45 11/14/18 11:45 - Lungs Lungs: Clear Ascult./Percussion - Airway Airway: Non-obstructed - Cardiovascular Regular Rate - Mental Status Mental Status: Asleep with brisk response to light stimulation - Pain Pain Scale used: Unable to assess - Nausea Vomiting Nausea Vomiting: Not Present - Hydration Hydration: NPO, Henson catheter - Discharge PostOp Status: Transfer Patient to floor
[2018-11-14] MEDS ORDERED: Naloxone 0.4 MG/ML INJ IVP PRN (12:15)
[2018-11-14] MEDS ORDERED: Ondansetron 4 MG/2 ML VIAL IVP PRN (12:15)
[2018-11-14] MEDS ORDERED: Acetaminophen 325 MG TABLET PO PRN (12:15)
[2018-11-14] MEDS: Ringers Solution, Lactated 1,000 ML IVC SCH (14:57)
[2018-11-14] MEDS: Furosemide 20 MG TABLET PO SCH (15:52)
[2018-11-14] MEDS: *HR* OxyCODONE Immed Rel 5 MG TABLET PO PRN ×2 (17:58→22:02)
[2018-11-14] MEDS: NIFEdipine XL (24 HR) 30 MG TAB.ER.24 PO SCH (17:58)
[2018-11-14] MEDS: traMADol 50 MG TABLET PO PRN (19:07)
[2018-11-14] MEDS: Gabapentin 300 MG CAPSULE PO SCH (20:02)
[2018-11-14] MEDS: Aspirin Enteric Coated 81 MG Tablet PO SCH (20:02)
[2018-11-14] MEDS: Finasteride 5 MG TABLET PO SCH (20:02)
[2018-11-14] MEDS: Magnesium Oxide 400 MG TABLET PO SCH (20:03)
[2018-11-14] MEDS ORDERED: Famotidine 20 MG TABLET PO SCH (21:00)
[2018-11-15] MEDS: *HR* OxyCODONE Immed Rel 5 MG TABLET PO PRN ×4 (02:56→21:16)
[2018-11-15] MEDS: Ringers Solution, Lactated 1,000 ML IVC SCH (02:59)
[2018-11-15] MEDS: Cholecalciferol (D-3) 1,000 UNIT (25MCG) TABLET PO SCH (08:02)
[2018-11-15] MEDS: Famotidine 20 MG TABLET PO SCH (08:02)
[2018-11-15] MEDS: Magnesium Oxide 400 MG TABLET PO SCH ×2 (08:02→20:44)
[2018-11-15] MEDS ORDERED: ANTIOX PO SCH (09:00)
[2018-11-15] MEDS ORDERED: [UNRECOGNIZED DRUG - OTHER] PO SCH (09:00)
[2018-11-15] MEDS ORDERED: DHA PO SCH (09:00)
[2018-11-15] MEDS ORDERED: LUT PO SCH (09:00)
[2018-11-15] MEDS ORDERED: ZEAX PO SCH (09:00)
[2018-11-15] MEDS ORDERED: EPA PO SCH (09:00)
--- NOTE | 2018-11-15 12:04 | Orthopedics Progress Note ---
Date of Encounter: 11/15/18 Time of Encounter: 12:00 - Assessment and Plan (1) Lumbar stenosis Status: Chronic Qualifiers: Neurogenic claudication status: unspecified Qualified Code(s): M48.061 - Spinal stenosis, lumbar region without neurogenic claudication (2) Lumbar radiculopathy Status: Chronic (3) History of laminectomy Status: Chronic (4) Status post lumbar spinal fusion Status: Acute Subjective Principal diagnosis: status post lumbar fusion Interval history: POD#1 s/p Posterior lumbar interbody fusion L4-L5 [ Lumbar stenosis, lumbar radiculopathy, status post laminectomy] 11/14/18 Patient seen at bedside. Daughters and son-in-law at bedside. A&Ox3 Dressing and incision c/d/i No calf tenderness, erythema, or warmth. Neurovascularly intact b/l LE. LSO in room. Labwork, vitals, and medications reviewed. Pain control: Adequate Participating in therapy. All questions and concerns addressed. Educated on use of incentive spirometer, ambulation, and hydration. Patient educated on post-operative restrictions and care. Addressed: see above. Patient course and disposition discussed with Dr. Hardy D/C plan: Continue postoperative care Objective Vital signs: Vital Signs Temp Pulse Resp BP Pulse Ox 11/15/18 11:27 98.5 F 96 18 149/69 93 11/15/18 07:14 98.6 F 82 18 125/56 93 11/15/18 04:02 98.3 F 77 17 108/66 92 11/14/18 23:15 97.9 F 84 16 151/69 94 11/14/18 20:15 97 11/14/18 18:59 98.8 F 81 15 155/74 97 11/14/18 15:30 98 F 68 16 150/88 98 11/14/18 14:30 98 F 74 18 176/92 96 11/14/18 13:29 98 F 66 16 144/73 93 11/14/18 13:00 97.4 F L 68 16 159/73 94 11/14/18 12:29 97.4 F L 68 16 153/70 96 11/14/18 12:15 97.8 F 72 12 155/82 95 11/14/18 12:05 72 12 154/84 95 Intake and Output 11/14/18 11/15/18 11/15/18 23:59 07:59 15:59 Intake Total 340 / 460 1350 / 1350 Output Total 900 / 1090 600 / 600 Balance -560 / -630 750 / 750 Intake: IV Fluids 100 / 220 1100 / 1100 Lactated Ringers 1,000 ML @ 100 1000 / 1000 mls/hr IVC .Q10H [facility] Rx#: [id number] Ancef 2,000 MG In 0.9 % Sodium 100 / 200 100 / 100 Chloride 100 ML @ 200 mls/hr IVPB Q8HR [facility] Rx#:[id number] Oral 240 / 240 250 / 250 Output: Catheter 900 / 900 600 / 600 Other: Meal Dinner Percent of Meal Consumed 100% Weight 90.6 kg Blood Glucose* 221 219 353 Patient Weight 11/15/18 23:59 Weight 90.6 kg - Labs Labs: Abnormal lab results POC Glucose 221 mg/dL (70-99) H 11/14/18 19:41 Consult Discharge Plan - Plan Instructions: Laxative, Stool Softeners (By mouth), Oxycodone, Rapid Release (By mouth), Lumbar Spinal Fusion (GEN) Referrals: Geovanna Nichols, DEISY [Physician Mental Health Program Manager] - 11/29/18 8:45 am (Follow up PLIF L4-L5) Raven Rhodes DO [Primary Care Provider] - Bravo Mercado DO [Partnered Physician] - 01/25/19 3:10 pm (3 months f/u ) Tr Lund DO [Partnered Physician] - 01/02/19 1:45 pm (2 Month f/u spinalstenosis) Prescriptions: Docusate Sodium [Colace] 100 mg PO BID 5 Days #10 capsule Prescription Printed OxyCODONE Immed Rel [Roxicodone 5 MG] 5 mg PO Q6HR PRN 5 Days #20 tablet PRN Reason: Severe Pain Prescription Printed
[2018-11-15] MEDS: Insulin LISPRO 300 UNITS/3 ML VIAL SQ SCH ×2 (12:46→16:47)
[2018-11-15] MEDS ORDERED: tiZANidine 4 MG TABLET PO PRN (13:00)
[2018-11-15] MEDS: NIFEdipine XL (24 HR) 30 MG TAB.ER.24 PO SCH (16:47)
[2018-11-15] MEDS: Gabapentin 300 MG CAPSULE PO SCH (20:44)
[2018-11-15] MEDS: Finasteride 5 MG TABLET PO SCH (20:44)
[2018-11-15] MEDS: Aspirin Enteric Coated 81 MG Tablet PO SCH (20:44)
[2018-11-16] MEDS: *HR* OxyCODONE Immed Rel 5 MG TABLET PO PRN ×3 (02:32→15:47)
[2018-11-16] MEDS: Insulin LISPRO 300 UNITS/3 ML VIAL SQ SCH ×3 (08:16→17:35)
[2018-11-16] MEDS: Magnesium Oxide 400 MG TABLET PO SCH ×2 (08:17→19:54)
[2018-11-16] MEDS: Famotidine 20 MG TABLET PO SCH (08:17)
[2018-11-16] MEDS: Cholecalciferol (D-3) 1,000 UNIT (25MCG) TABLET PO SCH (08:17)
--- NOTE | 2018-11-16 08:28 | Orthopedics Progress Note ---
Date of Encounter: 11/16/18 Time of Encounter: 11:00 - Assessment and Plan (1) S/P lumbar laminectomy Status: Chronic (2) Lumbar radiculopathy Status: Chronic (3) Lumbar stenosis Status: Chronic Qualifiers: Neurogenic claudication status: unspecified Qualified Code(s): M48.061 - Spinal stenosis, lumbar region without neurogenic claudication (4) Status post lumbar spinal fusion Status: Acute Subjective Principal diagnosis: s/p plif Interval history: POD#2 s/p Posterior lumbar interbody fusion L4-L5 [ Lumbar stenosis, lumbar radiculopathy, status post laminectomy] 11/14/18 Patient seen at bedside. Daughter at bedside. A&Ox3 Dressing and incision c/d/i No calf tenderness, erythema, or warmth. Neurovascularly intact b/l LE. LSO in room. Labwork, vitals, and medications reviewed. Pain control: Adequate Participating in therapy. All questions and concerns addressed. Educated on use of incentive spirometer, ambulation, and hydration. Patient educated on post-operative restrictions and care. Addressed: see above. Patient course and disposition discussed with Dr. Hardy D/C plan: Continue postoperative care Objective Vital signs: Vital Signs Temp Pulse Resp BP Pulse Ox 11/16/18 06:19 99.5 F 102 18 149/70 92 11/16/18 02:35 99.8 F H 100 17 161/72 93 11/15/18 23:22 99.3 F 87 17 148/72 93 11/15/18 21:23 99.7 F H 11/15/18 19:27 99.9 F H 90 16 152/68 92 11/15/18 16:19 98.1 F 91 16 149/69 94 11/15/18 11:27 98.5 F 96 18 149/69 93 Intake and Output 11/15/18 11/16/18 11/16/18 23:59 07:59 15:59 Intake Total 440 / 1790 Output Total 425 / 1025 200 / 200 Balance -200 / -200 Intake: Oral 440 / 690 Output: Urine 425 / 425 200 / 200 Other: Meal Dinner Percent of Meal Consumed 100% Weight 90.5 kg Blood Glucose* 238 288 Patient Weight 11/16/18 23:59 Weight 90.5 kg - Labs Labs: Abnormal lab results POC Glucose 238 mg/dL (70-99) H 11/15/18 19:47 Consult Discharge Plan - Plan Instructions: Laxative, Stool Softeners (By mouth), Oxycodone, Rapid Release (By mouth), Lumbar Spinal Fusion (GEN) Referrals: Geovanna Nichols, DEISY [Physician Statistician Theoretical] - 11/29/18 8:45 am (Follow up PLIF L4-L5) Raven Rhodes DO [Primary Care Provider] - Bravo Mercado DO [Partnered Physician] - 01/25/19 3:10 pm (3 months f/u ) Tr Lund DO [Partnered Physician] - 01/02/19 1:45 pm (2 Month f/u spinalstenosis) Prescriptions: Docusate Sodium [Colace] 100 mg PO BID 5 Days #10 capsule Prescription Printed OxyCODONE Immed Rel [Roxicodone 5 MG] 5 mg PO Q6HR PRN 5 Days #20 tablet PRN Reason: Severe Pain Prescription Printed
[2018-11-16] MEDS: Furosemide 20 MG TABLET PO SCH (12:03)
[2018-11-16] MEDS: NIFEdipine XL (24 HR) 30 MG TAB.ER.24 PO SCH (17:35)
[2018-11-16] MEDS: Aspirin Enteric Coated 81 MG Tablet PO SCH (19:54)
[2018-11-16] MEDS: Gabapentin 300 MG CAPSULE PO SCH (19:54)
[2018-11-16] MEDS: Finasteride 5 MG TABLET PO SCH (19:54)
[2018-11-16] MEDS: traMADol 50 MG TABLET PO PRN (20:00)
[2018-11-17] MEDS: Insulin LISPRO 300 UNITS/3 ML VIAL SQ SCH ×4 (07:46→17:02)
[2018-11-17] MEDS: Magnesium Oxide 400 MG TABLET PO SCH (08:07)
[2018-11-17] MEDS: Famotidine 20 MG TABLET PO SCH (08:07)
[2018-11-17] MEDS: Cholecalciferol (D-3) 1,000 UNIT (25MCG) TABLET PO SCH (08:07)
[2018-11-17] MEDS: *HR* OxyCODONE Immed Rel 5 MG TABLET PO PRN ×2 (08:07→12:20)
--- NOTE | 2018-11-17 13:55 | Discharge Summary ---
Date of Encounter: 11/17/18 Time of Encounter: 08:30 - Discharge Diagnosis (1) Status post lumbar spinal fusion Priority: Primary Status: Acute (2) S/P lumbar laminectomy Priority: Primary Status: Chronic (3) Lumbar radiculopathy Priority: Primary Status: Chronic (4) Lumbar stenosis Priority: Primary Status: Chronic Qualifiers: Neurogenic claudication status: unspecified Qualified Code(s): M48.061 - Spinal stenosis, lumbar region without neurogenic claudication - Hospital Course Hospital course: Mr. Mesa is a 78 year old male POD#3 s/p Posterior lumbar interbody fusion L4-L5 [ Lumbar stenosis, lumbar radiculopathy, status post laminectomy] 11/14/18 Patient seen at bedside. Daughters and son-in-law at bedside. A&Ox3 Dressing and incision c/d/i No calf tenderness, erythema, or warmth. Neurovascularly intact b/l LE. LSO in room. Labwork, vitals, and medications reviewed. Pain control: Adequate Participating in therapy. All questions and concerns addressed. Educated on use of incentive spirometer, ambulation, and hydration. Patient educated on post-operative restrictions and care. Addressed: see above. The patient's postoperative course was uneventful. Progressed from intravenous analgesic needs to oral analgesic needs only. Remained neurovascularly intact a nd mobilized satisfactorily. All radiographic studies were satisfactory. Patient course and disposition discussed with Dr. Hardy. Patient is discharged to rehab with plan for rehabilitation and outpatient orthopedic follow up has been arranged. - Time Spent with Patient Total time spent providing and/or coordinating discharge services: - Discharge Medications Prescriptions: New Docusate Sodium [Colace] 100 mg PO BID 5 Days #10 capsule OxyCODONE Immed Rel [Roxicodone 5 MG] 5 mg PO Q6HR PRN 5 Days #20 tablet PRN Reason: Severe Pain Continued Antiox#10/Om3/Dha/Epa/Lut/Zeax [I-Caps with Lutein-Hildebran 3 Sfg] 1 cap PO QAM Aspirin [Lo-Dose Aspirin EC] 81 mg PO HS Atorvastatin [Lipitor] 40 mg PO HS Cholecalciferol (D-3) [Vitamin D] 5,000 unit PO QAM Ranitidine HCl [Acid Home Service Technician] 150 mg PO BID Carvedilol 12.5 mg PO BID Dutasteride 0.5 mg PO HS Insulin Aspart Prot/Insuln Asp [Novolog Mix 70-30 Vial] 30 - 40 unit SQ TIDWM Magnesium Oxide [Magnesium] 400 mg PO BID Furosemide [Lasix] 20 mg PO Q48H NIFEdipine [Nifedipine ER] 30 mg PO QPM Clopidogrel [Plavix] 75 mg PO DAILY Gabapentin [Neurontin] 300 mg PO HS Tramadol HCl [Ultram] 50 mg PO QID PRN PRN Reason: Pain Home Medications: Antiox#10/Om3/Dha/Epa/Lut/Zeax [I-Caps with Lutein-Hildebran 3 Sfg] 1 cap PO QAM 07/08/17 [History] Aspirin [Lo-Dose Aspirin EC] 81 mg PO HS 07/08/17 [History] Atorvastatin [Lipitor] 40 mg PO HS 07/08/17 [History] Cholecalciferol (D-3) [Vitamin D] 5,000 unit PO QAM 07/08/17 [History] Ranitidine HCl [Acid Home Service Technician] 150 mg PO BID 07/08/17 [History] Carvedilol 12.5 mg PO BID 07/19/18 [History] Dutasteride 0.5 mg PO HS 07/19/18 [History] Insulin Aspart Prot/Insuln Asp [Novolog Mix 70-30 Vial] 30 - 40 unit SQ TIDWM 07/19/18 [History] Magnesium Oxide [Magnesium] 400 mg PO BID 07/19/18 [History] Furosemide [Lasix] 20 mg PO Q48H 09/13/18 [History] NIFEdipine [Nifedipine ER] 30 mg PO QPM 09/14/18 [History] Clopidogrel [Plavix] 75 mg PO DAILY 11/14/18 [History] Gabapentin [Neurontin] 300 mg PO HS 11/14/18 [History] Tramadol HCl [Ultram] 50 mg PO QID PRN 11/14/18 [History] Docusate Sodium [Colace] 100 mg PO BID 5 Days #10 capsule 11/15/18 [Rx] OxyCODONE Immed Rel [Roxicodone 5 MG] 5 mg PO Q6HR PRN 5 Days #20 tablet [Rx] Allergies/Adverse Reactions: Allergy/AdvReac Type Severity Reaction Status Date / Time hydrocodone Allergy Unknown Verified 11/14/18 07:24 clonidine AdvReac Nausea Verified 11/14/18 07:24 enalaprilat [From Vasotec] AdvReac Nausea Verified 11/14/18 07:24 fentanyl AdvReac Nausea Verified 11/14/18 07:24 lisinopril AdvReac Nausea Verified 11/14/18 07:24 naproxen AdvReac Nausea Verified 11/14/18 07:24 simvastatin AdvReac Nausea Verified 11/14/18 07:24 tramadol AdvReac Nausea Verified 11/14/18 07:24 Date of admission: 11/14/18 12:13 Primary care physician: Nat Torres Consults: 11/14/18 12:15 Consult to Occupational Therapy [CONS] Routine Comment: Evaluate, develop and implement POC Reason for Consult: Postoperative rehabilitation Does patient have active BEDREST order?: No Is patient medically & hemodynamically stable?: Yes Patient assessed for mobility or mobilized this visit?: No Consult to Physical Therapy [CONS] Routine Comment: Evaluate, develop and implement POC Reason for Consult: Postoperative rehabilitation Does patient have active BEDREST order?: No Is patient medically & hemodynamically stable?: Yes Patient assessed for mobility or mobilized this visit?: No Consult to Spine Navigator [CONS] [CONS] Routine Discharging clinician: Stephen Hardy Jr Anticipated date of discharge: 11/17/18 - VTE Documentation of Mechanical Device: Graduated compression elastic hosiery Labs on day of discharge: Labs from last 24 hours 11/16/18 11/16/18 11/16/18 21:05 16:42 11:12 POC Glucose 274 H 293 H 316 H - Impressions ITS Impressions Fluoroscopy 11/14/18 10:51 IMPRESSION: Intraprocedural fluoroscopic spot images as above. See separate procedure report for more information. D/ / 11/14/2018 11:17:39 Sabino Damon MD / Araceli Paez Interpreting Provider: aSbino Damon MD Lumbar Spine X-Ray 11/14/18 10:51 IMPRESSION: Intraprocedural fluoroscopic spot images as above. See separate procedure report for more information. D/ / 11/14/2018 11:17:39 Sabino Damon MD / Araceli Paez Interpreting Provider: Sabino Damon MD Lumbar Spine X-Ray 11/17/18 09:00 IMPRESSION: 1. Status post posterior fusion on the right at L4-5. No immediate complication. 2. Mild to moderate multilevel degenerative changes as described, most significant at L5-S1. D/ 11/17/2018 09:32:50 Alina White MD / Araceli Paez Interpreting Provider: Alina White MD - Patient Status Disposition: Transfer Hospital Swing Bed Condition: Good Functional capacity at discharge: uses cane/walker Overall status at discharge: patient is progressing back to baseline - Discharge Instructions Instructions: Laxative, Stool Softeners (By mouth), Oxycodone, Rapid Release (By mouth), Lumbar Spinal Fusion (GEN) Follow Up With: Geovanna Nichols PAC [Physician Realty Loan Specialist] - 11/29/18 8:45 am (Follow up PLIF L4-L5) Raven Rhodes DO [Primary Care Provider] - Bravo Mercado DO [Partnered Physician] - 01/25/19 3:10 pm (3 months f/u ) Tr Lund DO [Partnered Physician] - 01/02/19 1:45 pm (2 Month f/u spinalstenosis) - Diet and Activity Activity: as per physical therapy Diet: advance to your usual diet
[2018-11-17 15:54] VITALS: BP 111/64
== END 2018-11-17 17:00 | disposition other institution (70) | DRG 454 ==
LOC: SAMDAY 06:01 → 3NENU 12:13
PROVIDERS: ADMIT Orthopaedic Surgery Orthopaedic Surgery of the Spine; ATTEND Orthopaedic Surgery Orthopaedic Surgery of the Spine

== ENCOUNTER 2018-12-01 17:41 | Inpatient (IN) ==
[2018-12-01 18:14] LABS: Basophils # 0.1 K/mcL (0.0-0.2); Basophils % 0.9 %; Eosinophils # 0.5 K/mcL (0.0-0.6); Eosinophils % 5.4 %; Hemoglobin 11.9 g/dL (12.9-16.9); Immature Granulocytes % 0.5 % (0-4); Lymphocytes # 1.6 K/mcL (0.6-4.6); Lymphocytes % 16.1 %; Mean Corpuscular HGB Conc 32.2 g/dL (31.6-35.5); Mean Corpuscular Volume 96.4 fL (83.0-100.0); Mean Platelet Volume 8.5 fL (9.4-12.4); Monocytes # 0.7 K/mcL (0.0-1.3); Neutrophils # 6.8 K/mcL (1.6-8.9); Platelet Count 602 K/mcL (140-400); Red Blood Count 3.84 M/mcL (4.19-5.50); Red Cell Distribution Width 13.2 % (11.5-14.5); Segmented Neutrophils % 70.1 %; White Blood Count 9.6 K/mcL (4.3-11.1)
[2018-12-01 18:23] LABS: INR 1.1; Prothrombin Time 12.3 Seconds (9.4-12.1)
[2018-12-01] MEDS: D5% in 0.9% NACL 1,000 ML IVC SCH (18:24)
[2018-12-01 18:25] LABS: Acetaminophen < 10 mcg/mL (10-20); Salicylate < 2.5 mg/dL (15.0-30.0)
[2018-12-01 18:26] LABS: Activated Partial Thrombo Time 31.5 Seconds (26.0-36.0)
[2018-12-01 18:27] LABS: Alanine Aminotransferase 14 Units/L (7-52); Albumin 3.8 g/dL (3.5-5.7); Albumin/Globulin Ratio 1.4 (1.1-2.2); Alkaline Phosphatase 76 Units/L (34-104); Aspartate Amino Transferase 15 Units/L (13-39); BUN/Creatinine Ratio 15 (6-26); Bilirubin,Direct 0.1 mg/dL (0.0-0.2); Bilirubin,Indirect 0.3 mg/dL (0.0-1.2); Bilirubin,Total 0.4 mg/dL (0.3-1.0); Blood Urea Nitrogen 23 mg/dL (8-23); C-Reactive Protein < 5 mg/L (Less than 10); Calcium 8.7 mg/dL (8.6-10.3); Carbon Dioxide 25 mEq/L (23-29); Chloride 106 mEq/L (98-107); Creatine Kinase 45 Units/L (30-223); Ethanol < 10 mg/dL (Less than 10); Globulin 2.8 g/dL (2.4-3.5); Glucose 176 mg/dL (70-105); Osmolality,Calculated 294 (280-300); Potassium 3.1 mEq/L (3.5-5.1); Sodium 138 mEq/L (136-145); Total Protein 6.6 g/dL (6.4-8.9); eGFR For African Americans 52 (> 60); eGFR For Non-African Americans 43 (> 60)
[2018-12-01 18:48] LABS: Thyroid Stimulating Hormone 1.412 mcIU/mL (0.340-5.600)
[2018-12-01 18:53] LABS: Bilirubin,Urine Negative (Negative); Blood,Urine Negative (Negative); Clarity,Urine Clear (Clear); Color,Urine Yellow (Yellow); Glucose,Urine (UA) Normal (Normal); Ketones,Urine Negative (Negative); Leukocyte Esterase,Urine Negative (Negative); Nitrite,Urine Negative (Negative); PH,Urine 7.5 pH Units (5.0-8.0); Protein,Urine 100 mg/dL (Neg-Trace); Specific Gravity,Urine 1.011 (1.010-1.025); Urobilinogen,Urine Normal (Normal)
[2018-12-01 18:55] LABS: Troponin I < 0.03 ng/mL (< 0.04)
[2018-12-01 18:55] LABS: Bacteria,Urine None Seen per hpf (None-Few); Hyaline Casts,Urine None Seen per lpf (None-Few); RBC,Urine 0-3 per hpf (0-3); Squamous Epithelial Cell,Urine Moderate per lpf (None-Few); WBC,Urine 0-3 per hpf (0-3)
[2018-12-01] MEDS ORDERED: Potassium Chloride Elixir 20 MEQ/15 ML UDC PO ONE (19:01)
[2018-12-01 19:02] LABS: Amphetamine Screen,Urine Negative ng/mL (Cutoff=1000); Barbiturate Screen,Urine Negative ng/mL (Cutoff=200); Benzodiazepines Screen,Urine Negative ng/mL (Cutoff=200); Cannabinoid Screen,Urine Negative ng/mL (Cutoff = 50); Cocaine Screen,Urine Negative ng/mL (Cutoff= 300); Opiate Screen,Urine Negative ng/mL (Cutoff=300); Phencyclidine Screen,Urine Negative ng/mL (Cutoff=25)
[2018-12-01 19:42] LABS: Magnesium 2.2 mg/dL (1.6-2.6)
[2018-12-01] MEDS ORDERED: Ondansetron 4 MG/2 ML VIAL IVP ONE (21:03)
[2018-12-01] MEDS ORDERED: Morphine Sulfate 2 MG/ML SYRINGE IVP ONE (21:03)
[2018-12-02] MEDS ORDERED: D5% in Water 1,000 ML IVC PRN (01:00)
[2018-12-02] MEDS ORDERED: *HR* Dextrose 50 % in Water (Syg) 50 ML SYRINGE IVP PRN (01:00)
[2018-12-02] MEDS ORDERED: Dextrose Gel 15 GM/37.5 ML TUBE PO PRN ×2 (01:00)
[2018-12-02] MEDS ORDERED: Naloxone 0.4 MG/ML INJ IVP PRN (01:24)
[2018-12-02] MEDS: *HR* OxyCODONE Immed Rel 5 MG TABLET PO PRN ×3 (01:45→19:42)
[2018-12-02] MEDS: D5% in 0.9% NACL 1,000 ML IVC SCH (04:34)
[2018-12-02 05:29] LABS: Hematocrit 34.1 % (37.5-50.1); Hemoglobin 10.9 g/dL (12.9-16.9); Mean Corpuscular Hemoglobin 31.1 pg (28.0-33.3); Mean Corpuscular Volume 97.4 fL (83.0-100.0); Mean Platelet Volume 8.8 fL (9.4-12.4); Platelet Count 554 K/mcL (140-400); Red Cell Distribution Width 13.3 % (11.5-14.5)
[2018-12-02 05:32] LABS: White Blood Count 18.6 K/mcL (4.3-11.1)
[2018-12-02] MEDS: *HR* Heparin 5,000 UNIT/ML VIAL SQ SCH ×2 (05:41→17:15)
[2018-12-02 06:16] LABS: Calcium 8.5 mg/dL (8.6-10.3); Potassium 3.9 mEq/L (3.5-5.1)
[2018-12-02] MEDS: Insulin LISPRO 300 UNITS/3 ML VIAL SQ SCH ×4 (07:59→21:25)
[2018-12-02] MEDS ORDERED: Acetaminophen 325 MG TABLET PO PRN (08:43)
[2018-12-02] MEDS: Insulin NPH/REG 70/30 100 UNIT/ML (x5UNIT) SQ SCH ×2 (10:26→17:14)
[2018-12-02] MEDS: Famotidine 20 MG TABLET PO SCH ×2 (10:27→21:23)
[2018-12-02] MEDS: Furosemide 20 MG TABLET PO SCH (10:27)
[2018-12-02] MEDS: Cholecalciferol (D-3) 1,000 UNIT (25MCG) TABLET PO SCH (10:27)
[2018-12-02] MEDS: Magnesium Oxide 400 MG TABLET PO SCH ×2 (10:28→21:23)
[2018-12-02] MEDS: tiZANidine 4 MG TABLET PO PRN (10:35)
[2018-12-02] MEDS: NIFEdipine XL (24 HR) 30 MG TAB.ER.24 PO SCH (17:14)
[2018-12-02] MEDS: Aspirin Enteric Coated 81 MG Tablet PO SCH (21:23)
[2018-12-02] MEDS: Finasteride 5 MG TABLET PO SCH (21:23)
[2018-12-02] MEDS: Gabapentin 300 MG CAPSULE PO SCH (21:23)
[2018-12-02] MEDS ORDERED: Melatonin 3 MG TABLET PO PRN (22:39)
[2018-12-03] MEDS: *HR* OxyCODONE Immed Rel 5 MG TABLET PO PRN ×3 (03:07→20:24)
[2018-12-03 04:19] LABS: Hematocrit 32.7 % (37.5-50.1); Hemoglobin 10.4 g/dL (12.9-16.9); Mean Corpuscular HGB Conc 31.8 g/dL (31.6-35.5); Mean Corpuscular Volume 97.6 fL (83.0-100.0); Mean Platelet Volume 8.9 fL (9.4-12.4); Platelet Count 453 K/mcL (140-400); Red Blood Count 3.35 M/mcL (4.19-5.50); Red Cell Distribution Width 13.4 % (11.5-14.5)
[2018-12-03 04:26] LABS: White Blood Count 8.5 K/mcL (4.3-11.1)
[2018-12-03 04:35] LABS: Calcium 8.4 mg/dL (8.6-10.3); Potassium 3.8 mEq/L (3.5-5.1)
[2018-12-03] MEDS: *HR* Heparin 5,000 UNIT/ML VIAL SQ SCH ×2 (05:59→17:30)
[2018-12-03] MEDS: Cholecalciferol (D-3) 1,000 UNIT (25MCG) TABLET PO SCH (09:45)
[2018-12-03] MEDS: Magnesium Oxide 400 MG TABLET PO SCH ×2 (09:46→20:25)
[2018-12-03] MEDS: Insulin NPH/REG 70/30 100 UNIT/ML (x5UNIT) SQ SCH ×2 (09:46→17:31)
[2018-12-03] MEDS: Famotidine 20 MG TABLET PO SCH ×2 (09:46→20:24)
[2018-12-03] MEDS: Insulin LISPRO 300 UNITS/3 ML VIAL SQ SCH ×4 (09:46→20:26)
[2018-12-03] MEDS: NIFEdipine XL (24 HR) 30 MG TAB.ER.24 PO SCH (17:32)
[2018-12-03] MEDS: tiZANidine 4 MG TABLET PO PRN (20:23)
[2018-12-03] MEDS: Aspirin Enteric Coated 81 MG Tablet PO SCH (20:25)
[2018-12-03] MEDS: Finasteride 5 MG TABLET PO SCH (20:25)
[2018-12-03] MEDS: Gabapentin 300 MG CAPSULE PO SCH (20:26)
[2018-12-04 02:16] LABS: Hematocrit 31.5 % (37.5-50.1); Hemoglobin 10.2 g/dL (12.9-16.9); Mean Corpuscular HGB Conc 32.4 g/dL (31.6-35.5); Mean Corpuscular Hemoglobin 31.7 pg (28.0-33.3); Mean Corpuscular Volume 97.8 fL (83.0-100.0); Mean Platelet Volume 8.8 fL (9.4-12.4); Platelet Count 414 K/mcL (140-400); Red Blood Count 3.22 M/mcL (4.19-5.50); Red Cell Distribution Width 13.1 % (11.5-14.5); White Blood Count 12.5 K/mcL (4.3-11.1)
[2018-12-04 02:38] LABS: Calcium 8.9 mg/dL (8.6-10.3); Potassium 3.5 mEq/L (3.5-5.1)
[2018-12-04] MEDS: *HR* Heparin 5,000 UNIT/ML VIAL SQ SCH (05:41)
[2018-12-04 06:36] VITALS: BP 144/72
[2018-12-04] MEDS: Insulin LISPRO 300 UNITS/3 ML VIAL SQ SCH (07:00)
[2018-12-04] MEDS: Magnesium Oxide 400 MG TABLET PO SCH (07:24)
[2018-12-04] MEDS: Furosemide 20 MG TABLET PO SCH (07:24)
[2018-12-04] MEDS: Cholecalciferol (D-3) 1,000 UNIT (25MCG) TABLET PO SCH (07:24)
[2018-12-04] MEDS: Famotidine 20 MG TABLET PO SCH (07:24)
[2018-12-04] MEDS: Insulin NPH/REG 70/30 100 UNIT/ML (x5UNIT) SQ SCH (07:24)
[2018-12-04] MEDS: *HR* OxyCODONE Immed Rel 5 MG TABLET PO PRN (07:26)
== END 2018-12-04 10:45 | disposition home or self-care (01) | DRG 639 ==
LOC: 3BNU 17:41 → EMEROOARM 17:41 → 3BNU 22:38
PROVIDERS: ADMIT Internal Medicine; ATTEND Student in an Organized Health Care Education/Training Program

== ENCOUNTER 2018-12-09 03:56 | Observation (INO) ==
[2018-12-09] MEDS ORDERED: *HR* OxyCODONE/APAP 5/325 TABLET PO ONE ×2 (04:49→11:44)
[2018-12-09 05:48] LABS: Bilirubin,Urine Negative (Negative); Blood,Urine Negative (Negative); Clarity,Urine Clear (Clear); Color,Urine Yellow (Yellow); Glucose,Urine (UA) >=1000 mg/dL (Normal); Ketones,Urine 15 mg/dL (Negative); Leukocyte Esterase,Urine Negative (Negative); Nitrite,Urine Positive (Negative); Protein,Urine 100 mg/dL (Neg-Trace); Specific Gravity,Urine > 1.030 (1.010-1.025); Urobilinogen,Urine Normal (Normal)
[2018-12-09 05:49] LABS: Bacteria,Urine Few per hpf (None-Few); Hyaline Casts,Urine None Seen per lpf (None-Few); RBC,Urine 0-3 per hpf (0-3); Squamous Epithelial Cell,Urine Many per lpf (None-Few); WBC,Urine 30-50 per hpf (0-3)
[2018-12-09] MEDS ORDERED: cefTRIAXone 1,000 MG in Water for inj. (sterile) 10 ML IVP ONE (05:56)
[2018-12-09] MEDS ORDERED: *HR* OxyCODONE Immed Rel 5 MG TABLET PO ONE (07:41)
[2018-12-09] MEDS ORDERED: *HR* HYDROmorphone (PF) 1 MG/ML SYRINGE IVP ONE (09:54)
[2018-12-09] MEDS ORDERED: Mag Hydrox/Al Hydrox/Simeth 30 ML UDC PO PRN (12:03)
[2018-12-09] MEDS ORDERED: Ondansetron ODT 4 MG TAB.RAPDIS SL PRN (12:03)
[2018-12-09] MEDS ORDERED: MOM Conc 10 ML UD.LIQ PO PRN (12:03)
[2018-12-09] MEDS ORDERED: Acetaminophen 325 MG TABLET PO PRN (12:03)
[2018-12-09] MEDS ORDERED: Naloxone 0.4 MG/ML INJ IVP PRN (12:03)
[2018-12-09] MEDS ORDERED: Furosemide 20 MG TABLET PO SCH (12:15)
[2018-12-09] MEDS: traMADol 50 MG TABLET PO PRN ×2 (15:24→22:17)
[2018-12-09] MEDS: tiZANidine 4 MG TABLET PO PRN (15:24)
[2018-12-09] MEDS ORDERED: D5% in Water 1,000 ML IVC PRN (17:45)
[2018-12-09] MEDS ORDERED: *HR* Dextrose 50 % in Water (Syg) 50 ML SYRINGE IVP PRN (17:45)
[2018-12-09] MEDS ORDERED: Dextrose Gel 15 GM/37.5 ML TUBE PO PRN ×2 (17:45)
[2018-12-09] MEDS: Insulin LISPRO 300 UNITS/3 ML VIAL SQ SCH ×2 (18:06→21:06)
[2018-12-09] MEDS: NIFEdipine XL (24 HR) 30 MG TAB.ER.24 PO SCH (18:06)
[2018-12-09] MEDS: *HR* Acetaminophen w/Cod 300-30 mg 1 TAB TABLET PO PRN (18:06)
[2018-12-09] MEDS: *HR* OxyCODONE Immed Rel 5 MG TABLET PO PRN (19:43)
[2018-12-09] MEDS: Gabapentin 300 MG CAPSULE PO SCH (19:44)
[2018-12-09] MEDS: Finasteride 5 MG TABLET PO SCH (19:44)
[2018-12-09] MEDS: Aspirin Enteric Coated 81 MG Tablet PO SCH (19:44)
[2018-12-09] MEDS: Magnesium Oxide 400 MG TABLET PO SCH (19:44)
[2018-12-09] MEDS: Famotidine 20 MG TABLET PO SCH (19:44)
[2018-12-09] MEDS ORDERED: NON-FORMULARY MEDICATION 1 EACH EACH (Insulin Aspart Prot/Insuln Asp [Novolog Mix 70-30 Vi SQ SCH (21:00)
[2018-12-09] MEDS: Insulin NPH/REG 70/30 100 UNIT/ML (x5UNIT) SQ SCH (21:06)
[2018-12-09] MEDS: Melatonin 3 MG TABLET PO PRN (23:52)
[2018-12-10] MEDS: *HR* Acetaminophen w/Cod 300-30 mg 1 TAB TABLET PO PRN ×2 (00:50→12:45)
[2018-12-10 04:11] LABS: Hematocrit 36.7 % (37.5-50.1); Mean Corpuscular HGB Conc 32.4 g/dL (31.6-35.5); Mean Corpuscular Hemoglobin 31.1 pg (28.0-33.3); Mean Corpuscular Volume 95.8 fL (83.0-100.0); Mean Platelet Volume 8.8 fL (9.4-12.4); Platelet Count 322 K/mcL (140-400); Red Blood Count 3.83 M/mcL (4.19-5.50); Red Cell Distribution Width 13.2 % (11.5-14.5); White Blood Count 7.4 K/mcL (4.3-11.1)
[2018-12-10 04:26] LABS: Hemoglobin 11.9 g/dL (12.9-16.9)
[2018-12-10 04:30] LABS: Magnesium 1.9 mg/dL (1.6-2.6); Potassium 3.7 mEq/L (3.5-5.1)
[2018-12-10] MEDS: cefTRIAXone 1,000 MG in Water for inj. (sterile) 10 ML IVP SCH (06:03)
[2018-12-10] MEDS: Magnesium Oxide 400 MG TABLET PO SCH ×2 (08:24→21:10)
[2018-12-10] MEDS: tiZANidine 4 MG TABLET PO PRN (08:24)
[2018-12-10] MEDS: Famotidine 20 MG TABLET PO SCH (08:24)
[2018-12-10] MEDS: *HR* OxyCODONE Immed Rel 5 MG TABLET PO PRN ×3 (08:24→21:09)
[2018-12-10] MEDS: Insulin NPH/REG 70/30 100 UNIT/ML (x5UNIT) SQ SCH ×2 (08:25→21:10)
[2018-12-10] MEDS: Insulin LISPRO 300 UNITS/3 ML VIAL SQ SCH ×4 (08:26→21:10)
[2018-12-10] MEDS ORDERED: *HR* OxyCODONE Immed Rel 5 MG TABLET PO PRN (15:41)
[2018-12-10] MEDS: NIFEdipine XL (24 HR) 30 MG TAB.ER.24 PO SCH (18:48)
[2018-12-10] MEDS: Aspirin Enteric Coated 81 MG Tablet PO SCH (21:10)
[2018-12-10] MEDS: Finasteride 5 MG TABLET PO SCH (21:10)
[2018-12-10] MEDS: Gabapentin 300 MG CAPSULE PO SCH (21:10)
[2018-12-10] MEDS: Melatonin 3 MG TABLET PO PRN (21:12)
[2018-12-11 05:51] LABS: White Blood Count 7.4 K/mcL (4.3-11.1)
[2018-12-11 05:52] LABS: Basophils # 0.1 K/mcL (0.0-0.2); Basophils % 0.7 %; Eosinophils # 0.5 K/mcL (0.0-0.6); Eosinophils % 6.9 %; Hematocrit 35.5 % (37.5-50.1); Hemoglobin 11.6 g/dL (12.9-16.9); Immature Granulocytes % 0.8 % (0-4); Lymphocytes # 1.6 K/mcL (0.6-4.6); Mean Corpuscular HGB Conc 32.7 g/dL (31.6-35.5); Mean Corpuscular Hemoglobin 31.2 pg (28.0-33.3); Mean Corpuscular Volume 95.4 fL (83.0-100.0); Monocytes # 0.9 K/mcL (0.0-1.3); Monocytes % 11.7 %; Neutrophils # 4.4 K/mcL (1.6-8.9); Platelet Count 305 K/mcL (140-400); Red Blood Count 3.72 M/mcL (4.19-5.50); Red Cell Distribution Width 13.2 % (11.5-14.5); Segmented Neutrophils % 58.9 %
[2018-12-11] MEDS: cefTRIAXone 1,000 MG in Water for inj. (sterile) 10 ML IVP SCH (06:06)
[2018-12-11 06:09] LABS: Calcium 8.9 mg/dL (8.6-10.3); Potassium 3.7 mEq/L (3.5-5.1)
[2018-12-11] MEDS: Insulin LISPRO 300 UNITS/3 ML VIAL SQ SCH ×4 (07:09→20:23)
[2018-12-11] MEDS: Magnesium Oxide 400 MG TABLET PO SCH ×2 (07:33→20:23)
[2018-12-11] MEDS: Famotidine 20 MG TABLET PO SCH (07:33)
[2018-12-11] MEDS: *HR* OxyCODONE Immed Rel 5 MG TABLET PO PRN ×2 (07:36→18:00)
[2018-12-11] MEDS: Insulin NPH/REG 70/30 100 UNIT/ML (x5UNIT) SQ SCH ×2 (07:37→20:24)
[2018-12-11] MEDS: tiZANidine 4 MG TABLET PO PRN ×2 (12:15→20:22)
[2018-12-11] MEDS: *HR* Acetaminophen w/Cod 300-30 mg 1 TAB TABLET PO PRN (12:15)
[2018-12-11] MEDS: NIFEdipine XL (24 HR) 30 MG TAB.ER.24 PO SCH (18:00)
[2018-12-11] MEDS: Aspirin Enteric Coated 81 MG Tablet PO SCH (20:22)
[2018-12-11] MEDS: Finasteride 5 MG TABLET PO SCH (20:23)
[2018-12-11] MEDS: Gabapentin 300 MG CAPSULE PO SCH (20:23)
[2018-12-11] MEDS: Melatonin 3 MG TABLET PO PRN (20:23)
[2018-12-12 04:08] LABS: Basophils # 0.1 K/mcL (0.0-0.2); Eosinophils # 0.7 K/mcL (0.0-0.6); Eosinophils % 10.3 %; Hematocrit 33.6 % (37.5-50.1); Hemoglobin 11.1 g/dL (12.9-16.9); Immature Granulocytes % 0.7 % (0-4); Lymphocytes # 1.8 K/mcL (0.6-4.6); Lymphocytes % 25.3 %; Mean Corpuscular Hemoglobin 31.2 pg (28.0-33.3); Mean Corpuscular Volume 94.4 fL (83.0-100.0); Mean Platelet Volume 9.1 fL (9.4-12.4); Monocytes # 0.8 K/mcL (0.0-1.3); Monocytes % 11.6 %; Neutrophils # 3.6 K/mcL (1.6-8.9); Platelet Count 309 K/mcL (140-400); Red Blood Count 3.56 M/mcL (4.19-5.50); Red Cell Distribution Width 13.1 % (11.5-14.5); Segmented Neutrophils % 51.1 %; White Blood Count 7.1 K/mcL (4.3-11.1)
[2018-12-12 04:23] LABS: Calcium 8.9 mg/dL (8.6-10.3); Potassium 3.7 mEq/L (3.5-5.1)
[2018-12-12] MEDS: *HR* OxyCODONE Immed Rel 5 MG TABLET PO PRN (04:34)
[2018-12-12] MEDS: cefTRIAXone 1,000 MG in Water for inj. (sterile) 10 ML IVP SCH (10:05)
[2018-12-12] MEDS: Insulin LISPRO 300 UNITS/3 ML VIAL SQ SCH ×2 (10:06→13:17)
[2018-12-12] MEDS: Insulin NPH/REG 70/30 100 UNIT/ML (x5UNIT) SQ SCH (10:06)
[2018-12-12] MEDS: Famotidine 20 MG TABLET PO SCH (10:07)
[2018-12-12] MEDS: Magnesium Oxide 400 MG TABLET PO SCH (10:07)
[2018-12-12] MEDS: *HR* Acetaminophen w/Cod 300-30 mg 1 TAB TABLET PO PRN (10:15)
[2018-12-12 12:13] VITALS: BP 113/66
== END 2018-12-12 15:05 ==
LOC: EMEROOARM 03:56 → 3NENU 03:56 → SUATTDRO 10:32 → 3NENU 11:10
PROVIDERS: ADMIT Internal Medicine; ATTEND Student in an Organized Health Care Education/Training Program

== ENCOUNTER 2019-06-21 06:46 | Observation (INO) ==
[2019-06-21] MEDS ORDERED: Aspirin 81 MG TAB.CHEW PO ONE (07:01)
[2019-06-21 07:44] LABS: Prothrombin Time 10.8 Seconds (9.4-12.1)
[2019-06-21 07:46] LABS: Activated Partial Thrombo Time 29.3 Seconds (26.0-36.0)
[2019-06-21 07:47] LABS: Basophils # 0.1 K/mcL (0.0-0.2); Basophils % 0.8 %; Eosinophils # 0.4 K/mcL (0.0-0.6); Eosinophils % 4.9 %; Hemoglobin 14.6 g/dL (12.9-16.9); Immature Granulocytes % 0.3 % (0-4); Lymphocytes # 1.5 K/mcL (0.6-4.6); Lymphocytes % 20.7 %; Mean Corpuscular HGB Conc 33.2 g/dL (31.6-35.5); Mean Corpuscular Hemoglobin 31.2 pg (28.0-33.3); Mean Platelet Volume 9.2 fL (9.4-12.4); Monocytes # 0.9 K/mcL (0.0-1.3); Monocytes % 11.9 %; Neutrophils # 4.5 K/mcL (1.6-8.9); Platelet Count 242 K/mcL (140-400); Red Blood Count 4.68 M/mcL (4.19-5.50); Red Cell Distribution Width 13.6 % (11.5-14.5); Segmented Neutrophils % 61.4 %; White Blood Count 7.4 K/mcL (4.3-11.1)
[2019-06-21 07:53] LABS: BUN/Creatinine Ratio 17 (6-26); Blood Urea Nitrogen 28 mg/dL (8-23); Calcium 9.1 mg/dL (8.6-10.3); Carbon Dioxide 26 mEq/L (23-29); Chloride 107 mEq/L (98-107); Glucose 133 mg/dL (70-105); Osmolality,Calculated 299 (280-300); Potassium 3.6 mEq/L (3.5-5.1); Sodium 141 mEq/L (136-145); eGFR For African Americans 49 (> 60); eGFR For Non-African Americans 40 (> 60)
[2019-06-21 07:54] LABS: Troponin I < 0.03 ng/mL (< 0.04)
[2019-06-21] MEDS ORDERED: Isovue-370 500 ML BOTTLE IVP ONE (08:01)
[2019-06-21] MEDS ORDERED: 0.9 % Sodium Chloride 1,000 ML IVC ONE (08:01)
[2019-06-21] MEDS ORDERED: Nitroglycerin 0.4 MG TAB.SUBL SL STA (08:03)
[2019-06-21] MEDS ORDERED: Naloxone 0.4 MG/ML INJ IVP PRN (09:11)
[2019-06-21] MEDS ORDERED: Acetaminophen 325 MG TABLET PO PRN (09:11)
[2019-06-21] MEDS ORDERED: Ondansetron 4 MG/2 ML VIAL IVP PRN (09:11)
[2019-06-21] MEDS ORDERED: Dextrose Gel 15 GM/37.5 ML TUBE PO PRN ×2 (10:16)
[2019-06-21] MEDS ORDERED: *HR* Dextrose 50 % in Water (Syg) 50 ML SYRINGE IVP PRN (10:16)
[2019-06-21] MEDS ORDERED: D5% in Water 1,000 ML IVC PRN (10:16)
[2019-06-21] MEDS: Insulin LISPRO 300 UNITS/3 ML VIAL SQ SCH ×2 (12:02→16:56)
[2019-06-21] MEDS: *HR* Heparin 5,000 UNIT/ML VIAL SQ SCH ×2 (13:53→21:50)
[2019-06-21] MEDS ORDERED: carvediloL 6.25 MG TABLET PO SCH (17:00)
[2019-06-21] MEDS ORDERED: Finasteride 5 MG TABLET PO SCH (18:00)
[2019-06-21] MEDS ORDERED: Insulin DETEMIR 100 UNIT/ML X5UNITS SQ SCH (21:00)
[2019-06-21] MEDS ORDERED: Insulin LISPRO 300 UNITS/3 ML VIAL SQ SCH (21:00)
[2019-06-21] MEDS ORDERED: Gabapentin 300 MG CAPSULE PO SCH (21:00)
[2019-06-21] MEDS: Magnesium Oxide 400 MG TABLET PO SCH (21:50)
[2019-06-22 06:06] LABS: Basophils # 0.1 K/mcL (0.0-0.2); Eosinophils # 0.3 K/mcL (0.0-0.6); Eosinophils % 4.9 %; Hematocrit 42.1 % (37.5-50.1); Immature Granulocytes % 0.3 % (0-4); Lymphocytes # 1.6 K/mcL (0.6-4.6); Lymphocytes % 23.5 %; Mean Corpuscular HGB Conc 33.3 g/dL (31.6-35.5); Mean Corpuscular Hemoglobin 31.3 pg (28.0-33.3); Mean Corpuscular Volume 94.2 fL (83.0-100.0); Mean Platelet Volume 9.1 fL (9.4-12.4); Monocytes # 0.7 K/mcL (0.0-1.3); Monocytes % 9.8 %; Neutrophils # 4.1 K/mcL (1.6-8.9); Platelet Count 225 K/mcL (140-400); Red Blood Count 4.47 M/mcL (4.19-5.50); Red Cell Distribution Width 13.4 % (11.5-14.5); Segmented Neutrophils % 60.5 %; White Blood Count 6.8 K/mcL (4.3-11.1)
[2019-06-22] MEDS: *HR* Heparin 5,000 UNIT/ML VIAL SQ SCH (06:07)
[2019-06-22 06:12] LABS: INR 1.1; Prothrombin Time 12.2 Seconds (9.4-12.1)
[2019-06-22 06:40] LABS: Calcium 8.7 mg/dL (8.6-10.3); Chol/HDL Ratio 3.7 (0-4.9); Potassium 3.6 mEq/L (3.5-5.1)
[2019-06-22] MEDS: Insulin LISPRO 300 UNITS/3 ML VIAL SQ SCH ×3 (07:45→12:04)
[2019-06-22] MEDS ORDERED: NIFEdipine XL (24 HR) 60 MG TAB.ER.24 PO SCH ×2 (09:00→09:15)
[2019-06-22] MEDS ORDERED: Furosemide 20 MG TABLET PO SCH (09:00)
[2019-06-22] MEDS ORDERED: carvediloL 6.25 MG TABLET PO SCH (09:08)
[2019-06-22] MEDS: Magnesium Oxide 400 MG TABLET PO SCH (09:21)
[2019-06-22 10:09] VITALS: BP 165/83
[2019-06-22] MEDS ORDERED: Aspirin Enteric Coated 81 MG Tablet PO SCH (18:00)
== END 2019-06-22 12:36 | disposition home or self-care (01) ==
LOC: EMEROOARM 06:46 → 3BNU 06:46
PROVIDERS: ADMIT Internal Medicine; ATTEND Internal Medicine

== ENCOUNTER 2020-01-23 11:38 | Inpatient (IN) ==
[2020-01-23 12:09] LABS: Basophils # 0.1 K/mcL (0.0-0.2); Basophils % 0.6 %; Eosinophils # 0.4 K/mcL (0.0-0.6); Eosinophils % 4.4 %; Hematocrit 39.1 % (37.5-50.1); Hemoglobin 12.3 g/dL (12.9-16.9); Immature Granulocytes % 0.2 % (0-4); Lymphocytes # 1.2 K/mcL (0.6-4.6); Lymphocytes % 15.1 %; Mean Corpuscular HGB Conc 31.5 g/dL (31.6-35.5); Mean Corpuscular Hemoglobin 29.9 pg (28.0-33.3); Mean Corpuscular Volume 94.9 fL (83.0-100.0); Mean Platelet Volume 9.6 fL (9.4-12.4); Monocytes # 0.9 K/mcL (0.0-1.3); Monocytes % 10.4 %; Neutrophils # 5.7 K/mcL (1.6-8.9); Platelet Count 218 K/mcL (140-400); Red Blood Count 4.12 M/mcL (4.19-5.50); Red Cell Distribution Width 13.1 % (11.5-14.5); Segmented Neutrophils % 69.3 %; White Blood Count 8.2 K/mcL (4.3-11.1)
[2020-01-23 12:14] LABS: INR 1.1; Prothrombin Time 12.6 Seconds (9.4-12.1)
[2020-01-23 12:43] LABS: Bilirubin,Urine Negative (Negative); Blood,Urine Negative (Negative); Clarity,Urine Clear (Clear); Color,Urine Colorless (Yellow); Glucose,Urine (UA) Normal (Normal); Ketones,Urine Negative (Negative); Leukocyte Esterase,Urine Negative (Negative); Nitrite,Urine Negative (Negative); Protein,Urine Negative (Neg-Trace); Specific Gravity,Urine 1.006 (1.010-1.025); Urobilinogen,Urine Normal (Normal)
[2020-01-23 13:03] LABS: Alanine Aminotransferase 27 Units/L (7-52); Albumin 3.8 g/dL (3.5-5.7); Albumin/Globulin Ratio 1.5 (1.1-2.2); Alkaline Phosphatase 61 Units/L (34-104); Aspartate Amino Transferase 18 Units/L (13-39); BUN/Creatinine Ratio 21 (6-26); Bilirubin,Total 0.5 mg/dL (0.3-1.0); Blood Urea Nitrogen 39 mg/dL (8-23); Calcium 8.6 mg/dL (8.6-10.3); Carbon Dioxide 22 mEq/L (23-29); Chloride 109 mEq/L (98-107); Globulin 2.5 g/dL (2.4-3.5); Glucose 169 mg/dL (70-105); Osmolality,Calculated 303 (280-300); Potassium 4.1 mEq/L (3.5-5.1); Sodium 140 mEq/L (136-145); Total Protein 6.3 g/dL (6.4-8.9); Troponin I < 0.03 ng/mL (< 0.04); eGFR For African Americans 42 (> 60); eGFR For Non-African Americans 35 (> 60)
[2020-01-23] MEDS ORDERED: D5% in Water 1,000 ML IVC PRN (14:03)
[2020-01-23] MEDS ORDERED: Naloxone 0.4 MG/ML INJ IVP PRN (14:03)
[2020-01-23] MEDS ORDERED: *HR* Dextrose 50 % in Water (Vial) 50 ML VIAL IVP PRN (14:03)
[2020-01-23] MEDS ORDERED: Dextrose Gel 15 GM/37.5 ML TUBE PO PRN ×2 (14:03)
[2020-01-23] MEDS ORDERED: Ondansetron 4 MG/2 ML VIAL IVP PRN (14:03)
[2020-01-23] MEDS ORDERED: Acetaminophen 325 MG TABLET PO PRN (14:03)
[2020-01-23] MEDS ORDERED: Perflutren Lipid Microsphere 1.3 ML in 0.9 % Sodium Chloride 8.7 ML IVP PRN (14:05)
[2020-01-23] MEDS: Insulin LISPRO 300 UNITS/3 ML VIAL SQ SCH (15:31)
[2020-01-23] MEDS: Aspirin 81 MG TAB.CHEW PO SCH (15:49)
[2020-01-23] MEDS: *HR* Heparin 5,000 UNIT/ML VIAL SQ SCH (18:03)
[2020-01-23] MEDS: carvediloL 6.25 MG TABLET PO SCH (22:13)
[2020-01-23] MEDS: Insulin DETEMIR 100 UNIT/ML X5UNITS SQ SCH (22:14)
[2020-01-24 02:47] LABS: Basophils # 0.1 K/mcL (0.0-0.2); Basophils % 0.8 %; Eosinophils # 0.4 K/mcL (0.0-0.6); Eosinophils % 5.2 %; Hematocrit 37.3 % (37.5-50.1); Hemoglobin 12.1 g/dL (12.9-16.9); Immature Granulocytes % 0.1 % (0-4); Lymphocytes # 1.2 K/mcL (0.6-4.6); Lymphocytes % 15.5 %; Mean Corpuscular HGB Conc 32.4 g/dL (31.6-35.5); Mean Corpuscular Hemoglobin 30.6 pg (28.0-33.3); Mean Corpuscular Volume 94.4 fL (83.0-100.0); Mean Platelet Volume 9.6 fL (9.4-12.4); Monocytes % 13.1 %; Neutrophils # 4.9 K/mcL (1.6-8.9); Platelet Count 221 K/mcL (140-400); Red Blood Count 3.95 M/mcL (4.19-5.50); Red Cell Distribution Width 13.1 % (11.5-14.5); Segmented Neutrophils % 65.3 %; White Blood Count 7.5 K/mcL (4.3-11.1)
[2020-01-24 03:10] LABS: Chol/HDL Ratio 3.5 (0-4.9)
[2020-01-24 03:11] LABS: Calcium 8.4 mg/dL (8.6-10.3); Magnesium 2.2 mg/dL (1.6-2.6); Phosphorous 3.5 mg/dL (2.7-4.5); Potassium 3.9 mEq/L (3.5-5.1)
[2020-01-24] MEDS: *HR* Heparin 5,000 UNIT/ML VIAL SQ SCH ×2 (06:05→17:18)
[2020-01-24] MEDS: Insulin LISPRO 300 UNITS/3 ML VIAL SQ SCH ×3 (07:04→17:23)
[2020-01-24] MEDS: Aspirin 81 MG TAB.CHEW PO SCH (07:49)
[2020-01-24] MEDS: carvediloL 6.25 MG TABLET PO SCH ×2 (07:49→17:18)
[2020-01-24] MEDS: Cholecalciferol (D-3) 1,000 UNIT (25MCG) TABLET PO SCH (08:55)
[2020-01-24] MEDS: Furosemide 20 MG TABLET PO SCH (08:55)
[2020-01-24] MEDS: Magnesium Oxide 400 MG TABLET PO SCH ×2 (08:55→20:46)
[2020-01-24 09:09] LABS: Estimated Average Glucose 183 mg/dl
[2020-01-24] MEDS: cloNIDine HCL 0.1 MG TABLET PO SCH ×3 (10:45→20:46)
[2020-01-24] MEDS: NIFEdipine XL (24 HR) 60 MG TAB.ER.24 PO SCH (10:45)
[2020-01-24] MEDS: Gabapentin 300 MG CAPSULE PO SCH (20:46)
[2020-01-24] MEDS: Insulin DETEMIR 100 UNIT/ML X5UNITS SQ SCH (20:46)
[2020-01-25 04:36] LABS: Hematocrit 37.3 % (37.5-50.1); Hemoglobin 12.2 g/dL (12.9-16.9); Mean Corpuscular HGB Conc 32.7 g/dL (31.6-35.5); Mean Corpuscular Volume 91.9 fL (83.0-100.0); Mean Platelet Volume 9.9 fL (9.4-12.4); Platelet Count 216 K/mcL (140-400); Red Blood Count 4.06 M/mcL (4.19-5.50); Red Cell Distribution Width 12.8 % (11.5-14.5); White Blood Count 7.5 K/mcL (4.3-11.1)
[2020-01-25 04:53] LABS: Calcium 8.4 mg/dL (8.6-10.3); Potassium 3.7 mEq/L (3.5-5.1)
[2020-01-25] MEDS: *HR* Heparin 5,000 UNIT/ML VIAL SQ SCH ×2 (05:07→15:45)
[2020-01-25] MEDS: Insulin LISPRO 300 UNITS/3 ML VIAL SQ SCH ×3 (07:57→16:40)
[2020-01-25] MEDS ORDERED: diazePAM 2 MG TABLET PO PRN (08:19)
[2020-01-25] MEDS: Aspirin 81 MG TAB.CHEW PO SCH (08:38)
[2020-01-25] MEDS: cloNIDine HCL 0.1 MG TABLET PO SCH ×3 (08:38→21:02)
[2020-01-25] MEDS: Magnesium Oxide 400 MG TABLET PO SCH ×2 (08:38→21:02)
[2020-01-25] MEDS: NIFEdipine XL (24 HR) 60 MG TAB.ER.24 PO SCH (08:38)
[2020-01-25] MEDS: Cholecalciferol (D-3) 1,000 UNIT (25MCG) TABLET PO SCH (08:38)
[2020-01-25] MEDS: Furosemide 20 MG TABLET PO SCH (08:39)
[2020-01-25] MEDS: carvediloL 6.25 MG TABLET PO SCH ×2 (08:39→16:40)
[2020-01-25] MEDS: Insulin DETEMIR 100 UNIT/ML X5UNITS SQ SCH (21:02)
[2020-01-25] MEDS: Gabapentin 300 MG CAPSULE PO SCH (21:02)
[2020-01-26] MEDS: *HR* Heparin 5,000 UNIT/ML VIAL SQ SCH (05:28)
[2020-01-26 07:19] VITALS: BP 151/67
[2020-01-26] MEDS: Cholecalciferol (D-3) 1,000 UNIT (25MCG) TABLET PO SCH (09:13)
[2020-01-26] MEDS: Insulin LISPRO 300 UNITS/3 ML VIAL SQ SCH (09:13)
[2020-01-26] MEDS: carvediloL 6.25 MG TABLET PO SCH (09:13)
[2020-01-26] MEDS: NIFEdipine XL (24 HR) 60 MG TAB.ER.24 PO SCH (09:13)
[2020-01-26] MEDS: cloNIDine HCL 0.1 MG TABLET PO SCH (09:13)
[2020-01-26] MEDS: Magnesium Oxide 400 MG TABLET PO SCH (09:13)
[2020-01-26] MEDS: Aspirin 81 MG TAB.CHEW PO SCH (09:13)
[2020-01-26] MEDS: Furosemide 20 MG TABLET PO SCH (09:13)
== END 2020-01-26 11:10 | disposition home or self-care (01) | DRG 149 ==
LOC: 3BNU 11:38 → EMEROOARM 11:38 → 3BNU 14:38
PROVIDERS: ADMIT Student in an Organized Health Care Education/Training Program; ATTEND Student in an Organized Health Care Education/Training Program

== ENCOUNTER 2020-02-18 11:19 | Inpatient (IN) ==
[2020-02-18 11:55] LABS: Basophils # 0.1 K/mcL (0.0-0.2); Basophils % 0.6 %; Eosinophils # 0.4 K/mcL (0.0-0.6); Eosinophils % 3.2 %; Hematocrit 44.9 % (37.5-50.1); Hemoglobin 14.7 g/dL (12.9-16.9); Immature Granulocytes % 0.3 % (0-4); Lymphocytes # 1.5 K/mcL (0.6-4.6); Lymphocytes % 13.9 %; Mean Corpuscular HGB Conc 32.7 g/dL (31.6-35.5); Mean Corpuscular Hemoglobin 29.7 pg (28.0-33.3); Mean Corpuscular Volume 90.7 fL (83.0-100.0); Mean Platelet Volume 9.5 fL (9.4-12.4); Monocytes # 0.9 K/mcL (0.0-1.3); Monocytes % 8.4 %; Neutrophils # 8.1 K/mcL (1.6-8.9); Platelet Count 221 K/mcL (140-400); Red Blood Count 4.95 M/mcL (4.19-5.50); Red Cell Distribution Width 12.8 % (11.5-14.5); Segmented Neutrophils % 73.6 %; White Blood Count 11.1 K/mcL (4.3-11.1)
[2020-02-18 12:27] LABS: Alanine Aminotransferase 39 Units/L (7-52); Albumin 4.1 g/dL (3.5-5.7); Albumin/Globulin Ratio 1.5 (1.1-2.2); Alkaline Phosphatase 69 Units/L (34-104); Aspartate Amino Transferase 24 Units/L (13-39); BUN/Creatinine Ratio 18 (6-26); Bilirubin,Direct 0.1 mg/dL (0.0-0.2); Bilirubin,Indirect 0.6 mg/dL (0.0-1.0); Bilirubin,Total 0.7 mg/dL (0.3-1.0); Blood Urea Nitrogen 28 mg/dL (8-23); Calcium 9.6 mg/dL (8.6-10.3); Carbon Dioxide 26 mEq/L (23-29); Chloride 104 mEq/L (98-107); Globulin 2.8 g/dL (2.4-3.5); Glucose 184 mg/dL (70-105); Lipase 46 Units/L (11-82); Osmolality,Calculated 298 (280-300); Potassium 3.6 mEq/L (3.5-5.1); Sodium 139 mEq/L (136-145); Total Protein 6.9 g/dL (6.4-8.9); Troponin I < 0.03 ng/mL (< 0.04); eGFR For African Americans 51 (> 60); eGFR For Non-African Americans 42 (> 60)
[2020-02-18] MEDS ORDERED: Nitroglycerin 0.4 MG TAB.SUBL SL PRN (12:56)
[2020-02-18] MEDS ORDERED: D5% in Water 1,000 ML IVC PRN (13:34)
[2020-02-18] MEDS ORDERED: *HR* Dextrose 50 % in Water (Vial) 50 ML VIAL IVP PRN (13:34)
[2020-02-18] MEDS ORDERED: Dextrose Gel 15 GM/37.5 ML TUBE PO PRN ×2 (13:34)
[2020-02-18] MEDS ORDERED: Acetaminophen 325 MG TABLET PO PRN (13:37)
[2020-02-18] MEDS ORDERED: Ondansetron 4 MG/2 ML VIAL IVP PRN (13:37)
[2020-02-18] MEDS ORDERED: Naloxone 0.4 MG/ML INJ IVP PRN (13:37)
[2020-02-18] MEDS: Insulin LISPRO 300 UNITS/3 ML VIAL SUBQ SCH ×3 (15:00→21:19)
[2020-02-18] MEDS: *HR* Heparin 5,000 UNIT/ML VIAL SQ SCH (21:19)
[2020-02-19 00:39] LABS: Hematocrit 40.9 % (37.5-50.1); Hemoglobin 13.7 g/dL (12.9-16.9); Mean Corpuscular HGB Conc 33.5 g/dL (31.6-35.5); Mean Corpuscular Hemoglobin 30.9 pg (28.0-33.3); Mean Corpuscular Volume 92.3 fL (83.0-100.0); Mean Platelet Volume 9.9 fL (9.4-12.4); Platelet Count 211 K/mcL (140-400); Red Blood Count 4.43 M/mcL (4.19-5.50); Red Cell Distribution Width 12.8 % (11.5-14.5); White Blood Count 8.8 K/mcL (4.3-11.1)
[2020-02-19 00:48] LABS: Calcium 9.1 mg/dL (8.6-10.3); Chol/HDL Ratio 3.5 (0-4.9); Magnesium 1.9 mg/dL (1.6-2.6); Potassium 3.4 mEq/L (3.5-5.1)
[2020-02-19] MEDS: Insulin LISPRO 300 UNITS/3 ML VIAL SUBQ SCH ×9 (00:48→21:34)
[2020-02-19] MEDS: *HR* Heparin 5,000 UNIT/ML VIAL SQ SCH ×3 (04:59→21:32)
[2020-02-19] MEDS ORDERED: Regadenoson 0.4 MG/5 ML SYRINGE IVP ONE (06:44)
[2020-02-19] MEDS: Aspirin Enteric Coated 81 MG Tablet PO SCH (08:44)
[2020-02-19] MEDS ORDERED: amLODIPine 5 MG TABLET PO SCH (09:15)
[2020-02-19] MEDS: Furosemide 20 MG TABLET PO SCH (09:47)
[2020-02-19] MEDS: carvediloL 25 MG TABLET PO SCH ×2 (09:47→17:37)
[2020-02-19 10:55] LABS: Estimated Average Glucose 197 mg/dl; Hemoglobin A1C 8.5 %
[2020-02-19] MEDS: Insulin NPH/REG 70/30 100 UNIT/ML (x5UNIT) SUBQ SCH ×2 (11:31→17:24)
[2020-02-19] MEDS ORDERED: 0.9 % Sodium Chloride 1,000 ML IVC SCH (14:00)
[2020-02-19] MEDS: amLODIPine 5 MG TABLET PO SCH (21:31)
[2020-02-19] MEDS: Gabapentin 300 MG CAPSULE PO SCH (21:31)
[2020-02-20] MEDS: Insulin LISPRO 300 UNITS/3 ML VIAL SUBQ SCH ×5 (01:19→21:08)
[2020-02-20 04:34] LABS: Hematocrit 41.4 % (37.5-50.1); Hemoglobin 13.6 g/dL (12.9-16.9); Mean Corpuscular HGB Conc 32.9 g/dL (31.6-35.5); Mean Corpuscular Hemoglobin 30.4 pg (28.0-33.3); Mean Corpuscular Volume 92.6 fL (83.0-100.0); Mean Platelet Volume 9.4 fL (9.4-12.4); Platelet Count 197 K/mcL (140-400); Red Blood Count 4.47 M/mcL (4.19-5.50); Red Cell Distribution Width 12.8 % (11.5-14.5); White Blood Count 8.2 K/mcL (4.3-11.1)
[2020-02-20 04:51] LABS: Calcium 8.8 mg/dL (8.6-10.3); Potassium 3.4 mEq/L (3.5-5.1)
[2020-02-20] MEDS: *HR* Heparin 5,000 UNIT/ML VIAL SQ SCH ×3 (06:24→21:08)
[2020-02-20] MEDS ORDERED: 0.9 % Sodium Chloride 2,000 ML ONE (07:58)
[2020-02-20] MEDS ORDERED: Nitroglycerin 1,000 MCG/10 ML VIAL IV ONE (07:59)
[2020-02-20] MEDS ORDERED: Heparin 1,000 UNITS/500 mL 500 ML ONE (07:59)
[2020-02-20] MEDS ORDERED: ISOVUE-370 200 ML INFUS..BTL ONE ×2 (07:59→08:06)
[2020-02-20] MEDS ORDERED: *HR* Heparin 10,000 UNIT/10 ML VIAL ONE (07:59)
[2020-02-20] MEDS ORDERED: *HR* Midazolam HCl 2 MG/2 ML VIAL ONE (08:29)
[2020-02-20] MEDS: carvediloL 25 MG TABLET PO SCH ×2 (08:35→17:55)
[2020-02-20] MEDS: Aspirin Enteric Coated 81 MG Tablet PO SCH (08:35)
[2020-02-20] MEDS: Furosemide 20 MG TABLET PO SCH (08:35)
[2020-02-20] MEDS: amLODIPine 5 MG TABLET PO SCH ×2 (08:35→21:11)
[2020-02-20] MEDS: Insulin NPH/REG 70/30 100 UNIT/ML (x5UNIT) SUBQ SCH ×2 (08:37→18:07)
[2020-02-20] MEDS: hydrALAZINE 25 MG TABLET PO SCH ×3 (09:58→23:21)
[2020-02-20] MEDS ORDERED: 0.9 % Sodium Chloride 1,000 ML IVC SCH (12:00)
[2020-02-20] MEDS ORDERED: amLODIPine 5 MG TABLET PO ONE (12:00)
[2020-02-20] MEDS: Gabapentin 300 MG CAPSULE PO SCH (21:10)
[2020-02-21 01:21] LABS: Basophils # 0.1 K/mcL (0.0-0.2); Basophils % 0.7 %; Eosinophils # 0.5 K/mcL (0.0-0.6); Eosinophils % 6.9 %; Hematocrit 39.2 % (37.5-50.1); Immature Granulocytes % 0.3 % (0-4); Lymphocytes # 1.7 K/mcL (0.6-4.6); Lymphocytes % 23.1 %; Mean Corpuscular HGB Conc 33.2 g/dL (31.6-35.5); Mean Corpuscular Hemoglobin 30.4 pg (28.0-33.3); Mean Corpuscular Volume 91.6 fL (83.0-100.0); Mean Platelet Volume 9.4 fL (9.4-12.4); Monocytes # 0.8 K/mcL (0.0-1.3); Monocytes % 10.9 %; Neutrophils # 4.3 K/mcL (1.6-8.9); Platelet Count 190 K/mcL (140-400); Red Blood Count 4.28 M/mcL (4.19-5.50); Red Cell Distribution Width 12.9 % (11.5-14.5); Segmented Neutrophils % 58.1 %; White Blood Count 7.4 K/mcL (4.3-11.1)
[2020-02-21 01:39] LABS: Calcium 8.6 mg/dL (8.6-10.3); Potassium 3.3 mEq/L (3.5-5.1)
[2020-02-21 01:40] LABS: Magnesium 1.5 mg/dL (1.6-2.6); Phosphorous 3.9 mg/dL (2.7-4.5)
[2020-02-21] MEDS: *HR* Heparin 5,000 UNIT/ML VIAL SQ SCH (03:28)
[2020-02-21] MEDS ORDERED: Magnesium Sulfate 1 GM/102 ML PIGGYBACK IVPB ONE (07:56)
[2020-02-21] MEDS: Insulin LISPRO 300 UNITS/3 ML VIAL SUBQ SCH (08:45)
[2020-02-21] MEDS: amLODIPine 5 MG TABLET PO SCH (08:49)
[2020-02-21] MEDS: carvediloL 25 MG TABLET PO SCH (08:49)
[2020-02-21] MEDS: hydrALAZINE 25 MG TABLET PO SCH (08:49)
[2020-02-21] MEDS: Aspirin Enteric Coated 81 MG Tablet PO SCH (08:49)
[2020-02-21] MEDS ORDERED: Isosorbide MONOnitrate (24 HR) 30 MG TAB.ER.24H PO SCH (09:00)
[2020-02-21] MEDS ORDERED: Magnesium Oxide 400 MG TABLET PO SCH (09:00)
[2020-02-21] MEDS ORDERED: Furosemide 20 MG TABLET PO SCH (09:00)
[2020-02-21] MEDS: Insulin NPH/REG 70/30 100 UNIT/ML (x5UNIT) SUBQ SCH (09:10)
[2020-02-21 10:09] VITALS: BP 129/69
== END 2020-02-21 12:01 | disposition home health service (06) | DRG 247 ==
LOC: 3BNU 11:19 → EMEROOARM 11:19 → SUATTDRO 13:19 → 3BNU 14:16
PROVIDERS: ADMIT Student in an Organized Health Care Education/Training Program; ATTEND Internal Medicine

== ENCOUNTER 2020-07-07 10:58 | Observation (INO) ==
[2020-07-07] MEDS ORDERED: 0.9 % Sodium Chloride 1,000 ML IVC ONE (11:21)
[2020-07-07] MEDS ORDERED: Morphine Sulfate 2 MG/ML SYRINGE IVP ONE (11:21)
[2020-07-07] MEDS: Ondansetron 4 MG/2 ML VIAL IVP PRN ×2 (11:41→13:25)
[2020-07-07 11:48] LABS: Basophils # 0.1 K/mcL (0.0-0.2); Basophils % 0.6 %; Eosinophils # 0.3 K/mcL (0.0-0.6); Eosinophils % 3.1 %; Hematocrit 42.3 % (37.5-50.1); Immature Granulocytes % 0.5 % (0-4); Lymphocytes # 1.4 K/mcL (0.6-4.6); Lymphocytes % 12.8 %; Mean Corpuscular HGB Conc 33.1 g/dL (31.6-35.5); Mean Corpuscular Volume 90.6 fL (83.0-100.0); Mean Platelet Volume 9.2 fL (9.4-12.4); Monocytes % 8.9 %; Neutrophils # 8.2 K/mcL (1.6-8.9); Platelet Count 242 K/mcL (140-400); Red Blood Count 4.67 M/mcL (4.19-5.50); Red Cell Distribution Width 13.3 % (11.5-14.5); Segmented Neutrophils % 74.1 %
[2020-07-07 11:54] LABS: Prothrombin Time 11.7 Seconds (9.4-12.1)
[2020-07-07 11:57] LABS: Activated Partial Thrombo Time 26.6 Seconds (26.0-36.0)
[2020-07-07 12:08] LABS: Alanine Aminotransferase 27 Units/L (7-52); Albumin 4.2 g/dL (3.5-5.7); Albumin/Globulin Ratio 1.6 (1.1-2.2); Alkaline Phosphatase 64 Units/L (34-104); Aspartate Amino Transferase 16 Units/L (13-39); BUN/Creatinine Ratio 17 (6-26); Bilirubin,Indirect 0.6 mg/dL (0.0-1.0); Bilirubin,Total 0.6 mg/dL (0.3-1.0); Blood Urea Nitrogen 33 mg/dL (8-23); Calcium 9.6 mg/dL (8.6-10.3); Carbon Dioxide 25 mEq/L (23-29); Chloride 105 mEq/L (98-107); Globulin 2.7 g/dL (2.4-3.5); Glucose 123 mg/dL (70-105); Lipase 51 Units/L (11-82); Osmolality,Calculated 299 (280-300); Potassium 3.8 mEq/L (3.5-5.1); Sodium 140 mEq/L (136-145); Total Protein 6.9 g/dL (6.4-8.9); eGFR For African Americans 42 (> 60); eGFR For Non-African Americans 34 (> 60)
[2020-07-07 12:09] LABS: Troponin I < 0.03 ng/mL (< 0.04)
[2020-07-07 12:46] LABS: Bilirubin,Urine Negative (Negative); Blood,Urine Negative (Negative); Clarity,Urine Clear (Clear); Color,Urine Colorless (Yellow); Glucose,Urine (UA) Normal (Normal); Hyaline Casts,Urine Few per lpf (None Seen); Ketones,Urine Negative (Negative); Leukocyte Esterase,Urine Negative (Negative); Nitrite,Urine Negative (Negative); Protein,Urine 30 mg/dL (Neg-Trace); RBC,Urine 0-3 per hpf (0-3); Specific Gravity,Urine 1.012 (1.010-1.025); Urobilinogen,Urine Normal (Normal)
[2020-07-07] MEDS ORDERED: *HR* OxyCODONE/APAP 5/325 TABLET PO ONE (13:12)
[2020-07-07] MEDS ORDERED: Isovue-370 500 ML BOTTLE IVP ONE (13:32)
[2020-07-07] MEDS ORDERED: *HR* Dextrose 50 % in Water (Vial) 50 ML VIAL ONE (15:59)
[2020-07-07] MEDS ORDERED: D5% in 0.45% NACL w KCl 20 MEQ/1,000 ML MLS IVC SCH (16:15)
[2020-07-07] MEDS ORDERED: *HR* Dextrose 50 % in Water (Vial) 50 ML VIAL IVP ONE (16:19)
[2020-07-07] MEDS ORDERED: Ondansetron 4 MG/2 ML VIAL IVP PRN ×2 (17:42→17:47)
[2020-07-07] MEDS ORDERED: Naloxone 0.4 MG/ML INJ IVP PRN (17:42)
[2020-07-07] MEDS ORDERED: *HR* Metoprolol 5 MG/5 ML VIAL IVP PRN (17:42)
[2020-07-07] MEDS ORDERED: Dextrose Gel 15 GM/37.5 ML TUBE PO PRN ×2 (17:44)
[2020-07-07] MEDS ORDERED: *HR* Dextrose 50 % in Water (Vial) 50 ML VIAL IVP PRN (17:44)
[2020-07-07] MEDS ORDERED: D5% in Water 1,000 ML IVC PRN (17:44)
[2020-07-07] MEDS ORDERED: Acetaminophen 325 MG TABLET PO PRN (17:49)
[2020-07-07] MEDS: 0.9 % Sodium Chloride 1,000 ML IVC SCH (17:58)
[2020-07-07] MEDS: Insulin LISPRO 300 UNITS/3 ML VIAL SUBQ SCH (18:05)
[2020-07-07] MEDS: carvediloL 25 MG TABLET PO SCH (20:01)
[2020-07-07] MEDS: amLODIPine 5 MG TABLET PO SCH (20:02)
[2020-07-07] MEDS ORDERED: Gabapentin 300 MG CAPSULE PO SCH (21:00)
[2020-07-08] MEDS: hydrALAZINE 25 MG TABLET PO SCH ×3 (01:06→16:35)
[2020-07-08] MEDS: Insulin LISPRO 300 UNITS/3 ML VIAL SUBQ SCH ×3 (01:06→12:12)
[2020-07-08] MEDS ORDERED: Pantoprazole 40 MG VIAL IVP SCH (09:00)
[2020-07-08] MEDS: carvediloL 25 MG TABLET PO SCH ×2 (09:11→16:35)
[2020-07-08] MEDS: amLODIPine 5 MG TABLET PO SCH (09:11)
[2020-07-08] MEDS ORDERED: Aspirin Enteric Coated 81 MG Tablet PO SCH (10:45)
[2020-07-08 11:00] LABS: Adenovirus Not Detected (Not Detect); Coronavirus 229E Not Detected (Not Detect); Coronavirus HKU1 Not Detected (Not Detect); Coronavirus NL63 Not Detected (Not Detect); Coronavirus OC43 Not Detected (Not Detect)
[2020-07-08 11:01] LABS: Bordetella Pertussis Not Detected (Not Detect); Chlamydophila pneumoniae Not Detected (Not Detect); Human Metapneumovirus Not Detected (Not Detect); Human Rhinovirus/Enterovirus Not Detected (Not Detect); Influenza A Subtype 2009 H1 Not Detected (Not Detect); Influenza B Not Detected (Not Detect); Mycoplasma pneumoniae Not Detected (Not Detect); Parainfluenza Virus 1 Not Detected (Not Detect); Parainfluenza Virus 2 Not Detected (Not Detect); Parainfluenza Virus 3 Not Detected (Not Detect); Parainfluenza Virus 4 Not Detected (Not Detect); Respiratory Syncytial Virus Not Detected (Not Detect); SARS-CoV-2 Not Detected (Not Detect)
[2020-07-08 15:16] VITALS: BP 156/68
[2020-07-08] MEDS: 0.9 % Sodium Chloride 1,000 ML IVC SCH (16:46)
== END 2020-07-08 18:33 | disposition home or self-care (01) ==
LOC: 3ANU 10:58 → EMEROOARM 10:58 → SUATTDRO 15:56 → 3ANU 16:33
PROVIDERS: ADMIT Surgery; ATTEND Surgery

== ENCOUNTER 2020-07-13 02:10 | Observation (INO) ==
[2020-07-13] MEDS ORDERED: 0.9 % Sodium Chloride 1,000 ML IVC ONE (02:39)
[2020-07-13] MEDS ORDERED: Morphine Sulfate 2 MG/ML SYRINGE IVP ONE (02:39)
[2020-07-13] MEDS ORDERED: Ondansetron 4 MG/2 ML VIAL IVP ONE (02:39)
[2020-07-13] MEDS ORDERED: Isovue-370 500 ML BOTTLE IVP ONE (03:14)
[2020-07-13 03:37] LABS: Basophils # 0.1 K/mcL (0.0-0.2); Basophils % 0.8 %; Eosinophils # 0.4 K/mcL (0.0-0.6); Eosinophils % 4.9 %; Hematocrit 39.6 % (37.5-50.1); Immature Granulocytes % 0.1 % (0-4); Lymphocytes # 1.3 K/mcL (0.6-4.6); Lymphocytes % 18.2 %; Mean Corpuscular HGB Conc 35.4 g/dL (31.6-35.5); Mean Corpuscular Hemoglobin 31.7 pg (28.0-33.3); Mean Corpuscular Volume 89.6 fL (83.0-100.0); Mean Platelet Volume 9.4 fL (9.4-12.4); Monocytes # 0.9 K/mcL (0.0-1.3); Monocytes % 12.2 %; Neutrophils # 4.6 K/mcL (1.6-8.9); Platelet Count 235 K/mcL (140-400); Red Blood Count 4.42 M/mcL (4.19-5.50); Red Cell Distribution Width 13.2 % (11.5-14.5); Segmented Neutrophils % 63.8 %; White Blood Count 7.2 K/mcL (4.3-11.1)
[2020-07-13 04:05] LABS: Alanine Aminotransferase 22 Units/L (7-52); Albumin 3.9 g/dL (3.5-5.7); Albumin/Globulin Ratio 1.3 (1.1-2.2); Alkaline Phosphatase 59 Units/L (34-104); Aspartate Amino Transferase 17 Units/L (13-39); BUN/Creatinine Ratio 16 (6-26); Bilirubin,Total 0.5 mg/dL (0.3-1.0); Blood Urea Nitrogen 30 mg/dL (8-23); Carbon Dioxide 25 mEq/L (23-29); Chloride 103 mEq/L (98-107); Globulin 2.9 g/dL (2.4-3.5); Glucose 241 mg/dL (70-105); Lipase 45 Units/L (11-82); Osmolality,Calculated 300 (280-300); Potassium 3.6 mEq/L (3.5-5.1); Sodium 138 mEq/L (136-145); Total Protein 6.8 g/dL (6.4-8.9); Troponin I < 0.03 ng/mL (< 0.04); eGFR For African Americans 42 (> 60); eGFR For Non-African Americans 35 (> 60)
[2020-07-13] MEDS ORDERED: Naloxone 0.4 MG/ML INJ IVP PRN (07:21)
[2020-07-13] MEDS ORDERED: Acetaminophen 325 MG TABLET PO PRN (09:06)
[2020-07-13] MEDS ORDERED: *HR* OxyCODONE Immed Rel 5 MG TABLET PO PRN (09:06)
[2020-07-13] MEDS ORDERED: *HR* OxyCODONE/APAP 5/325 TABLET PO PRN (09:07)
[2020-07-13] MEDS ORDERED: Ringers Solution, Lactated 1,000 ML IVC SCH (09:15)
[2020-07-13] MEDS ORDERED: Ondansetron 4 MG/2 ML VIAL IVP PRN (09:16)
[2020-07-13] MEDS: carvediloL 25 MG TABLET PO SCH ×2 (09:43→16:58)
[2020-07-13] MEDS: Aspirin Enteric Coated 81 MG Tablet PO SCH ×2 (09:43→16:58)
[2020-07-13] MEDS ORDERED: D5% in Water 1,000 ML IVC PRN (14:53)
[2020-07-13] MEDS ORDERED: Dextrose Gel 15 GM/37.5 ML TUBE PO PRN ×2 (14:53)
[2020-07-13] MEDS ORDERED: *HR* Dextrose 50 % in Water (Vial) 50 ML VIAL IVP PRN (14:53)
[2020-07-13] MEDS: Insulin LISPRO 300 UNITS/3 ML VIAL SUBQ SCH ×3 (16:13→21:19)
[2020-07-13] MEDS: *HR* Heparin 5,000 UNIT/ML VIAL SQ SCH (16:57)
[2020-07-13] MEDS: amLODIPine 5 MG TABLET PO SCH (21:19)
[2020-07-13] MEDS: Gabapentin 300 MG CAPSULE PO SCH (21:19)
[2020-07-13] MEDS: hydrALAZINE 25 MG TABLET PO SCH (21:19)
[2020-07-13] MEDS: Magnesium Oxide 400 MG TABLET PO SCH (21:19)
[2020-07-14] MEDS: *HR* Heparin 5,000 UNIT/ML VIAL SQ SCH ×2 (05:19→17:42)
[2020-07-14 05:53] LABS: Basophils % 0.5 %; Eosinophils # 0.3 K/mcL (0.0-0.6); Eosinophils % 4.2 %; Hematocrit 40.4 % (37.5-50.1); Hemoglobin 13.5 g/dL (12.9-16.9); Immature Granulocytes % 0.3 % (0-4); Lymphocytes # 1.4 K/mcL (0.6-4.6); Lymphocytes % 18.6 %; Mean Corpuscular HGB Conc 33.4 g/dL (31.6-35.5); Mean Corpuscular Hemoglobin 30.8 pg (28.0-33.3); Mean Corpuscular Volume 92.2 fL (83.0-100.0); Mean Platelet Volume 9.1 fL (9.4-12.4); Monocytes # 0.7 K/mcL (0.0-1.3); Monocytes % 8.9 %; Neutrophils # 5.2 K/mcL (1.6-8.9); Platelet Count 227 K/mcL (140-400); Red Blood Count 4.38 M/mcL (4.19-5.50); Red Cell Distribution Width 13.2 % (11.5-14.5); Segmented Neutrophils % 67.5 %; White Blood Count 7.6 K/mcL (4.3-11.1)
[2020-07-14 06:14] LABS: Calcium 8.6 mg/dL (8.6-10.3); Potassium 3.9 mEq/L (3.5-5.1)
[2020-07-14] MEDS: Insulin LISPRO 300 UNITS/3 ML VIAL SUBQ SCH ×4 (08:32→20:14)
[2020-07-14] MEDS: amLODIPine 5 MG TABLET PO SCH ×2 (08:32→20:09)
[2020-07-14] MEDS: carvediloL 25 MG TABLET PO SCH ×2 (08:33→17:41)
[2020-07-14] MEDS: Multivit/Ca/Min/Fe/FA 1 TAB TABLET PO SCH (08:33)
[2020-07-14] MEDS: hydrALAZINE 25 MG TABLET PO SCH ×2 (08:33→20:10)
[2020-07-14] MEDS: Furosemide 20 MG TABLET PO SCH (08:33)
[2020-07-14] MEDS: Isosorbide MONOnitrate (24 HR) 30 MG TAB.ER.24H PO SCH (08:33)
[2020-07-14] MEDS: Magnesium Oxide 400 MG TABLET PO SCH ×2 (08:34→20:10)
[2020-07-14] MEDS ORDERED: Famotidine 20 MG TABLET PO SCH (09:00)
[2020-07-14] MEDS: Aspirin Enteric Coated 81 MG Tablet PO SCH (17:41)
[2020-07-14] MEDS: Gabapentin 300 MG CAPSULE PO SCH (20:10)
[2020-07-15] MEDS: *HR* Heparin 5,000 UNIT/ML VIAL SQ SCH (05:11)
[2020-07-15] MEDS: Insulin LISPRO 300 UNITS/3 ML VIAL SUBQ SCH ×2 (08:00→13:31)
[2020-07-15] MEDS: amLODIPine 5 MG TABLET PO SCH (08:01)
[2020-07-15] MEDS: hydrALAZINE 25 MG TABLET PO SCH (08:01)
[2020-07-15] MEDS: Furosemide 20 MG TABLET PO SCH (08:01)
[2020-07-15] MEDS: Magnesium Oxide 400 MG TABLET PO SCH (08:01)
[2020-07-15] MEDS: carvediloL 25 MG TABLET PO SCH (08:01)
[2020-07-15] MEDS: Multivit/Ca/Min/Fe/FA 1 TAB TABLET PO SCH (08:01)
[2020-07-15] MEDS: Isosorbide MONOnitrate (24 HR) 30 MG TAB.ER.24H PO SCH (08:01)
[2020-07-15] MEDS ORDERED: Famotidine 20 MG TABLET PO SCH (09:00)
[2020-07-15 09:24] LABS: Calcium 8.7 mg/dL (8.6-10.3); Potassium 3.9 mEq/L (3.5-5.1)
[2020-07-15 14:49] VITALS: BP 149/81
== END 2020-07-15 16:30 | disposition home or self-care (01) ==
LOC: 3ANU 02:10 → EMEROOARM 02:10 → SUATTDRO 05:46 → 3ANU 06:06
PROVIDERS: ADMIT Family Medicine; ATTEND Internal Medicine